=== PATIENT | male | born 1960 | race Caucasian/White ===

== ENCOUNTER 2016-07-28 00:09 | Inpatient (IN) | payer OTHER ==
[2016-07-28] MEDS ORDERED: SODIUM CHLORIDE 0.9% 500 ML IV STA (00:15)
[2016-07-28] MEDS ORDERED: ATORVASTATIN 80 MG TAB PO STA (00:15)
[2016-07-28] MEDS ORDERED: NITROGLYCERIN OINT 1 INCH/GM PACKET TOPICAL STA (00:15)
[2016-07-28] MEDS ORDERED: HEPARIN SODIUM,PORCINE 5,000 UNIT/ML 1 ML VIAL IV ONE (00:15)
--- NOTE | 2016-07-28 00:20 | ED ---
General Adult HPI - General Chief complaint: Chest Pain Stated complaint: Chest Pain Time Seen by Provider: 07/28/16 00:09 Source: patient, EMS, RN notes reviewed Mode of arrival: EMS - History of Present Illness Initial comments: This is a 56-year-old male who presents emergency Department complaining of chest pain. Patient states started approximate one hour ago. Patient states the pain initially began in his left arm and then started in his chest. Patient states he had a short episode of shortness of breath. Patient states he has some diaphoresis. Patient claims he was nauseated as well. Patient states currently the pain is much better after he got nitroglycerin. Patient states he is not short of breath at this time he doesn't feel as though was sweating. Patient denies having any heart history. Patient states he is diabetic. Refuses to take any medicines for it because he doesn't believe in them. Patient states she is a smoker. Patient denies any family history of heart disease. Patient denies headache patient denies numbness weakness. Patient denies any recent fever chills or cough. Patient denies any abdominal pain patient denies any vomiting or diarrhea recently. - Related Data Home Medications Medication Instructions Recorded Confirmed HYDROcodone/APAP 10-325MG [[place] 1 tab PO TID 04/02/14 09/27/15 10] Gabapentin [Gabapentin] 300 mg PO TID 06/06/15 09/27/15 Previous Rx's Medication Instructions Recorded Cephalexin [Keflex] 500 mg PO Q6HR 12 Days 08/25/15 Cephalexin [Keflex] 500 mg PO Q6HR #30 cap 09/04/15 FLUoxetine HCL [PROzac] 10 mg PO DAILY #30 cap 09/04/15 Allergies Allergy/AdvReac Type Severity Reaction Status Date / Time No Known Allergies Allergy Verified 07/28/16 00:14 Review of Systems ROS Statement: Those systems with pertinent positive or pertinent negative responses have been documented in the HPI. ROS Other: All systems not noted in ROS Statement are negative. Past Medical History Past Medical History: Chest Pain / Angina, Diabetes Mellitus Additional Past Medical History / Comment(s): diverticulitis, constipation, freq urination,sob,general chronic pain History of Any Multi-Drug Resistant Organisms: None Reported Past Surgical History: Orthopedic Surgery Additional Past Surgical History / Comment(s): colonoscopy,eye,rt knee, 5 surg to lt ear, eye Past Anesthesia/Blood Transfusion Reactions: Motion Sickness Past Psychological History: Bipolar, Depression Smoking Status: Current every day smoker Past Alcohol Use History: None Reported Additional Past Alcohol Use History / Comment(s): started smoking 1987 Past Drug Use History: None Reported Additional Drug Use History / Comment(s): marijuana daily - Past Family History Mother History Unknown: Yes Father History Unknown: Yes General Exam - General Exam Comments Initial Comments: GENERAL: Patient is well-developed and well-nourished. Patient is nontoxic and well- hydrated and is in mild distress. ENT: Neck is soft and supple. No significant lymphadenopathy is noted. Oropharynx is clear. Moist mucous membranes. Neck has full range of motion without eliciting any pain. EYES: The sclera were anicteric and conjunctiva were pink and moist. Extraocular movements were intact and pupils were equal round and reactive to light. Eyelids were unremarkable. PULMONARY: Unlabored respirations. Good breath sounds bilaterally. No audible rales rhonchi or wheezing was noted. CARDIOVASCULAR: There is a regular rate and rhythm without any murmurs gallops or rubs. ABDOMEN: Soft and nontender with normal bowel sounds. No palpable organomegaly was noted. There is no palpable pulsatile mass. SKIN: Skin is clear with no lesions or rashes and otherwise unremarkable. NEUROLOGIC: Patient is alert and oriented x3. Cranial nerves II through XII are grossly intact. Motor and sensory are also intact. Normal speech, volume and content. Symmetrical smile. MUSCULOSKELETAL: Normal extremities with adequate strength and full range of motion. No lower extremity swelling or edema. No calf tenderness. LYMPHATICS: No significant lymphadenopathy is noted PSYCHIATRIC: Normal psychiatric evaluation. 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 EKG looks consistent for an inferior lateral [place]. Prior to arrival I called a STEMI overhead based on the transmitted EKG. I spoke with Dr. Garduno and the cath team was called in Chest x-ray is normal. I started the patient on heparin bolus of 4000 gave the patient Lipitor 80 mg. I also gave the patient Nitropaste. And 500 mL bolus Critical Care Time Critical Care Time: Yes Total Critical Care Time: 35 Disposition Clinical Impression: ST elevation myocardial infarction (STEMI) Disposition: ADMITTED IP TO THIS [facility] Time of Disposition: 00:22
[2016-07-28 00:31] LABS: Aty Lym Flag Slight; CH 33.9; CHCM 35.6; HCT 48.2 % (39.0-53.0); HDW 2.62; HGB 16.7 gm/dL (13.0-17.5); MCH 33.1 pg (25.0-35.0); MCHC 34.6 g/dL (31.0-37.0); MCV 95.6 fL (80.0-100.0); Mean Platelet Volume 9.3; RBC 5.05 m/uL (4.30-5.90); RDW 13.4 % (11.5-15.5); WBC 8.4 k/uL (3.8-10.6)
[2016-07-28 00:34] LABS: ALT 49 U/L (21-72); AST 47 U/L (17-59); Alkaline Phosphatase 91 U/L (38-126); Anion Gap 9 mmol/L; Blood Urea Nitrogen 18 mg/dL (9-20); Calcium 9.6 mg/dL (8.4-10.2); Carbon Dioxide 30 mmol/L (22-30); Chloride 100 mmol/L (98-107); Glucose 306 mg/dL (74-99); Non-African American GFR(MDRD) >60 (>60 ml/min/1.73 sqM); Potassium 3.9 mmol/L (3.5-5.1); Sodium 139 mmol/L (137-145); Total Bilirubin 0.5 mg/dL (0.2-1.3); Total Protein 6.7 g/dL (6.3-8.2)
[2016-07-28 00:35] LABS: Partial Thromboplastin Time 23.3 sec (22.0-30.0); Prothrombin Time 10.1 sec (9.0-12.0)
[2016-07-28 00:38] LABS: Glucose,Whole Blood 345 mg/dL (75-99)
[2016-07-28] MEDS ORDERED: INSULIN LISPRO (humaLOG) 300 UNIT/3 ML VIAL SQ ONE (00:42)
[2016-07-28] MEDS ORDERED: VERAPAMIL 2.5 MG/ML 2 ML AMP ONE (00:45)
[2016-07-28] MEDS ORDERED: MIDAZOLAM 2 MG/2 ML VIAL ONE (00:45)
[2016-07-28] MEDS ORDERED: LIDOCAINE 2% INJ 20 MG/ML (20 ML MDV) ONE (00:46)
[2016-07-28 00:49] LABS: Add Differential Manual Differential
[2016-07-28 00:51] LABS: Manual Review Performed; Nucleated Red Blood Cells 0 /100 WBC (0-0); Reactive Lymphocytes Present; Total Cells Counted 100
--- NOTE | 2016-07-28 00:53 | XR ---
EXAM: XR Chest, 1 View. CLINICAL HISTORY: Reason: Pain TECHNIQUE: Frontal view of the chest. COMPARISON: Chest radiograph on 12/13/2014 FINDINGS: Hardware: None. Lungs/pleura: Mildly low lung volumes with mild left basilar atelectasis. No focal consolidation. No pleural effusion or pneumothorax. Heart/mediastinum: Normal. No cardiomegaly. Soft tissues: Unremarkable. Bones: Mild calcific tendinosis on the left. No acute fracture. Upper abdomen: Normal. IMPRESSION: Mildly low lung volumes with mild left basilar atelectasis. No focal consolidation.
[2016-07-28 00:59] LABS: Creatine Kinase MB 1.6 ng/mL (0.0-2.4)
[2016-07-28] MEDS ORDERED: IV FLUID CONTINUATION 1,000 ML IV ONE (01:00)
[2016-07-28] MEDS ORDERED: LIDOCAINE 2% INJ 20 MG/ML SQ ONE (01:01)
[2016-07-28 01:02] LABS: Troponin I 0.091 ng/mL (0.000-0.034)
[2016-07-28] MEDS ORDERED: MIDAZOLAM 2 MG/2 ML VIAL IV ONE (01:05)
[2016-07-28] MEDS ORDERED: BIVALIRUDIN BOLUS 250 MG/50 ML IV ONE (01:08)
[2016-07-28] MEDS ORDERED: BIVALIRUDIN 250 MG in SODIUM CHLORIDE 0.9% 50 ML IV ONE (01:09)
[2016-07-28] MEDS: NITROGLYCERIN 1000MCG/10ML SYRINGE INTRACORON ONE ×2 (01:12→01:22)
[2016-07-28] MEDS ORDERED: HYDROmorphone 2 MG/ML 1 ML SYRINGE ONE (01:13)
[2016-07-28] MEDS ORDERED: HYDROmorphone 2 MG/ML 1 ML SYRINGE IV ONE (01:16)
[2016-07-28] MEDS ORDERED: NITROGLYCERIN 1000MCG/10ML SYRINGE INTRACORON ONE (01:26)
[2016-07-28] MEDS ORDERED: PRASUGREL 10 MG TAB ONE (01:28)
[2016-07-28] MEDS ORDERED: PRASUGREL 10 MG TAB PO ONE (01:34)
[2016-07-28] MEDS ORDERED: IOHEXOL 350 MG/ML 100 ML BOTTLE INJ ONE (01:35)
[2016-07-28] MEDS ORDERED: MAG HYDROX/AL HYDROX/SIMETH 30 ML CUP PO PRN (01:47)
[2016-07-28] MEDS ORDERED: ZOLPIDEM 5 MG TAB PO PRN (01:47)
[2016-07-28] MEDS ORDERED: SODIUM CHLORIDE 0.9% 500 ML IV ONE (01:47)
[2016-07-28] MEDS ORDERED: ATROPINE SULFATE 0.1 MG/ML 10ML SYRINGE IV PRN (01:47)
[2016-07-28] MEDS ORDERED: NITROGLYCERIN SL TABS 0.4 MG TAB SUBLINGUAL PRN (01:47)
[2016-07-28] MEDS ORDERED: RX INFO: IV CONTRAST WAS GIVEN 1 EACH MISC MISCELLANE PRN (01:47)
[2016-07-28 01:50] LABS: Magnesium 1.8 mg/dL (1.6-2.3)
--- NOTE | 2016-07-28 01:55 | P.CRDCN ---
History of Present Illness Consult date: 07/28/16 Chief complaint: chest discomfort History of present illness: This is a 56-year-old gentleman who was brought by ambulance to the emergency department because of chest discomfort. The patient was experiencing chest discomfort over the last 3-4 days. Last night discomfort was more intense where he called ambulance and he was found to be an acute inferior ST elevation myocardial infarction. The patient was transferred to the emergency department on subsequently he underwent heart catheterization which showed acute total occlusion of the ostial and proximal right coronary artery. He underwent successful stenting of the ostial/proximal right coronary artery using drug-eluting stent with a good angiographic results and good flow in the RCA. Beside that the patient was found to have severe disease involving the proximal left anterior descending artery and that need to be stented in the next few days. The patient is not aware of any history of diabetes or hypertension or dyslipidemia. He is a smoker for long time. The family history is unknown because the patient is adopted. The patient is going to be admitted to the intensive care unit. He will be started on dual antiplatelet therapy along with anti-ischemic medication and statin. An echocardiogram was Doppler would be performed as well to assess for any wall motion abnormalities and to assess LV function. Past Medical History Past Medical History: Chest Pain / Angina, Diabetes Mellitus Additional Past Medical History / Comment(s): diverticulitis, constipation, freq urination,sob,general chronic pain History of Any Multi-Drug Resistant Organisms: None Reported Past Surgical History: Orthopedic Surgery Additional Past Surgical History / Comment(s): colonoscopy,eye,rt knee, 5 surg to lt ear, eye Past Anesthesia/Blood Transfusion Reactions: Motion Sickness Past Psychological History: Bipolar, Depression Smoking Status: Current every day smoker Past Alcohol Use History: None Reported Additional Past Alcohol Use History / Comment(s): started smoking 1987 Past Drug Use History: None Reported Additional Drug Use History / Comment(s): marijuana daily - Past Family History Mother History Unknown: Yes Father History Unknown: Yes Medications and Allergies Home Medications Medication Instructions Recorded Confirmed Type HYDROcodone/APAP 10-325MG [[place] 1 tab PO TID 04/02/14 07/28/16 History 10] Gabapentin [Gabapentin] 300 mg PO TID 06/06/15 07/28/16 History Allergies Allergy/AdvReac Type Severity Reaction Status Date / Time No Known Allergies Allergy Verified 07/28/16 00:14 Physical Exam Vitals: Vital Signs Pulse Resp BP Pulse Ox 07/28/16 00:36 52 L 18 129/79 99 Intake and Output 07/27/16 07/27/16 07/28/16 14:59 22:59 06:59 Intake Total 200 Balance 200 Intake: IV 200 - Constitutional General appearance: no acute distress - Respiratory Respiratory: bilateral: CTA - Cardiovascular Rhythm: regular Heart sounds: normal: S1, S2 Abnormal Heart Sounds: systolic murmur Results 07/28/16 00:13 07/28/16 00:13 Intake and Output 07/27/16 07/27/16 07/28/16 14:59 22:59 06:59 Intake Total 200 Balance 200 Intake: IV 200 Assessment and Plan Plan: Assessment Acute inferior ST elevation myocardial infarction Significant history of smoking Plan The patient underwent successful stenting of the ostial/proximal RCA Still have severe residual disease involving the proximal LAD ICU admission Dual antiplatelet therapy with IVIS inhibitor and beta nancy and statin An echocardiogram was Doppler Follow-up with the patient
[2016-07-28] MEDS ORDERED: SODIUM CHLORIDE 0.9% 1,000 ML IV SCH (02:00)
[2016-07-28 02:12] LABS: Glucose,Whole Blood 294 mg/dL (75-99)
[2016-07-28 03:01] VITALS: BMI 23.2
[2016-07-28] MEDS ORDERED: HYDROcodone/APAP 10-325MG 1 EACH TAB PO PRN (05:21)
[2016-07-28] MEDS: GABAPENTIN 300 MG CAP PO SCH ×3 (05:57→21:06)
[2016-07-28] MEDS ORDERED: Magnesium Replacement Protocol 1 EACH MISC MISCELLANE PRN (07:20)
[2016-07-28] MEDS ORDERED: Potassium Replacement Protocol 1 EACH MISC MISCELLANE PRN (07:20)
[2016-07-28 07:32] LABS: Glucose,Whole Blood 234 mg/dL (75-99)
[2016-07-28] MEDS ORDERED: POTASSIUM CHLORIDE ER 20 MEQ TAB.ER PO SCH (08:00)
[2016-07-28] MEDS: MAGNESIUM SULFATE-D5W PMX 1 GM in DEXTROSE/WATER 1 100ML.BAG IVPB SCH ×2 (08:12→10:00)
[2016-07-28] MEDS: ONDANSETRON 4 MG/2 ML VIAL IVP PRN ×2 (08:22→19:51)
[2016-07-28] MEDS: INSULIN LISPRO (humaLOG) 300 UNIT/3 ML VIAL SQ SCH ×4 (08:24→21:04)
[2016-07-28 10:12] LABS: Cholesterol 210 mg/dL (<200); HDL Cholesterol 31 mg/dL (40-60); Triglycerides 432 mg/dL (<150)
--- NOTE | 2016-07-28 12:00 | P.PN ---
Subjective Patient underwent coronary angiography and coronary stenting in the setting of an acute inferior posterior lateral [place] When I saw him is complaining of nausea he was given some Zofran but his heart rate and blood pressure were normal and he denied any chest discomfort On examination blood pressure is normal heart rates are normal Pulse rate in the 70s, afebrile 97.8F, blood pressure 119/82 mmHg Normal breath sounds no rhonchi no crackles Heart sounds S1 and S2 are soft no murmurs no gallops Abdomen soft nontender Extremities warm no edema Impression Acute inferior wall NM with normal heart rate and blood pressure and no more chest discomfort status post stenting, patient complaining of nausea and was treated with Zofran and is improving Plan Hold lisinopril, continue beta blockers as long as blood pressure is normal continue antiplatelet agents and statins Continue ICU monitoring Objective - Vital Signs Vital signs: Vital Signs Temp 97.8 F 07/28/16 08:00 Pulse 73 07/28/16 08:00 Resp 13 07/28/16 08:00 BP 119/82 07/28/16 08:00 Pulse Ox 98 07/28/16 08:00 Intake & Output 07/27/16 07/28/16 07/28/16 18:59 06:59 18:59 Intake Total 852 400 Output Total 200 600 Balance 652 -200 Weight 67.3 kg Intake: IV 852 200 Sodium Chloride 0.9% 1, 400 200 000 ml @ 100 mls/hr IV . Q10H HAKAN Rx#:[id number] Intake, IV Titration 200 Amount Magnesium Sulfate-D5w Pmx 200 1 gm In Dextrose/Water 1 100ml.bag @ 100 mls/hr IVPB Q1H HAKAN Rx#: [id number] Output: Urine 200 600 Other: Voiding Method Urinal - Labs CBC & Chem 7: 07/28/16 00:13 07/28/16 00:13 Labs: Abnormal Lab Results - Last 24 Hours (Table) 07/28/16 07/28/16 07/28/16 Range/Units 00:36 02:09 07:30 POC Glucose (mg/dL) 345 H 294 H 234 H (75-99) mg/dL Troponin I (0.000-0.034) ng/mL Triglycerides (<150) mg/dL Cholesterol (<200) mg/dL HDL Cholesterol (40-60) mg/dL 07/28/16 07/28/16 Range/Units 07:42 07:42 POC Glucose (mg/dL) (75-99) mg/dL Troponin I 106.000 H* (0.000-0.034) ng/mL Triglycerides 432 H (<150) mg/dL Cholesterol 210 H (<200) mg/dL HDL Cholesterol 31 L (40-60) mg/dL
--- NOTE | 2016-07-28 12:13 | CC ---
DATE OF SERVICE: July 28, 2016 PERFORMING PHYSICIAN: James Tucker MD, legal executive. PROCEDURE PERFORMED: 1. Selective right and left coronary angiogram. 2. Successful stenting of the ostial/proximal right coronary artery using 2.75 x 23 mm Xience MARIA DEL ROSARIO with a good angiographic results. 3. Left heart catheterization. 4. Left ventriculography. INDICATION: This is a pleasant 56-year-old gentleman with no significant past medical history but history of smoking was brought by ambulance to the emergency room with chest discomfort and acute inferior ST elevation myocardial infarction. An emergent heart catheterization was advised. APPROACH: Right common femoral artery. COMPLICATIONS: None. LEVEL OF SEDATION: Moderate. PROCEDURE DESCRIPTION: After obtaining an informed consent, the patient was brought to the cardiac laboratory engineer. The right common femoral artery was cannulated using micropuncture technique, the micropuncture wire passed easily, then I placed 6 [place] sheath in the right common femoral artery. Subsequently, I did selective right and left coronary angiogram using JR4 and JL4 catheters. After that, I did intervene on the right coronary artery. Please see separate paragraph for that. After that, I did a left heart catheterization and LV gram. SELECTIVE CORONARY ANGIOGRAM: 1. Right coronary artery is a large-caliber vessel and it is a dominant vessel. It is 100% occluded in the proximal portion. 2. The left main is angiographically normal. It bifurcates into the left circumflex and left anterior descending artery. 3. The left circumflex a large-caliber vessel and it is a nondominant vessel. The proximal left circumflex appeared to have mild disease only. It gives rise to the first OM branch, which is a small-caliber vessel, seems to be angiographically normally. The mid left circumflex appeared to have mild disease only and gives rise into second OM, which bifurcates into to two small branches; both appeared to be angiographically normal. The left circumflex after the second OM appeared to be a small-caliber vessel. 4. Left anterior descending artery: The proximal LAD appeared to have a lesion in the range of 70% and seems to be eccentric. The mid LAD and distal LAD appeared to have mild disease only. HEMODYNAMICS: The left ventricular end-diastolic pressure appeared 40 mmHg and no gradient was identified across the aortic valve. Left ventriculography was performed in the [place] projection and using a power injection. The left ventricular systolic function appeared to be preserved with an ejection fraction of 50% to 55% with a inferior wall hypokinesia. PCI OF THE RIGHT CORONARY ARTERY: Anticoagulation was initiated using Angiomax. Subsequently, I took JR 3.5 with side hole guiding catheter and the RCA was engaged. A whisper wire was used to wire the RCA and crossing the acute total occlusion in the proximal portion. Subsequently PTCA ballooning using 2.0 x 12 mm balloon then I deployed 2.75 x 23 mm Xience MARIA DEL ROSARIO, where the stent was positioned under fluoroscopy guidance and it was deployed under 16 atmospheres for 20 seconds. The following angiogram showed good angiographic results. There was a lesion distal to the stent, appeared to be in the range of 40% to 50%. CONCLUSION: 1. Acute inferior ST elevation myocardial infarction. 2. Acute total occlusion of the proximal right coronary artery. 3. Severe disease involving the proximal left anterior descending artery. 4. Successful stenting of the ostial/proximal right coronary artery using 2.75 x 23 mm Xience MARIA DEL ROSARIO with a good angiographic results. 5. Preserved left ventricular systolic function. POSTPROCEDURE MANAGEMENT: 1. Dual antiplatelet therapy. 2. Risk factor modification. 3. Follow up with the patient.
[2016-07-28] MEDS: HYDROcodone/APAP 10-325MG 1 EACH TAB PO SCH ×3 (13:18→21:06)
[2016-07-28] MEDS: ASPIRIN 325 MG TAB PO SCH (13:18)
[2016-07-28 13:19] LABS: Glucose,Whole Blood 282 mg/dL (75-99)
[2016-07-28] MEDS: METOPROLOL TARTRATE 25 MG TAB PO SCH ×2 (13:19→21:07)
--- NOTE | 2016-07-28 13:26 | HP ---
DATE OF ADMISSION: 07/28/2016 56-year-old male single, Room 611 bed 2 in the ICU. HE IS A FULL CODE. He is 5 feet 7 inches height. Weight 67.3 kg, BSA 1.78 sq m body mass index 23.2 kg/sq m and allergy is unknown. Dictating the admission history and physical by Dr. Connor 07/28/2016 in the temporary absence of Dr. Meyer. HISTORY AND CHIEF COMPLAINT: The patient presented to the emergency room at [facility] and he is a 56-year-old male. He stated to Dr. Mclain who was in the ER physician and he stated that he had a chest pain and the chest pain started one hour prior to arrival and started in his left side of the neck and left arm and was pressure like in the chest and he had a short episode of shortness of breath and he had some radiation with it. When he arrived, the pain has been improved by nitroglycerin. At the time presentation in the emergency room, stated that the patient denied any history of DC in the past. He has history of diabetes mellitus, type II and hypertension, but he was not like to take medication. He denied also family history of heart disease and no headache. No numbness in the extremities. No fever, no chills, no cough, no vomiting, no diarrhea. The patient subsequently had EKG found that he had ST segment elevation in the inferior lead II-III and aVF and found that his troponin is elevated and with presentation of acute myocardial infarction in the inferior lead. The patient taken to the cardiac cath immediately by Dr. Tucker who was notified and did cardiac catheterization and subsequently they found that presentation right coronary artery disease and at that time stented with successful stenting of the ostial/proximal right coronary artery using drug eluting stent with good angiographic results and good flow in the right coronary artery. The patient also found that he had a severe disease involving the proximal left anterior descending that needs to be stented. However, not at this time when the patient is stabilized. Subsequently patient transferred to the ICU by monitor and he started by Dr. Tucker on dual antiplatelet therapy and statin. He ordered an echocardiogram to be done in the future. The patient in the hospital. The patient was seen today and discussed with him in the ICU, and he is comfortable. He had no chest pain. He is stable hemodynamically and blood pressure stable and discussed with him his past history. The patient he had history of anxiety, depression, questionable bipolar. He was seen in the past by [facility] psychiatry group, also he was seen for chronic back pain, by Dr. Sánchez who is treating him with medication for the pain control that we have been continued. The patient history also of diabetes mellitus type 2. He denied any urinary tract infection and he stated that he may have enlarged prostate but he does not know for sure. He denied any surgical orthopedically ( ) apparently he may have also have other psychiatric disorder, unclear at this point. He smokes, he is not clear how much he is smoking, per day but he smoked every day as well. He also smokes marijuana on a daily basis as well. He stated that he had in the stomach area some discomfort intermittently for the last two weeks. However, he denied any blood in the stools or black stools probably he may have some heartburn. He started smoking in 1987 and he does not report alcohol intake. SOCIAL HISTORY: He stated he never . However, he has 3 children, two boys and one girl. His parents he does not want to speak about. Allergy is unknown. Current medication is hydrocodone and Gabapentin which has been reviewed. On the current physical exam, patient is conscious, alert, oriented and his vital signs indicating that his blood pressure 119/82 with a mean 94 and a temperature of 98 nasal cannula on 2 L, temperature 97.8, pulse ox 98 on 2 liters. His respiratory rate ranging between 15 to 13. HEENT: His head was normocephalic, atraumatically shaved his hair of the head. His pupils he has symmetric pupils with the underlying right eye atraumatic penetration with a screwdriver but he still sees with it. Left eye is normal with the pupils reactive. Ears negative with normal hearing. The nose is negative. Oropharynx he had significant gum disease and also distortion of his teeth and needs significant care for his oropharynx. The neck was supple. No JVD. No thyromegaly. No lymphadenopathy. Trachea midline. CHEST: Clear to auscultation and percussion. No wheezes, no rhonchi. HEART: PMI in the fifth intercostal space, mildly outside the midclavicular line. Normal S1, S2. No gallop. The abdomen was soft, nontender. Positive bowel sounds. Even that he mentioned that he had some discomfort. Examined with the deep palpation with no evidence of pain. Plank area clear from any tenderness or pain, no suprapubic tenderness. His genitalia circumcised and normal testicle and he has been shaved for the catheterization which was done from the right femoral. No evidence of bleeding. EXTREMITIES: He had pigmentation and depigmentation with questionable that he had vertiglio versus stasis dermatitis. He stated that he has that in his late 30s, unclear at that time, pulses also perfused bilaterally. Neurologically he is stable and psychiatry he currently is stable. ASSESSMENT: 1. Acute non-ST elevation myocardial infarction in the inferior wall. 2. Status post cardiac cath and stenting of the right coronary ostial and proximal right coronary artery with successful. 3. Severe disease of the left anterior descending coronary artery. 4. Oropharyngeal gum disease and denture and oral care. 5. History of diabetes mellitus and Type 2. 6. Elevated troponin secondary to acute myocardial infarction. 7. Chronic pain syndrome and resumed his medication. His blood sugar at the time of admission was 306 and the magnesium was 108. His CPK 184. Troponin was 0.091 and the second was [address] segment elevation in the inferior lead. His lipid profile was triglyceride was 432. His total cholesterol was 210 and HDL was 31, with abnormally low HDL. PLAN: 1. Notifying Dr. Meyer in a.m. 7:00 a.m. of the patient's admission. 2. Continuing the current medication. 3. Echocardiogram will be done by tomorrow for the heart and resuming his pain medication and chronic pain medication as well. 4. Monitoring in the ICU. The admission history and physical. The patient had a chest x-ray on the admission. The chest x-ray was indicating low lung volume with mild left basilar atelectasis. Patient will be followed by Dr. Meyer in a.m.
[2016-07-28] MEDS ORDERED: HYDROcodone/APAP 10-325MG 1 EACH TAB PO SCH (16:00)
[2016-07-28 16:55] LABS: Glucose,Whole Blood 242 mg/dL (75-99)
[2016-07-28] MEDS: LISINOPRIL 10 MG TAB PO SCH (17:14)
[2016-07-28 19:58] LABS: Glucose,Whole Blood 114 mg/dL (75-99)
[2016-07-28] MEDS: ATORVASTATIN 80 MG TAB PO SCH (21:06)
[2016-07-29] MEDS ORDERED: PRASUGREL 10 MG TAB PO SCH (01:48)
[2016-07-29] MEDS: GABAPENTIN 300 MG CAP PO SCH ×4 (02:16→23:12)
[2016-07-29] MEDS ORDERED: HALOPERIDOL LACTATE 5 MG/ML 1 ML VIAL IM PRN ×3 (05:26→10:03)
[2016-07-29] MEDS ORDERED: HALOPERIDOL LACTATE 5 MG/ML 1 ML VIAL IM STA (05:29)
[2016-07-29] MEDS: INSULIN LISPRO (humaLOG) 300 UNIT/3 ML VIAL SQ SCH ×4 (06:15→21:34)
[2016-07-29] MEDS ORDERED: ONDANSETRON 4 MG TAB PO PRN (09:24)
[2016-07-29] MEDS ORDERED: LORazepam 2 MG/ML SYRINGE IM PRN (10:02)
[2016-07-29 10:10] LABS: Basophils % (A) 0 %; CH 33.6; Eosinophils # (A) 0.1 k/uL (0-0.7); Eosinophils % (A) 1 %; HCT 48.2 % (39.0-53.0); HDW 2.54; HGB 16.3 gm/dL (13.0-17.5); Luc % (Auto) 2; Lymphocytes # (A) 2.2 k/uL (1.0-4.8); Lymphocytes % (A) 20 %; MCH 32.6 pg (25.0-35.0); MCHC 33.8 g/dL (31.0-37.0); MCV 96.5 fL (80.0-100.0); Mean Platelet Volume 9.1; Monocytes # (A) 0.7 k/uL (0-1.0); Monocytes % (A) 6 %; Neutrophils # (A) 7.6 k/uL (1.3-7.7); Neutrophils % (A) 70 %; RBC 4.99 m/uL (4.30-5.90); RDW 13.4 % (11.5-15.5); WBC 10.8 k/uL (3.8-10.6); WBC (Perox) 10.45
--- NOTE | 2016-07-29 10:11 | ECHOF ---
Referral Reason:stemi MEASUREMENTS -------- HEIGHT: 170.2 cm WEIGHT: 67.1 kg BP: 136/82 RVIDd: 2.6 cm (< 3.3) IVSd: 1.2 cm (0.6 - 1.1) LVIDd: 4.2 cm (3.9 - 5.3) LVPWd: 1.0 cm (0.6 - 1.1) IVSs: 1.6 cm LVIDs: 2.7 cm LVPWs: 1.8 cm LA Diam: 3.3 cm (2.7 - 3.8) LAESV Index (A-L): 12.68 ml/m Ao Diam: 3.4 cm (2.0 - 3.7) AV Cusp: 2.3 cm (1.5 - 2.6) MV EXCURSION: 16.095 mm (> 18.000) MV EF SLOPE: 103 mm/s (70 - 150) EPSS: 0.2 cm MV E Gopi: 0.74 m/s MV DecT: 166 ms MV A Gopi: 0.55 m/s MV E/A Ratio: 1.36 FINDINGS -------- Sinus rhythm. This was a technically good study. The left ventricular size is normal. There is borderline concentric left ventricular hypertrophy. Overall left ventricular systolic function is normal with, an EF between 55 - 60 %. The right ventricle is normal in size and function. Normal LA size by volume 22+/-6 ml/m2. The right atrium is normal in size. Aortic valve is trileaflet and is mildly thickened. There is trace to mild mitral regurgitation. The tricuspid valve appears structurally normal. The pulmonic valve is normal. The aortic root size is normal. Normal inferior vena cava with normal inspiratory collapse consistent with estimated right atrial pressure of 5 mmHg. There is no pericardial effusion. CONCLUSIONS -------- 1. Sinus rhythm. 2. There is trace to mild mitral regurgitation. 3. The tricuspid valve appears structurally normal. 4. The pulmonic valve is normal. 5. The aortic root size is normal. 6. Normal inferior vena cava with normal inspiratory collapse consistent with estimated right atrial pressure of 5 mmHg. 7. There is no pericardial effusion. 8. This was a technically good study. 9. The left ventricular size is normal. 10. There is borderline concentric left ventricular hypertrophy. 11. Overall left ventricular systolic function is normal with, an EF between 55 - 60 %. 12. The right ventricle is normal in size and function. 13. Normal LA size by volume 22+/-6 ml/m2. 14. The right atrium is normal in size. 15. Aortic valve is trileaflet and is mildly thickened. [employer]: Ladonna Baugh RDCS
[2016-07-29] MEDS: ASPIRIN 325 MG TAB PO SCH (10:14)
[2016-07-29] MEDS: HYDROcodone/APAP 10-325MG 1 EACH TAB PO SCH ×3 (10:16→23:12)
[2016-07-29] MEDS: LISINOPRIL 10 MG TAB PO SCH (10:17)
--- NOTE | 2016-07-29 10:17 | P.HP ---
Psychiatric H&P - . H&P Date: 07/29/16 History & Physical: IDENTIFYING DATA: He is a 56-year-old male admitted to medicine service on with an acute MS. He underwent coronary angiography and coronary stenting. Medicine consulted psychiatry due to increased anger and threats of property damage. HISTORY OF PRESENT ILLNESS: I reviewed the medical record and attempted to interview Mr. Forte. He is minimally cooperative with the interview. After approximately 10 minutes he ordered be out of the room. He alleged that he is angry because "they" have changed his medications and will not explain why he is prescribed his current medications. He complained about nursing alleging that they have not provide adequate information about his treatment. When I asked him about threats of property damage, e.g., that he threatened to break a window as he had during his last hospitalization he became angrier, pointed his finger at me and ordered me out of the room. PAST PSYCHIATRIC HISTORY: He was admitted to psychiatry in August 2015 on transfer from medicine service where he tried to break a window and escape from the fourth floor. On the psychiatry unit he was hyperverbal, argumentative, irritable and easily agitated. There was no evidence of psychosis. The discharge diagnosis included schizoaffective disorder and an unspecified personality disorder. His discharge medications included Prozac 10 mg daily. We referred him to [facility] but according to information from [facility] he did not follow through with this recommendation. MENTAL STATUS EXAM: He presented as a pale appearing thin balding elderly male who is irritable and angry. He made eye contact and appeared to attend to interview. He had no distinguishing features or prominent physical abnormalities. He had an angry facial expression. He was alert and oriented to person, place and time. He was restless but displayed no abnormal involuntary movements. His speech was spontaneous with increased rate and volume. His affect was angry at times intense and inappropriate. He denied suicidal ideation or wishes. He denied homicidal ideation. He denied feeling hopeless or helpless. He did not express ideas reference, paranoid ideation or delusional thinking. His thinking was concrete but his associations were coherent. He did not appear to be responding to internal stimuli. IMPRESSIONS: He is an angry and impulsive man with limited education and impaired ability to cope changes. He is angry regarding with the regimen involve with post MS coronary care. He is not psychotic and and has a clear mental mentation inonsistent with an acute delirium. I am uncertain if his anger and irritability is related to a psychiatric syndrome. DIAGNOSIS: Adjustment disorder with disturbance of mood and behavior PLAN: Haloperidol 5 mg IM every 4 hours when necessary for agitation and/or lorazepam 2 mg IM every 4 hours when necessary for agitation. Discharge home once medically stable Allergies Allergy/AdvReac Type Severity Reaction Status Date / Time No Known Allergies Allergy Verified 07/28/16 08:36 Vital Signs Temp 98.6 F 07/29/16 00:00 Pulse 65 07/29/16 01:00 Resp 18 07/29/16 04:00 BP 136/82 07/29/16 04:00 Pulse Ox 99 07/29/16 04:00 Intake & Output 07/28/16 07/29/16 07/29/16 18:59 06:59 18:59 Intake Total 1100 500 Output Total 1300 900 Balance -200 -400 Intake: IV 700 0 Sodium Chloride 0.9% 1, 700 0 000 ml @ 100 mls/hr IV . Q10H HAKAN Rx#:[id number] Intake, IV Titration 200 Amount Magnesium Sulfate-D5w Pmx 200 1 gm In Dextrose/Water 1 100ml.bag @ 100 mls/hr IVPB Q1H HAKAN Rx#: [id number] Oral 200 500 Output: Urine 1300 900 Other: Voiding Method Urinal Urinal # Voids 1 Laboratory Last Values WBC 8.4 k/uL (3.8-10.6) 07/28/16 00:13 RBC 5.05 m/uL (4.30-5.90) 07/28/16 00:13 Hgb 16.7 gm/dL (13.0-17.5) 07/28/16 00:13 Hct 48.2 % (39.0-53.0) 07/28/16 00:13 MCV 95.6 fL (80.0-100.0) 07/28/16 00:13 MCH 33.1 pg (25.0-35.0) 07/28/16 00:13 MCHC 34.6 g/dL (31.0-37.0) 07/28/16 00:13 RDW 13.4 % (11.5-15.5) 07/28/16 00:13 Plt Count 146 k/uL (150-450) L 07/28/16 00:13 Neutrophils % Not Reportable 07/28/16 00:13 Neutrophils % (Manual) 49.0 % 07/28/16 00:13 Lymphocytes % Not Reportable 07/28/16 00:13 Lymphocytes % (Manual) 36.0 % 07/28/16 00:13 Monocytes % Not Reportable 07/28/16 00:13 Monocytes % (Manual) 11.0 % 07/28/16 00:13 Eosinophils % Not Reportable 07/28/16 00:13 Eosinophils % (Manual) 4.0 % 07/28/16 00:13 Basophils % Not Reportable 07/28/16 00:13 Neutrophils # Not Reportable 07/28/16 00:13 Neutrophils # (Manual) 4.1 k/uL (1.3-7.7) 07/28/16 00:13 Lymphocytes # Not Reportable 07/28/16 00:13 Lymphocytes # (Manual) 3.0 k/uL (1.0-4.8) 07/28/16 00:13 Monocytes # Not Reportable 07/28/16 00:13 Monocytes # (Manual) 0.9 k/uL (0-1.0) 07/28/16 00:13 Eosinophils # Not Reportable 07/28/16 00:13 Eosinophils # (Manual) 0.3 k/uL (0-0.7) 07/28/16 00:13 Basophils # Not Reportable 07/28/16 00:13 Nucleated RBCs 0 /100 WBC (0-0) 07/28/16 00:13 Manual Slide Review Performed 07/28/16 00:13 Reactive Lymphocytes Present 07/28/16 00:13 PT 10.1 sec (9.0-12.0) 07/28/16 00:13 INR 1.0 (<1.1) 07/28/16 00:13 APTT 23.3 sec (22.0-30.0) 07/28/16 00:13 Sodium 139 mmol/L (137-145) 07/28/16 00:13 Potassium 3.9 mmol/L (3.5-5.1) 07/28/16 00:13 Chloride 100 mmol/L (98-107) 07/28/16 00:13 Carbon Dioxide 30 mmol/L (22-30) 07/28/16 00:13 Anion Gap 9 mmol/L 07/28/16 00:13 BUN 18 mg/dL (9-20) 07/28/16 00:13 Creatinine 1.10 mg/dL (0.66-1.25) 07/28/16 00:13 Est GFR (MDRD) Af Amer >60 (>60 ml/min/1.73 sqM) 07/28/16 00:13 Est GFR (MDRD) Non-Af >60 (>60 ml/min/1.73 sqM) 07/28/16 00:13 Glucose 306 mg/dL (74-99) H 07/28/16 00:13 POC Glucose (mg/dL) 114 mg/dL (75-99) H 07/28/16 19:56 POC Glu Extrusion Press Adjuster ID Candelaria Stanford 07/28/16 19:[address] Glu mg/dL 240 mg/dL 07/28/16 07:42 Hemoglobin A1c 10.0 % (4.2-6.1) H 07/28/16 07:42 Calcium 9.6 mg/dL (8.4-10.2) 07/28/16 00:13 Magnesium 1.8 mg/dL (1.6-2.3) 07/28/16 00:13 Total Bilirubin 0.5 mg/dL (0.2-1.3) 07/28/16 00:13 AST 47 U/L (17-59) 07/28/16 00:13 ALT 49 U/L (21-72) 07/28/16 00:13 Alkaline Phosphatase 91 U/L (38-126) 07/28/16 00:13 Total Creatine Kinase 184 U/L (55-170) H 07/28/16 00:13 CK-MB (CK-2) 1.6 ng/mL (0.0-2.4) 07/28/16 00:13 CK-MB (CK-2) Rel Index 0.9 07/28/16 00:13 Troponin I 106.000 ng/mL (0.000-0.034) H* 07/28/16 07:42 Total Protein 6.7 g/dL (6.3-8.2) 07/28/16 00:13 Albumin 3.9 g/dL (3.5-5.0) 07/28/16 00:13 Triglycerides 432 mg/dL (<150) H 07/28/16 07:42 Cholesterol 210 mg/dL (<200) H 07/28/16 07:42 LDL Cholesterol, Calc mg/dL (0-99) 07/28/16 07:42 HDL Cholesterol 31 mg/dL (40-60) L 07/28/16 07:42 07/29/16 10:04
[2016-07-29] MEDS: PRASUGREL 10 MG TAB PO SCH (10:18)
[2016-07-29] MEDS: METOPROLOL TARTRATE 25 MG TAB PO SCH ×2 (10:18→23:12)
[2016-07-29 10:35] LABS: ALT 74 U/L (21-72); AST 128 U/L (17-59); Alkaline Phosphatase 67 U/L (38-126); Anion Gap 8 mmol/L; Blood Urea Nitrogen 13 mg/dL (9-20); Calcium 9.2 mg/dL (8.4-10.2); Carbon Dioxide 24 mmol/L (22-30); Chloride 105 mmol/L (98-107); Glucose 225 mg/dL (74-99); Magnesium 1.9 mg/dL (1.6-2.3); Non-African American GFR(MDRD) >60 (>60 ml/min/1.73 sqM); Potassium 4.5 mmol/L (3.5-5.1); Sodium 137 mmol/L (137-145); Total Bilirubin 0.9 mg/dL (0.2-1.3); Total Protein 6.7 g/dL (6.3-8.2)
[2016-07-29 11:57] LABS: Glucose,Whole Blood 216 mg/dL (75-99)
--- NOTE | 2016-07-29 14:45 | P.PN ---
Subjective Principal diagnosis: STEMI This is a 56-year-old gentleman who presented to the hospital with an ST elevation myocardial infarction. He underwent angioplasty with stenting of the right coronary artery. Patient also has approximate 70% lesion in the LAD. Patient apparently became quite combative, was threatening to hurt other people as well as raising the suspicion of a possible suicide. He currently has a sitter at the bedside. Today patient had mild discomfort in his abdomen, he denies any chest pain. Hemodynamically stable. Objective - Vital Signs Vital signs: Vital Signs Temp 97.6 F 07/29/16 11:42 Pulse 67 07/29/16 11:42 Resp 16 07/29/16 11:42 BP 101/62 07/29/16 11:42 Pulse Ox 99 07/29/16 11:42 Intake & Output 07/28/16 07/29/16 07/29/16 18:59 06:59 18:59 Intake Total 1100 500 100 Output Total 1300 900 Balance -200 -400 100 Weight 67.3 kg Intake: IV 700 0 Sodium Chloride 0.9% 1, 700 0 000 ml @ 100 mls/hr IV . Q10H HAKAN Rx#:[id number] Intake, IV Titration 200 Amount Magnesium Sulfate-D5w Pmx 200 1 gm In Dextrose/Water 1 100ml.bag @ 100 mls/hr IVPB Q1H HAKAN Rx#: [id number] Oral 200 500 100 Output: Urine 1300 900 Other: Voiding Method Urinal Urinal # Voids 1 1 - Exam PHYSICAL EXAMINATION: HEENT: Head is atraumatic, normocephalic. Pupils equal, round. Neck is supple. There is no elevated jugular venous pressure. HEART EXAMINATION: Heart S1, S2 normal. No murmur or gallop heard. CHEST EXAMINATION: Lungs are clear to auscultation and precussion. No chest wall tenderness is noted on palpation or with deep breathing. ABDOMEN: Soft, nontender. Bowel sounds are heard. No organomegaly noted. Right groin soft, no evidence of any hematoma. EXTREMITIES: 2+ peripheral pulses with no evidence of peripheral edema and no calf tenderness noted. NEUROLOGIC patient is awake, alert and oriented -3. . - Labs CBC & Chem 7: 07/29/16 09:34 07/29/16 09:34 Labs: Abnormal Lab Results - Last 24 Hours (Table) 07/28/16 07/28/1617 Range/Units 16:53 19:56 09:34 WBC 10.8 H (3.8-10.6) k/uL Plt Count 134 L (150-450) k/uL Glucose (74-99) mg/dL POC Glucose (mg/dL) 242 H 114 H (75-99) mg/dL Hemoglobin A1c (4.2-6.1) % AST (17-59) U/L ALT (21-72) U/L 07/29/16 07/29/16 07/29/16 Range/Units 09:34 09:34 11:44 WBC (3.8-10.6) k/uL Plt Count (150-450) k/uL Glucose 225 H (74-99) mg/dL POC Glucose (mg/dL) 216 H (75-99) mg/dL Hemoglobin A1c 10.0 H (4.2-6.1) % AST 128 H (17-59) U/L ALT 74 H (21-72) U/L Assessment and Plan (1) ST elevation (STEMI) myocardial infarction involving right coronary artery Status: Acute (2) HTN (hypertension) Status: Acute (3) Hyperlipemia Status: Acute (4) Psychiatric disorder Status: Acute (5) Uncontrolled diabetes mellitus Status: Acute Plan: From cardiology's perspective, we'll recommend to continue aspirin, Lipitor, lisinopril, Effient 10 mg daily, metoprolol tartrate 25 mg one tablet by mouth twice a day. Plan for possible discharge home or to 3 E. in 24-48 hours if stable. DNP note has been reviewed, I agree with a documented findings and plan of care. Patient was seen and examined.
--- NOTE | 2016-07-29 15:01 | US ---
EXAMINATION TYPE: US abdomen complete DATE OF EXAM: 07/29/2016 2:41 PM COMPARISON: NONE CLINICAL HISTORY: 56-year-old male pain. LUQ pain, recent STEMI, NPO. TECHNIQUE: Multiple sonographic images of the abdomen are obtained. FINDINGS: Liver Length: 16.2 cm Gallbladder Wall: 0.3 cm CHD: 0.4 cm Spleen: 8.6 cm Right Kidney: 10.6 x 5.8 x 5.6 cm Left Kidney: 10.2 x 5.0 x 5.4 cm Pancreas: Obscured by bowel gas Liver: Echogenic and attenuating. A couple hypoechoic area along the gallbladder fossa likely focal fatty sparing. Gallbladder: No abnormal gallbladder distention, wall thickening, pericholecystic fluid, or shadowin g calculi. Evidence for sonographic Edgar's sign: Negative CHD: Normal caliber. Spleen: Normal size. Right Kidney: Dromedary hump without hydronephrosis. Left Kidney: No hydronephrosis. Upper IVC: No gross abnormality. Abd Aorta: suboptimal views due to overlying bowel gas IMPRESSION: Echogenic and attenuating liver. Correlate for hepatic steatosis with LFTs, lipid profile, and patien t risk factors.
--- NOTE | 2016-07-29 15:25 | PN ---
Age 56-year-old white male, bed 657-2. New data: He is a FULL CODE. New data: Height 5 feet 7 inches. Weight 67.3 kg, BSA 1.78 sq m, BMI 23.2 kg/sq m. Allergy is unknown. Patient presented to the emergency room with chest pain found that he had EKG indicated ST segment elevation in the inferior lead with significant elevation of troponin was sent directly to the cardiac catheterization where Dr. Tucker spring inspector did cardiac catheterization as well he did angioplasty with a stent placement and found that he had the ostial of the right coronary artery was occluded and significantly improvement after the stenting. The patient subsequently sent to the ICU, where they notified, I was Dr. Connor for the patient PCP attending physician is Dr. Zain Meyer. I did see the patient and evaluated him in the ICU and subsequently I did advise him in the ICU he had notion to leave the hospital and sign out AMA and as well as he has anger and he does not want to follow protocol. I did discuss with him in detail the importance of cooperation and compliance with treatment especially after he had stents and also in need of the antiplatelet therapy and also to prevent the preclusion of arrhythmia and needs to be monitored. Patient subsequently was transferred to the [facility] telemetry floor on 657-2 where he was extreme agitation and at that time early intervention school psychologist hour 3:00 a.m. he was threatening the nurses with leaving the hospital or escape with his past history he was previously in [facility] where he tried to jump from the window. At that time patient, the patient received an order of Haldol one dose 1 mg and seen by the psychiatrist which with the consultation was requested. I did see the patient today again and discussed with him what is the problem that he suffers from at this point and he is angry. I did explain to him with his heart attack, he needs to have the telemetry and he needs to have the IV in case of any emergency. I did explain to him also he needs the heart to rest. He indicating that he had abdominal pain he had these abdominal pains for 2 weeks and his nurse Gene was present in the discussion and he wants to have solution for his pain in his abdomen. I did examine his abdomen and there is no significant physical finding, however, I ordered ultrasound of the abdomen for clarification of his pain in the left upper quadrant which is not probable could be associated with this stomach, unclear at this time until we have the first stage. His vital signs was stable at this time and I did discuss with the patient that he needs to have the lunchroom monitor to avoid any extra arrhythmia and also to check his electrolytes as well as the white count and see how he is doing with these laboratories. Patient subsequently he was seen by the psychiatrist Dr. Schaffer, and he did see him and evaluated him and he stated that in his impression that the patient is angry and impulsive with limited education and impaired ability to cope with the changes. He stated also that he is angry regarding the regimen involved in post NV coronary care. He is not psychotic and has a clear mental mentation inconsistent with an acute delirium. He stated that I am certain with his anger and irritability is related to psychiatric ( ). His diagnosis of adjustment disorder with disturbance of his mood and behavior and his recommendations and plan to have Haldol 5 mg IM every 4 hours when necessary for agitation. He also has ordered for ( ) 2 mg IM every 4 hour p.r.n. for agitation and to be discharged home when he is medically stable. Allergy is unknown. His current today. Vital signs indicating temperature was 98.6, pulse 65, respiratory rate was 18, blood pressure 136/62, pulse ox on room air was 99%. The patient on exam face to face, conscious, alert, oriented and he after the explanation he agreed to have blood and put the lunchroom monitor and he stated that "I did pull it out and I did pull the IV out myself. Nobody else did that to me". I advised him to have at least the Hep line so we can reach if we need emergency as well as the lunchroom monitor and the laboratory. The patient also is diabetic. He refused POC CBG before each meal to cover with insulin and he believed that he does not have no problem. His hemoglobin A1c is more than 10. With difficult to convince him with his illness, he has diabetes mellitus type 2, and history of dyslipidemia. On physical examination again, HEENT: Was negative. He has severe oral hygienic problem and gum disease. The neck was supple. No lymphadenopathy. Trachea midline. The chest was clear to auscultation and percussion. No wheezes, no rhonchi. HEART: The heart is regular sinus rhythm and no dysrhythmia on auscultation. ABDOMEN: Soft. Positive bowel sounds. No tenderness. However, we will obtain the echocardiogram as well to clarify the issue of the pain in the abdominal area, left-sided that we could not have the physical finding for it. EXTREMITIES: No edema and positive pulses. On his laboratories indicate today that his white count 10.8 and hemoglobin 16.3 and platelet count was 134. Slightly below the normal range but he is on dual antiplatelet and his sodium 137, potassium 4.5. Estimated glomerular filtration rate more than 60, blood sugar was 225 this morning. His hemoglobin A1c was 10, magnesium was 1.9 and his abnormal liver enzyme 128, AST and ALT 74. However, that alkaline phosphatase and protein and albumin within normal limits. Again his blood pressure has been fairly well controlled and occasionally 137/93 and subsequently his fluctuating, his heart rate is normal. ASSESSMENT: 1. Acute myocardial infarction with the acute non-ST elevated myocardial infarction in the territory of acute inferior wall myocardial infarction. 2. Underlying angioplasty and stent in the right coronary artery ostium by Dr. Tucker on the july. 3. Underlying diabetes mellitus type 2, uncontrolled, the patient refusal to have any treatment. 4. Dyslipidemia with low HDL. 5. Underlying psychiatric syndrome and with the underlying refusal of treatment despite discussion and rediscussion to inform him of the risk for him as well as the psychiatrist. PLAN: 1. Continue the current treatment and with the pre labs, he had mild enzyme elevation, liver enzyme elevation that it could be associated with acute NV. 2. He had an echocardiogram and that was done today read by Dr. Rosalia Gomez and found that the echocardiogram did he had sinus rhythm. Ejection fraction was 55 to 60 with overall left ventricular systolic function is normal. They found also that he had a trace to mild mitral regurgitation. He had aortic valve trileaflet and normal inferior vena cava. Cardiology currently is following him as well. Dr. Chong saw him yesterday. The patient will be still monitored as I discussed with him and he agreeing at that time. This patient is attending physician is Dr. Zain Meyer dictating progress note in the temporary absence of Dr. Meyer by Dr. Connor.
[2016-07-29 16:40] LABS: Glucose,Whole Blood 245 mg/dL (75-99)
[2016-07-29 20:39] LABS: Glucose,Whole Blood 231 mg/dL (75-99)
[2016-07-29] MEDS: ATORVASTATIN 80 MG TAB PO SCH (23:12)
[2016-07-30 06:18] LABS: Glucose,Whole Blood 242 mg/dL (75-99)
[2016-07-30] MEDS: INSULIN LISPRO (humaLOG) 300 UNIT/3 ML VIAL SQ SCH ×4 (06:29→20:56)
[2016-07-30] MEDS: PRASUGREL 10 MG TAB PO SCH (08:15)
[2016-07-30] MEDS: METOPROLOL TARTRATE 25 MG TAB PO SCH ×2 (08:15→20:56)
[2016-07-30] MEDS: GABAPENTIN 300 MG CAP PO SCH ×3 (08:15→23:50)
[2016-07-30] MEDS: LISINOPRIL 10 MG TAB PO SCH (08:15)
[2016-07-30] MEDS: HYDROcodone/APAP 10-325MG 1 EACH TAB PO SCH ×3 (08:16→23:49)
[2016-07-30] MEDS: ASPIRIN 325 MG TAB PO SCH (08:16)
[2016-07-30 11:23] LABS: Hepatitis B Surface Ag Index 0.06
[2016-07-30 11:29] LABS: Hepatitis B Core IgM Index 0.03
[2016-07-30 11:41] LABS: Hepatitis C Virus IgG Index 0.14
[2016-07-30 11:48] LABS: Hepatitis C Virus IgG Ab Negative (Negative)
--- NOTE | 2016-07-30 12:01 | PN ---
DATE OF SERVICE: 07/30/2016 The patient is a 56-year-old white male, single. NEW DATA: He is a FULL CODE. His height is 5 feet 7 inches. Weight 72.6 kg. BSA 1.84 sq m, BMI 25.1 kg/sq. m. Allergy is unknown. Patient seen today, evaluated [id number] discussed with him his current complaint as he was complaining with the pain under the ribs on the left side and he thought that he had some problem with his abdomen because it has been for the last 2 weeks. Patient when he came to the emergency room found that he had acute myocardial infarction, STEMI, with the acute inferior wall [place], underwent cardiac catheterization and stent in the ostium of the right coronary artery where he was having the problem with the chest pain as he presented with. The patient has agitation and he had underlying psychiatric disorder as well as he is resistant and he refused adamantly treatment for diabetes mellitus in spite the discussion that his hemoglobin A1c was 10. He refused even the pills or the insulin. Today as discussed with the patient, his current finding with the current ultrasound of the abdomen was indicating he has a normal liver length and gallbladder, common hepatic duct, spleen, right kidney and left kidney within normal limits. The conclusion of the ultrasound is there is echogenic and attenuation of the liver indicating hepatic steatosis with the combination of liver enzymes which is elevated probably this is the finding has been fatty liver. I did discuss with him that it could be contusion to the ribs could be an issue for him prior to admission to the hospital fell down or hit himself on any other objects. Discussed with him today as well his laboratory which indicating white count is 10.8 , that was yesterday 10.8 white count. He had blood sugar 242 this morning and that was indicating the hyperglycemia still present with the hemoglobin A1c 10 and his AST 128 and ALT 74. He stated that he does not drink alcohol, but I did inform him about the probability high with hepatic steatosis. His potassium is normal. Magnesium is normal. Otherwise stable general condition. His vital signs indicating temperature 97.7, pulse 72, blood pressure 117/86, mean is 96, on room air 93%. On examination, patient is extremely appreciating the service as well as he appeared to be different person today as he is pleasant, able to communicate very appropriately. His examination, HEENT was negative except he has gum disease and hygienic orally for the teeth as well as evaluation by dentist. His neck was supple and chest was clear to auscultation and percussion. Heart was regular sinus rhythm and he had echocardiogram was negative. His abdomen is soft at this time, nontender. On the ribs, he may have minimal discomfort; however, does not appear there is any fracture and his prior chest x-ray was negative. Extremities, no edema and positive pulses bilateral. ASSESSMENT: 1. Diabetes mellitus with hyperglycemia and I did discuss with him to try to take the pills, he refused. Try to take the insulin and I did extremely emphasize on the insulin at this time and he will be during his hospital stay he will be accepting the insulin coverage and Dr. Meyer will be back to follow him and he may compromised with Dr. Meyer the treatment as he resistant for the treatment. 2. The patient has underwent the stent for acute myocardial infarction and still monitored by cardiology for the treatment and he will be followed subsequently by Dr. Meyer probably tomorrow and decision to go home or to stay and to be followed. At this time, patient is followed by cardiology as well as Dr. Tucker and Dr. Chong. His electrolytes within normal limits as well. We will repeat lab for tomorrow. Dr. Meyer will be taking over for the care for patient. BARB
[2016-07-30 12:04] LABS: Glucose,Whole Blood 217 mg/dL (75-99)
--- NOTE | 2016-07-30 15:29 | P.PN ---
Subjective Principal diagnosis: STEMI This is a 56-year-old gentleman who presented to the hospital with an ST elevation myocardial infarction. He underwent angioplasty with stenting of the right coronary artery. Patient also has approximate 70% lesion in the LAD. Echocardiogram with Doppler study was performed which revealed an ejection fraction of 55-60%. Patient has been up ambulating today, hemodynamically stable. Objective - Vital Signs Vital signs: Vital Signs Temp 97.7 F 07/30/16 08:00 Pulse 64 07/30/16 15:18 Resp 18 07/30/16 15:18 BP 126/69 07/30/16 15:18 Pulse Ox 94 L 07/30/16 15:18 Intake & Output 07/29/16 07/30/16 07/30/16 18:59 06:59 18:59 Intake Total 280 560 Balance 280 560 Weight 67.3 kg 72.6 kg Intake: Oral 280 560 Other: Voiding Method Toilet # Voids 1 1 2 - Exam PHYSICAL EXAMINATION: HEENT: Head is atraumatic, normocephalic. Pupils equal, round. Neck is supple. There is no elevated jugular venous pressure. HEART EXAMINATION: Heart S1, S2 normal. No murmur or gallop heard. CHEST EXAMINATION: Lungs are clear to auscultation and precussion. No chest wall tenderness is noted on palpation or with deep breathing. ABDOMEN: Soft, nontender. Bowel sounds are heard. No organomegaly noted. Right groin soft, no evidence of any hematoma. EXTREMITIES: 2+ peripheral pulses with no evidence of peripheral edema and no calf tenderness noted. NEUROLOGIC patient is awake, alert and oriented -3. . - Labs CBC & Chem 7: 07/29/16 09:34 07/29/16 09:34 Labs: Abnormal Lab Results - Last 24 Hours (Table) 07/29/16 07/29/16 07/30/16 Range/Units 16:37 20:38 06:16 POC Glucose (mg/dL) 245 H 231 H 242 H (75-99) mg/dL 07/30/16 Range/Units 12:02 POC Glucose (mg/dL) 217 H (75-99) mg/dL Assessment and Plan (1) ST elevation (STEMI) myocardial infarction involving right coronary artery Status: Acute (2) HTN (hypertension) Status: Acute (3) Hyperlipemia Status: Acute (4) Psychiatric disorder Status: Acute (5) Uncontrolled diabetes mellitus Status: Acute Plan: From cardiology's perspective, we'll recommend to continue aspirin, Lipitor, lisinopril, Effient 10 mg daily, metoprolol tartrate 25 mg one tablet by mouth twice a day. Plan for possible discharge home in 24 hours if stable. DNP note has been reviewed, I agree with a documented findings and plan of care. Patient was seen and examined.
[2016-07-30 16:56] LABS: Glucose,Whole Blood 215 mg/dL (75-99)
[2016-07-30 20:51] LABS: Glucose,Whole Blood 173 mg/dL (75-99)
[2016-07-30] MEDS: ATORVASTATIN 80 MG TAB PO SCH (20:56)
[2016-07-31 04:58] VITALS: RESP 16
[2016-07-31 05:51] LABS: Glucose,Whole Blood 259 mg/dL (75-99)
[2016-07-31] MEDS: INSULIN LISPRO (humaLOG) 300 UNIT/3 ML VIAL SQ SCH ×2 (06:33→13:00)
[2016-07-31] MEDS: ASPIRIN 325 MG TAB PO SCH (08:48)
[2016-07-31] MEDS: GABAPENTIN 300 MG CAP PO SCH (08:48)
[2016-07-31] MEDS: HYDROcodone/APAP 10-325MG 1 EACH TAB PO SCH (08:48)
[2016-07-31] MEDS: LISINOPRIL 10 MG TAB PO SCH (08:49)
[2016-07-31] MEDS: METOPROLOL TARTRATE 25 MG TAB PO SCH (08:50)
[2016-07-31] MEDS: PRASUGREL 10 MG TAB PO SCH (08:50)
--- NOTE | 2016-07-31 08:51 | P.PN ---
Subjective Principal diagnosis: STEMI This is a 56-year-old gentleman who presented to the hospital with an ST elevation myocardial infarction. He underwent angioplasty with stenting of the right coronary artery. Patient also has approximate 70% lesion in the LAD. Echocardiogram with Doppler study was performed which revealed an ejection fraction of 55-60%. Patient has been up ambulating today, hemodynamically stable. Patient seen and examined this morning, up ambulating in the hallway without any difficulty. Denies any chest pain or difficulty in breathing. No arrhythmias noted on the monitor. Objective - Vital Signs Vital signs: Vital Signs Temp 97.6 F 07/31/16 07:45 Pulse 81 07/31/16 07:45 Resp 16 07/31/16 07:45 BP 135/92 07/31/16 07:45 Pulse Ox 99 07/31/16 07:45 Intake & Output 07/30/16 07/31/16 07/31/16 18:59 06:59 18:59 Intake Total 560 Balance 560 Weight 72.3 kg Intake: Oral 560 Other: Voiding Method Toilet # Voids 2 1 - Exam PHYSICAL EXAMINATION: HEENT: Head is atraumatic, normocephalic. Pupils equal, round. Neck is supple. There is no elevated jugular venous pressure. HEART EXAMINATION: Heart S1, S2 normal. No murmur or gallop heard. CHEST EXAMINATION: Lungs are clear to auscultation and precussion. No chest wall tenderness is noted on palpation or with deep breathing. ABDOMEN: Soft, nontender. Bowel sounds are heard. No organomegaly noted. Right groin soft, no evidence of any hematoma. EXTREMITIES: 2+ peripheral pulses with no evidence of peripheral edema and no calf tenderness noted. NEUROLOGIC patient is awake, alert and oriented -3. . - Labs CBC & Chem 7: 07/29/16 09:34 07/29/16 09:34 Labs: Abnormal Lab Results - Last 24 Hours (Table) 07/30/16 07/30/16 07/30/16 Range/Units 12:02 16:53 20:50 POC Glucose (mg/dL) 217 H 215 H 173 H (75-99) mg/dL 07/31/16 Range/Units 05:49 POC Glucose (mg/dL) 259 H (75-99) mg/dL Assessment and Plan (1) ST elevation (STEMI) myocardial infarction involving right coronary artery Status: Acute (2) HTN (hypertension) Status: Acute (3) Hyperlipemia Status: Acute (4) Psychiatric disorder Status: Acute (5) Uncontrolled diabetes mellitus Status: Acute Plan: From cardiology's perspective, we'll recommend to continue aspirin, Lipitor, lisinopril, Effient 10 mg daily, metoprolol tartrate 25 mg one tablet by mouth twice a day. Patient may be able to be discharged home today. We'll make him a follow-up appointment to see Dr. Garduno in the office post discharge. Patient has been educated regarding all of his medications and the importance of taking them on a regular basis. DNP note has been reviewed, I agree with a documented findings and plan of care. Patient was seen and examined.
[2016-07-31 11:35] VITALS: PULSE 65; TEMP 97.3
[2016-07-31 12:12] LABS: Glucose,Whole Blood 275 mg/dL (75-99)
[2016-07-31 13:34] VITALS: BP 112/61
--- NOTE | 2016-08-28 12:51 | DS ---
DATE OF ADMISSION: 07/28/2016 DATE OF DISCHARGE: 07/31/2016 DISCHARGE DIAGNOSES: 1. Acute inferior myocardial infarction. 2. Status post cardiac catheterization and stent placement. 3. Acute total occlusion of right proximal coronary artery. 4. Severe coronary artery disease in the proximal left anterior descending artery. 5. Diabetes mellitus type 2. The patient is refusing to take any medicine for diabetes. 6. Chronic pain syndrome with low back pain. 7. Psychiatric disorder with agitation. This is a 56-year-old white male who started having chest pain radiating to the left neck and left arm. Patient was brought to the emergency room. In the ER, he was found to have acute anterior myocardial infarction and [facility] was consulted. Patient was taken to cardiac catheterization and was found to have a total occlusion of the inferior proximal right coronary artery and stent placement was done and patient was admitted to the hospital for further evaluation and treatment. For details of the physical examination at the time of admission, please refer to the history and physical. HOSPITAL COURSE: The patient was followed by a circle beveler in the hospital and his diabetes was controlled with NovoLog sliding scale, but the patient refused to take any medication for diabetes or hyperlipidemia when discharged. Patient's overall cardiac status is being stable and he was then discharged home on 07/31/2016 and he was advised to continue on: 1. Aspirin 325 mg p.o. daily. 2. Lipitor 80 mg p.o. daily. 3. Lisinopril 10 mg p.o. daily. 4. Metoprolol 25 mg b.i.d. 5. Nitroglycerin sublingual p.r.n. 6. Effient 10 mg daily. 7. He was also advised to continue on gabapentin 100 mg t.i.d. and 8. [place] 10/325, 1 q.8 hours p.r.n. Even though the patient does refuse to take any of these medication when discharged, he was advised to continue on these medications and prescription for these medications given. He will be seen in my office for followup in a week's time and he will also be following with Cardiology.
== END 2016-07-31 14:24 | disposition home or self-care (01) | DRG 247 ==
LOC: EC 00:09 → 6ICU 00:33 → 6SEL 07-29 02:34
PROVIDERS: ADMIT Internal Medicine; ATTEND Internal Medicine
PROC: B2151ZZ Fluoroscopy of Left Heart using Low Osmolar Contrast (ICD-10-PCS; principal; 2016-07-28 00:47)
PROC: B2111ZZ Fluoroscopy of Multiple Coronary Arteries using Low Osmolar Contrast (ICD-10-PCS; principal; 2016-07-28 00:47)
PROC: 027034Z Dilation of Coronary Artery, One Artery with Drug-eluting Intraluminal Device, Percutaneous Approach (ICD-10-PCS; principal; 2016-07-28 00:47)
PROC: 4A023N7 Measurement of Cardiac Sampling and Pressure, Left Heart, Percutaneous Approach (ICD-10-PCS; principal; 2016-07-28 00:47)
DX: I21.19 ST elevation (STEMI) myocardial infarction involving other coronary artery of inferior wall (principal); E11.65 Type 2 diabetes mellitus with hyperglycemia; I25.82 Chronic total occlusion of coronary artery; K76.0 Fatty (change of) liver, not elsewhere classified; J98.11 Atelectasis; E78.5 Hyperlipidemia, unspecified; F12.90 Cannabis use, unspecified, uncomplicated; F17.200 Nicotine dependence, unspecified, uncomplicated; F25.9 Schizoaffective disorder, unspecified; F43.20 Adjustment disorder, unspecified; F60.9 Personality disorder, unspecified; G89.4 Chronic pain syndrome; I10 Essential (primary) hypertension; I25.10 Atherosclerotic heart disease of native coronary artery without angina pectoris; Z79.899 Other long term (current) drug therapy
CPT/HCPCS: 36415; 71010; 76700; 80053; 80061; 80074; 82550; 82553; 83036; 83721; 83735; 84484; 85025; 85610; 85730; 93005; 93306; 96361; 96374; 99291

== ENCOUNTER 2016-09-17 06:36 | Day surgery (SDC) | payer OTHER ==
[2016-09-12 16:17] VITALS: BMI 25.8
[~2016-09-17 06:36] MED LIST: ALPRAZolam 0.25 MG TAB PO PRN; ALPRAZolam 0.5 MG TAB PO PRN; ASPIRIN 325 MG TAB PO STA; ATORVASTATIN 80 MG TAB PO STA; NITROGLYCERIN SL TABS 0.4 MG TAB SUBLINGUAL PRN; SODIUM CHLORIDE 0.9% 1,000 ML in EMPTY BAG 1 BAG IV ONE
[2016-09-17 07:33] LABS: Basophils % (A) 1 %; CH 33.7; CHCM 35.6; Eosinophils # (A) 0.2 k/uL (0-0.7); Eosinophils % (A) 2 %; HCT 44.4 % (39.0-53.0); HDW 2.62; HGB 15.4 gm/dL (13.0-17.5); Luc # (Auto) 0.22; Luc % (Auto) 2; Lymphocytes # (A) 3.1 k/uL (1.0-4.8); Lymphocytes % (A) 33 %; MCH 32.9 pg (25.0-35.0); MCHC 34.6 g/dL (31.0-37.0); MCV 95.1 fL (80.0-100.0); Mean Platelet Volume 9.1; Monocytes # (A) 0.6 k/uL (0-1.0); Monocytes % (A) 6 %; Neutrophils # (A) 5.3 k/uL (1.3-7.7); Neutrophils % (A) 57 %; RBC 4.67 m/uL (4.30-5.90); RDW 13.1 % (11.5-15.5); WBC 9.4 k/uL (3.8-10.6); WBC (Perox) 8.83
[2016-09-17 07:47] LABS: Anion Gap 5 mmol/L; Blood Urea Nitrogen 21 mg/dL (9-20); Carbon Dioxide 29 mmol/L (22-30); Chloride 106 mmol/L (98-107); Glucose 232 mg/dL (74-99); Non-African American GFR(MDRD) >60 (>60 ml/min/1.73 sqM); Sodium 140 mmol/L (137-145)
[2016-09-17] MEDS ORDERED: MIDAZOLAM 2 MG/2 ML VIAL IVP ONE (07:50)
[2016-09-17] MEDS ORDERED: LIDOCAINE 2% INJ 20 MG/ML SQ ONE (07:52)
[2016-09-17] MEDS ORDERED: BIVALIRUDIN BOLUS 250 MG/50 ML IV ONE (07:57)
[2016-09-17] MEDS ORDERED: BIVALIRUDIN 250 MG in SODIUM CHLORIDE 0.9% 50 ML IV ONE (07:58)
[2016-09-17] MEDS ORDERED: NITROGLYCERIN 1000MCG/10ML SYRINGE INTRACORON ONE (08:10)
[2016-09-17] MEDS ORDERED: IOHEXOL 350 MG/ML 125ML BOTTLE INJ ONE (08:13)
[2016-09-17] MEDS ORDERED: NITROGLYCERIN SL TABS 0.4 MG TAB SUBLINGUAL PRN ×2 (08:30→08:31)
[2016-09-17] MEDS ORDERED: ATROPINE SULFATE 0.1 MG/ML 10ML SYRINGE IV PRN (08:31)
[2016-09-17] MEDS ORDERED: MAG HYDROX/AL HYDROX/SIMETH 30 ML CUP PO PRN (08:31)
[2016-09-17] MEDS ORDERED: ZOLPIDEM 5 MG TAB PO PRN (08:31)
[2016-09-17] MEDS ORDERED: RX INFO: IV CONTRAST WAS GIVEN 1 EACH MISC MISCELLANE PRN (08:31)
[2016-09-17] MEDS ORDERED: SODIUM CHLORIDE 0.9% 1,000 ML IV SCH (08:45)
[2016-09-17] MEDS ORDERED: PRASUGREL 10 MG TAB PO SCH (09:00)
[2016-09-17] MEDS ORDERED: METOPROLOL TARTRATE 25 MG TAB PO SCH (09:00)
[2016-09-17] MEDS ORDERED: LISINOPRIL 10 MG TAB PO SCH (09:00)
--- NOTE | 2016-09-17 10:33 | CC ---
DATE OF SERVICE: 09/17/2016 PERFORMING PHYSICIAN: James Tucker MD, retirement village manager. PROCEDURE PERFORMED: 1. Selective right and left coronary angiogram. 2. Left heart catheterization. 3. Left ventriculography. 4. Successful stenting of the mid left anterior descending artery using 2.75 x 15 mm Xience MARIA DEL ROSARIO with a good angiographic result. 5. Selective right common femoral artery angiogram. INDICATION: This is a pleasant 56-year-old gentleman who presented to the hospital a few weeks ago with acute inferior ST elevation myocardial infarction and underwent successful stenting of the RCA and was found to have severe lesion involving the mid LAD and was brought today to undergo stenting of the LAD. APPROACH: Right common femoral artery. COMPLICATIONS: None. LEVEL OF SEDATION: Moderate with sedation length of 40 minutes. PROCEDURE DESCRIPTION: After obtaining an informed consent, the patient was brought to the cardiac cathode washer. The right common femoral artery was cannulated using micropuncture technique. The micropuncture wire passed easily, then I placed 6 Chinese sheath in the right common femoral artery. Subsequently, I did selective right and left coronary angiogram using JR4 and [id number]. After that, I did a left heart catheterization and subsequently left ventriculography using a 6 Chinese pigtail catheter. After that, I did the pullback across the aortic valve. After that, I did intervene on the LAD, please see a separate paragraph for that. SELECTIVE CORONARY ANGIOGRAM: 1. The right coronary artery is a large-caliber vessel and it is a dominant vessel. The proximal right coronary artery is stented and the stent is patent. The mid RCA right after the bifurcation of the acute marginal branch has a lesion that seems to be in the range of 50%. The RCA distally appeared to be angiographically normal and bifurcates into PDA and PLV branches; both are angiographically normal. 2. The left main is angiographically normal. It bifurcates into the left circumflex and left anterior descending artery. 3. The left circumflex is a large-caliber vessel and it is a nondominant vessel. The left circumflex appeared to have mild disease only. 4. The left anterior descending artery: The proximal left anterior descending artery appeared to be angiographically normal. The mid LAD appeared to have a lesion in the range of 70% between 2 septal body shop supervisor branches. The LAD distally appeared to have mild disease only. The LAD gives rise into multiple small diagonal branches. HEMODYNAMICS: The left ventricular end-diastolic pressure was 24 mmHg and no gradient was identified across the aortic valve. Left ventriculography was performed in the MARLEY projection and using a power injection. The left ventricular systolic function seems to be mildly impaired with an ejection fraction between 45% to 50% with mid inferior wall hypokinesia. PCI OF THE LAD: Anticoagulation was initiated using Angiomax. Subsequently, I took JL4 guiding catheter, and the left main was engaged. A whisper wire was used to wire the LAD. Subsequently, I did direct stenting on the lesion using 2.75 x 15 mm Xience MARIA DEL ROSARIO, where the stent was positioned under fluoroscopy guidance and it was deployed under 18 atmospheres for 30 seconds. The following angiogram showed good angiographic results and the procedure was completed without any complication. CONCLUSION: 1. Patent stent in the proximal right coronary artery. 2. Intermediate residual disease involving the mid RCA appeared to be in the range of 60%. 3. Severe disease involving the mid left anterior descending artery. 4. Successful stenting of the mid left anterior descending artery using 2.75 x 15 mm Xience MARIA DEL ROSARIO with a good angiographic result. 5. Mild disease involving the left circumflex. 6. Mildly impaired left ventricular function. POSTPROCEDURE MANAGEMENT: 1. Maximize medical treatment. 2. Down the line, a stress test to evaluate for ischemia in the inferior wall related to the residual disease involving the mid RCA. 3. Follow up with the patient.
[2016-09-17] MEDS: GABAPENTIN 300 MG CAP PO SCH ×3 (12:15→15:16)
[2016-09-17] MEDS: HYDROcodone/APAP 10-325MG 1 EACH TAB PO SCH ×2 (12:20→15:16)
--- NOTE | 2016-09-17 17:57 | CONS ---
DATE OF CONSULTATION: This is a 56-year-old white male who was recently in [facility] with acute inferior non-ST elevation myocardial infarction and he underwent stent placement of right coronary artery. At that time, he was also found to have severe lesion involving the left anterior descending artery. Patient was being followed by Dr. Tucker. The patient was brought to the hospital today for stent placing of LAD. The patient had a selective coronary angiogram, and left heart catheterization and successful stenting of mid left anterior descending artery. Patient was admitted to hospital postoperatively for further management. I have been asked to see the patient for postoperative medical management. Patient is known to have a long-standing history of diabetes mellitus, which has been greatly uncontrolled because patient refused always to have medications for diabetes. Patient is very compliant with regards to taking medications and following the diet instructions. He also has a history of bipolar disorder and he has been in the mental health unit multiple times. Patient also has history of having followed in [facility] and he discontinued going there and has not been following with a psychiatrist. He also has a history of chronic low back pain and he is currently receiving [place] from Dr. Sánchze. He has no known drug allergies. REVIEW OF SYSTEMS: Patient denies any headache. Appetite has been poor lately. He has had chest pain in the past and has a history of myocardial infarction in the past and also he has no cough. He has no abdominal pain. He has no polyuria or dysuria. He has no neurological symptoms. FAMILY HISTORY: Detailed history is not obtainable from the patient as the patient is very vague in his responses. Physical examination reveals a 56-year-old white male, he is still ( ) not clear in his answers and he is oriented. There is no jaundice. There is no generalized lymphadenopathy. There are no petechiae or bruises. Pulse 70 per minute, regular. Blood pressure 134/76. Examination of the ENT negative. Neck is supple. There is no jugular venous distention. There is no goiter. There is no carotid bruit. Heart is in sinus rhythm. Lungs are clear to auscultation and percussion. ABDOMEN: Soft and nontender. There is no mass palpable. Examination of the lower extremities reveal no pitting edema. Neurologic examination does not reveal any localizing signs. His CBC is within normal limits with a WBC of 9.4, hemoglobin 15.4 and platelet count 129,000. Sodium 140, potassium 4, BUN 21, creatinine 1.03. His blood sugar is markedly elevated which is 232. IMPRESSION: 1. Coronary artery disease, status post cardiac catheterization and coronary angiogram, and stent placement in the mid left anterior descending coronary artery. 2. Diabetes mellitus. 3. Bipolar disorder. 4. Low back pain. RECOMMENDATION: Patient will be placed on NovoLog sliding scale. This was discussed with the patient, but he is refusing to have any insulin or any Accu-Cheks and he refused to have any treatment for diabetes. Thank you for asking me to see this patient in consultation. His vital signs seem to be stable. There are no acute cardiorespiratory problems now. The patient may be discharged home when it is okay with Dr. Tucker. The patient will follow up with me for his medical problems as an outpatient.
[2016-09-17 18:30] VITALS: RESP 18
[2016-09-17 18:40] VITALS: BP 125/75; PULSE 65; TEMP 97.1
[2016-09-18] MEDS ORDERED: ASPIRIN 325 MG TAB PO SCH (09:00)
[2016-09-18] MEDS ORDERED: ATORVASTATIN 80 MG TAB PO SCH (21:00)
== END 2016-09-17 20:30 | disposition left against medical advice (07) ==
LOC: CATHCVL 06:36 → 6SEL 08:30 → CATHCVL 20:30
PROVIDERS: ATTEND Internal Medicine Interventional Cardiology
DX: I25.119 Atherosclerotic heart disease of native coronary artery with unspecified angina pectoris (principal); E11.9 Type 2 diabetes mellitus without complications; I10 Essential (primary) hypertension; E78.5 Hyperlipidemia, unspecified; F17.210 Nicotine dependence, cigarettes, uncomplicated; E66.3 Overweight; M54.5 Low back pain; G89.29 Other chronic pain; F31.9 Bipolar disorder, unspecified; I25.2 Old myocardial infarction; Z68.26 Body mass index [BMI] 26.0-26.9, adult; Z79.82 Long term (current) use of aspirin; Z79.899 Other long term (current) drug therapy
CPT/HCPCS: 93458; 80048; 85025; 99152; 99153 ×2; C9600; C1769 ×4; C1887; C1894; C1874; J2001; J2250; J0583; Q9967

== ENCOUNTER → 2019-03-29 | Outpatient (CLI) | payer OTHER ==
[2019-03-29 16:41] LABS: Basophils % (A) 1 %; Eosinophils # (A) 0.1 k/uL (0-0.7); Eosinophils % (A) 2 %; HCT 48.2 % (39.0-53.0); Lymphocytes # (A) 1.9 k/uL (1.0-4.8); Lymphocytes % (A) 33 %; MCH 31.5 pg (25.0-35.0); MCHC 33.2 g/dL (31.0-37.0); MCV 95.1 fL (80.0-100.0); Mean Platelet Volume 9.1; Monocytes # (A) 0.5 k/uL (0-1.0); Monocytes % (A) 8 %; Neutrophils # (A) 3.1 k/uL (1.3-7.7); Neutrophils % (A) 54 %; Platelet Count 145 k/uL (150-450); RBC 5.07 m/uL (4.30-5.90); RDW 12.5 % (11.5-15.5); WBC 5.8 k/uL (3.8-10.6)
[2019-03-30 02:54] LABS: Hemoglobin A1C 9.7 % (4.0-6.0)
[2019-03-30 04:12] LABS: African American GFR (CKD) 86.5 (60.0-200.0); Albumin 4.2 g/dL (3.80-4.90); Albumin/Globulin Ratio 2.1 (1.60-3.17); Anion Gap 8.9 mmol/L (4.00-12.00); BUN/Creat Ratio 15.45 Ratio (12.00-20.00); Calcium 9.5 mg/dL (8.7-10.3); Carbon Dioxide 26.1 mmol/L (21.6-31.8); Non-African American GFR(CKD) 74.6 (60.0-200.0); Potassium 4.5 mmol/L (3.5-5.5); Total Bilirubin 0.4 mg/dL (0.3-1.2); Total Protein 6.2 g/dL (6.2-8.2)
== END | disposition home or self-care (01) ==
LOC: LABWHC1 15:43
PROVIDERS: ATTEND Psychiatry & Neurology Psychiatry
DX: F40.10 Social phobia, unspecified (principal)
CPT/HCPCS: 36415; 80053; 83036; 84439; 84443; 85025

== ENCOUNTER 2019-08-29 22:17 | Emergency (ER) | payer OTHER ==
--- NOTE | 2019-08-29 23:00 | ED ---
Skin/Abscess/FB HPI - General Chief complaint: Skin/Abscess/Foreign Body Stated complaint: Cyst on buttock Time Seen by Provider: 08/29/19 22:52 Source: patient Mode of arrival: ambulatory Limitations: no limitations - History of Present Illness Initial comments: Patient is 59-year-old male presenting to emergency Department with chief complaint of cyst on the buttocks. States this started about one week ago. Patient states he saw his primary care physician who started him on amoxicillin. Patient reports there is no improvement of symptoms. Patient reports the cyst continues to grow and now he has difficulty sitting in a chair. Patient denies any night sweats fever or chills. Patient does have history of pilonidal cyst but they have never been this big. Denies nausea vomiting diarrhea. - Related Data Home Medications Medication Instructions Recorded Confirmed HYDROcodone/APAP 10-325MG [[place] 1 tab PO TID 04/02/14 09/17/16 10] Gabapentin 300 mg PO TID 06/06/15 09/17/16 Previous Rx's Medication Instructions Recorded Aspirin 325 mg PO DAILY #30 tab 07/31/16 Atorvastatin [Lipitor] 80 mg PO HS #30 tab 07/31/16 Lisinopril [Zestril] 10 mg PO DAILY #30 tab 07/31/16 Metoprolol Tartrate [Lopressor] 25 mg PO BID #60 tab 07/31/16 Nitroglycerin Sl Tabs [Nitrostat] 0.4 mg SUBLINGUAL Q5M PRN #25 tab 07/31/16 Prasugrel [Effient] 10 mg PO DAILY #30 tab 07/31/16 Sulfamethox-Tmp 800-160Mg [Bactrim 1 each PO Q12HR #20 tab 08/29/19 Ds] Allergies Allergy/AdvReac Type Severity Reaction Status Date / Time No Known Allergies Allergy Verified 08/29/19 22:49 Review of Systems ROS Statement: Those systems with pertinent positive or pertinent negative responses have been documented in the HPI. ROS Other: All systems not noted in ROS Statement are negative. Past Medical History Past Medical History: Chest Pain / Angina, Diabetes Mellitus, Myocardial Infarction ([place]) Additional Past Medical History / Comment(s): diverticulitis, constipation, freq urination,sob,general chronic pain Last Myocardial Infarction Date:: 07-28-16 History of Any Multi-Drug Resistant Organisms: None Reported Past Surgical History: Heart Catheterization With Stent, Orthopedic Surgery Additional Past Surgical History / Comment(s): colonoscopy,eye,rt knee, 5 surg to lt ear Past Anesthesia/Blood Transfusion Reactions: Motion Sickness Date of Last Stent Placement:: 07-28-16 Past Psychological History: Bipolar, Depression, Schizophrenia Smoking Status: Current every day smoker Past Alcohol Use History: None Reported Past Drug Use History: Marijuana - Past Family History Mother History Unknown: Yes Father History Unknown: Yes General Exam Limitations: no limitations General appearance: alert, in no apparent distress Head exam: Present: atraumatic, normocephalic, normal inspection Eye exam: Present: normal appearance, PERRL, EOMI Pupils: Present: normal accommodation ENT exam: Present: normal exam, mucous membranes moist Neck exam: Present: normal inspection, full ROM Respiratory exam: Present: normal lung sounds bilaterally Cardiovascular Exam: Present: regular rate, normal rhythm, normal heart sounds Rectal exam: Present: other (Pilonidal cyst measuring approximately 5 cm in diameter with 6 a minute induration. No active drainage at this time.) Extremities exam: Present: normal inspection, full ROM Back exam: Present: normal inspection, full ROM Neurological exam: Present: alert, oriented X3 Psychiatric exam: Present: normal affect, normal mood Skin exam: Present: warm, dry, intact, normal color Course Vital Signs 08/29/19 08/30/19 22:44 00:17 Temperature 99.1 F 98.4 F Pulse Rate 91 72 Respiratory 18 16 Rate Blood Pressure 130/76 O2 Sat by Pulse 99 97 Oximetry Procedures - Incision & Drainage Consent Obtained: verbal consent Indication: abscess Site: other (Pilonidal cyst) Size (cm): 5 Anesthetic Used: lidocaine 1%, with epi Amount (mLs): 5 I&D Cleaning Method: Alcohol Wipe Sterile Field Used?: No Scalpel Used: #11 Needle Aspiration Performed?: No Irrigation Performed?: No I&D Drainage Obtained: Pus, Blood Culture Obtained?: No Complications: pain, bleeding Patient Tolerated Procedure: well, no complications Medical Decision Making - Medical Decision Making Patient is a 59-year-old male presenting to emergency with chief complaint of cyst. Exam patient does appear to have parenteral cyst measuring approximately 5 cm in diameter with 6-7 cm of induration. Some fluctuance noted. I performed incision and drainage and was able to get moderate amounts of pus with blood. I gave patient a single dose of Bactrim in the ED. He will be discharged with a 10 day course of Bactrim. Patient advised on wound care. She was also advised to take warm Epson salt baths. Return parameters were thoroughly discussed with patient was understanding and agreeable. Case discussed with physician. - EKG Data EKG Comments: No ST or T-wave changes. Sinus rhythm Ventricular rate 69, WI 118, QRS 76, QTc 424. Disposition Clinical Impression: Pilonidal cyst with abscess Disposition: HOME SELF-CARE Condition: Stable Instructions (If sedation given, give patient instructions): Abscess (ED) Additional Instructions: Take prescribed medication as directed. Use Epsom salts. Return to emergency department if symptoms worsen. Prescriptions: Sulfamethox-Tmp 800-160Mg [Bactrim Ds] 1 each PO Q12HR #20 tab Is patient prescribed a controlled substance at d/c from ED?: No Referrals: Tristan Avina MD [Primary Care Provider] - 1-2 days Shmuel Harrell MD [Medical Doctor] - 1-2 days Time of Disposition: 00:15
[2019-08-29] MEDS ORDERED: SULFAMETHOX-TMP 800-160MG 1 EACH TAB PO STA (23:21)
[2019-08-29] MEDS ORDERED: LIDOCAINE 1%-EPI 1:100,000 20 ML VIAL SQ STA (23:21)
[2019-08-30 00:20] VITALS: BP 130/76; PULSE 72; RESP 16; TEMP 98.4
== END 2019-08-30 00:20 | disposition home or self-care (01) ==
LOC: EC 22:17
DX: L05.01 Pilonidal cyst with abscess (principal); I25.2 Old myocardial infarction; G89.29 Other chronic pain; F17.200 Nicotine dependence, unspecified, uncomplicated; Z79.891 Long term (current) use of opiate analgesic; Z79.899 Other long term (current) drug therapy; Z95.5 Presence of coronary angioplasty implant and graft
CPT/HCPCS: 10080; 99282

== ENCOUNTER 2019-09-30 14:05 | Day surgery (SDC) | payer OTHER ==
[2019-09-30 14:37] LABS: Basophils # (A) 0.1 k/uL (0-0.2); Basophils % (A) 1 %; Eosinophils # (A) 0.2 k/uL (0-0.7); Eosinophils % (A) 3 %; HCT 43.2 % (39.0-53.0); HGB 14.5 gm/dL (13.0-17.5); Lymphocytes # (A) 2.9 k/uL (1.0-4.8); Lymphocytes % (A) 42 %; MCH 32.1 pg (25.0-35.0); MCHC 33.6 g/dL (31.0-37.0); MCV 95.5 fL (80.0-100.0); Mean Platelet Volume 9.7; Monocytes # (A) 0.4 k/uL (0-1.0); Monocytes % (A) 6 %; Neutrophils # (A) 3.2 k/uL (1.3-7.7); Neutrophils % (A) 46 %; Platelet Count 144 k/uL (150-450); RBC 4.52 m/uL (4.30-5.90); RDW 13.2 % (11.5-15.5); WBC 6.9 k/uL (3.8-10.6)
[2019-09-30] MEDS ORDERED: SODIUM CHLORIDE 0.9% 1,000 ML IV ONE (14:45)
[2019-09-30 14:50] LABS: African American GFR (CKD) >90 (>60 ml/min/1.73 sqM); Anion Gap 3 mmol/L; Blood Urea Nitrogen 14 mg/dL (9-20); Carbon Dioxide 30 mmol/L (22-30); Chloride 104 mmol/L (98-107); Glucose 190 mg/dL (74-99); Non-African American GFR(CKD) >90 (>60 ml/min/1.73 sqM); Potassium 4.1 mmol/L (3.5-5.1); Sodium 137 mmol/L (137-145)
[2019-09-30] MEDS ORDERED: LIDOCAINE 1% INJ 10MG/ML (20 ML MDV) ONE (17:09)
[2019-09-30] MEDS ORDERED: VERAPAMIL 2.5 MG/ML 2 ML AMP ONE (17:13)
[2019-09-30] MEDS ORDERED: MIDAZOLAM 2 MG/2 ML VIAL IVP ONE (17:34)
[2019-09-30] MEDS ORDERED: LIDOCAINE 1% INJ 10MG/ML (20 ML MDV) SQ ONE (17:34)
[2019-09-30] MEDS ORDERED: HYDROmorphone 1 MG/ML 1 ML SYRINGE IVP ONE (17:39)
[2019-09-30] MEDS ORDERED: HYDROmorphone 1 MG/ML 1 ML SYRINGE ONE (17:45)
[2019-09-30] MEDS ORDERED: BIVALIRUDIN BOLUS 250 MG/50 ML IV ONE (17:55)
[2019-09-30] MEDS ORDERED: BIVALIRUDIN 250 MG in SODIUM CHLORIDE 0.9% 50 ML IV ONE (17:55)
[2019-09-30] MEDS ORDERED: NITROGLYCERIN 1000MCG/10ML SYRINGE INTRACORON ONE (18:08)
[2019-09-30] MEDS ORDERED: IOPAMIDOL-370 125ML BTL INJ ONE (18:13)
[2019-09-30] MEDS ORDERED: CLOPIDOGREL 75 MG TAB ONE (18:16)
[2019-09-30] MEDS ORDERED: ATROPINE SULFATE 0.1 MG/ML 10ML SYRINGE IV PRN (18:30)
[2019-09-30] MEDS ORDERED: SODIUM CHLORIDE 0.9% 1,000 ML IV SCH (18:30)
[2019-09-30] MEDS ORDERED: MAG HYDROX/AL HYDROX/SIMETH 30 ML CUP PO PRN (18:30)
[2019-09-30] MEDS ORDERED: RX INFO: IV CONTRAST WAS GIVEN 1 EACH MISC MISCELLANE PRN (18:30)
[2019-09-30] MEDS ORDERED: ZOLPIDEM 5 MG TAB PO PRN (18:30)
[2019-09-30] MEDS ORDERED: NITROGLYCERIN SL TABS 0.4 MG TAB SUBLINGUAL PRN ×2 (18:30)
[2019-09-30 19:00] LABS: Glucose,Whole Blood 139 mg/dL (75-99)
--- NOTE | 2019-09-30 19:00 | CC ---
CARDIAC CATHETERIZATION REPORT DATE OF PROCEDURE: 09/30/2019 PERFORMING PHYSICIAN: James Tucker M.D. PROCEDURES PERFORMED: 1. Selective right and left coronary angiogram. 2. Left heart catheterization. 3. Successful balloon angioplasty of the proximal right coronary artery using a 2.5 x 12 mm AngioSculpt balloon with excellent angiographic results and reduction of stenosis from 70% to 0%. INDICATION: This is a 59-year-old gentleman with coronary artery disease and prior stenting of the RCA as well as LAD and also history of hypertension and dyslipidemia who unfortunately continues to smoke and unfortunately was noncompliant. He was last seen in the office in 2017 and since then he never was seen. In 2017 he underwent stenting of the RCA and LAD in the setting of acute coronary event. Since then he stopped taking all his medication. He presented to the hospital yesterday with chest discomfort with exertion, especially when he bikes. He was not on any anti-ischemic medications. I started the patient on aspirin as well as metoprolol as well as isosorbide mononitrate and scheduled the patient to undergo a heart catheterization. APPROACH: Right common femoral artery. COMPLICATIONS: None. LEVEL OF SEDATION: Moderate, with sedation length of 43 minutes. PROCEDURE DESCRIPTION: After obtaining informed consent, the patient was brought to the cardiac woods laborer. The right common femoral artery was cannulated using micropuncture technique. The micropuncture wire passed easily. Then I placed a 6-[place] sheath 11 cm at the right common femoral artery. Subsequently I did selective right and left coronary angiogram. Selective right coronary angiogram was performed using JR3.5 catheters. Selective left coronary angiogram was performed using JL3.5 catheter. After that I did intervene on the right coronary artery. Please see separate paragraph for that. Then I did left heart catheterization using a 6-[place] pigtail catheter. The procedure was completed without any complication. SELECTIVE CORONARY ANGIOGRAM: 1. The RCA is stented in the ostial/proximal portion with severe in-stent restenosis. The mid RCA has intermediate lesion that appeared to be in the range of 60%. The RCA distally has mild disease only and bifurcates into PDA and PLV branches. The PDA branch has a tight lesion, but the artery is less than 2 mm in diameter and the PLV branch appeared to have mild disease only. 2. The left main is angiographically normal. It bifurcates into LCX and LAD. 3. The LCX is a large-caliber vessel. It is a nondominant vessel. The LCX appeared to have mild disease only. In the very proximal portion it gives rise to first OM branch, which appeared to be angiographically normal. The mid left circumflex appeared to be normal and gives rise to a second diagonal branch which bifurcates into two subbranches. Both appeared to be angiographically normal before the circumflex continues as a medium-caliber vessel in the AV groove. 4. The LAD. The proximal LAD appeared to be stented and the stent is patent. The proximal LAD gives rise to the first diagonal branch which as ramus intermedius which has a tight area that appeared to be in the range of 80%, but the artery also is smaller than 2 mm in diameter. The mid LAD and distal LAD appeared to have mild disease only. 5. HEMODYNAMICS: The LVEDP was 4-6 mmHg without significant gradient across the aortic valve. PERCUTANEOUS CORONARY INTERVENTION OF THE RIGHT CORONARY ARTERY: Anticoagulation was initiated using Angiomax. Subsequently I did engage the RCA using a JL3.5 with a side hole. I did wire it using a run-through wire. Balloon angioplasty was performed using a 2.5 x 12 mm AngioSculpt balloon where I did 6 times PTCA of the ostial and proximal RCA. The following angiogram showed good angiographic results and the procedure at that point was completed without any complication. CONCLUSIONS: 1. Severe in-stent restenosis involving the ostial RCA. Intermediate to severe de Theresa lesion involving the mid RCA. Severe disease involving the PDA branch of the RCA, which is a medium-caliber vessel, less than 2 mm in diameter. 2. Normal left main coronary artery. 3. Mild disease involving the left circumflex coronary system. 4. Patent stent in the proximal LAD. Severe disease involving the first diagonal branch of the LAD which is also a medium-caliber vessel and less than 2 mm in diameter. 5. Successful balloon angioplasty of the RCA using a 2.5 x 12 mm AngioSculpt balloon with excellent angiographic results and reduction of stenosis from 70% to 0%. POST-PROCEDURE MANAGEMENT: 1. Dual anti-platelet therapy. 2. Risk factor modifications. 3. Follow up with the patient. MMODL / IJN: [id number] /
[2019-09-30] MEDS ORDERED: ATORVASTATIN 80 MG TAB PO SCH (21:00)
[2019-09-30] MEDS: HYDROcodone/APAP 10-325MG 1 EACH TAB PO SCH (21:47)
[2019-09-30] MEDS: GABAPENTIN 300 MG CAP PO SCH (21:47)
[2019-09-30] MEDS: METOPROLOL TARTRATE 25 MG TAB PO SCH (21:47)
[2019-10-01 07:30] VITALS: BP 191/91; PULSE 61; RESP 18; TEMP 98.2
[2019-10-01] MEDS: GABAPENTIN 300 MG CAP PO SCH (07:30)
[2019-10-01] MEDS: METOPROLOL TARTRATE 25 MG TAB PO SCH (07:30)
[2019-10-01] MEDS ORDERED: LISINOPRIL 10 MG TAB PO SCH (09:00)
[2019-10-01] MEDS ORDERED: CLOPIDOGREL 75 MG TAB PO SCH (09:00)
[2019-10-01] MEDS ORDERED: ASPIRIN 325 MG TAB PO SCH (09:00)
[2019-10-01] MEDS: HYDROcodone/APAP 10-325MG 1 EACH TAB PO SCH (09:02)
--- NOTE | 2019-10-01 09:40 | P.DS ---
Providers Date of admission: 09/30/2019 Attending physician: James Tucker Consults: 09/30/19 18:30 Consult Physician Routine Consulting Provider: [facility] Consult Reason/Comments: Post Interventional patient Do you want consulting provider notified?: Already Contacted Primary care physician: Stated None Hospital Course: This is a 59-year-old gentleman who underwent yesterday successful balloon angioplasty of the ostial right coronary artery with a good angiographic results. He was experiencing symptoms of chest discomfort with exertion concerning for angina. He is known to have coronary artery disease and prior stenting of the LAD and RCA in 2017 but he did not have any follow-up since 2017. He stopped taking all his medications including antiplatelet as well as anti-ischemic medications. I performed yesterday successful balloon angioplasty of the right coronary artery with a good angiographic results and without any complication. I did not stent the right coronary artery just because I am not sure how compliant the patient in taking his dual antiplatelet therapy and also we achieved good angiographic results with plain angioplasty only. He was seen this morning. The right groin is soft and nontender and without any bruises. I had a long discussion with him regarding the importance of taking his dual antiplatelet therapy for at least 4 weeks and continue taking his anti- ischemic medications as well. The patient was in full understanding and agreement. The discussion took place with the nurse in the room. Plan - Discharge Summary Discharge Rx Participant: No New Discharge Prescriptions: New Clopidogrel [Plavix] 75 mg PO DAILY #90 tab Continue HYDROcodone/APAP 10-325MG [[place] 10-325] 1 tab PO QID Gabapentin 300 mg PO TID Aspirin 325 mg PO DAILY #30 tab Atorvastatin [Lipitor] 80 mg PO HS #30 tab Lisinopril [Zestril] 10 mg PO DAILY #30 tab Metoprolol Tartrate [Lopressor] 25 mg PO BID #60 tab Nitroglycerin Sl Tabs [Nitrostat] 0.4 mg SUBLINGUAL Q5M PRN #25 tab PRN Reason: Chest Pain Prasugrel [Effient] 10 mg PO DAILY #30 tab Discharge Medication List HYDROcodone/APAP 10-325MG [[place] 10-325] 1 tab PO QID 04/02/14 [History] Gabapentin 300 mg PO TID 06/06/15 [History] Aspirin 325 mg PO DAILY #30 tab 07/31/16 [Rx] Atorvastatin [Lipitor] 80 mg PO HS #30 tab 07/31/16 [Rx] Lisinopril [Zestril] 10 mg PO DAILY #30 tab 07/31/16 [Rx] Metoprolol Tartrate [Lopressor] 25 mg PO BID #60 tab 07/31/16 [Rx] Nitroglycerin Sl Tabs [Nitrostat] 0.4 mg SUBLINGUAL Q5M PRN #25 tab 07/31/16 [Rx] Prasugrel [Effient] 10 mg PO DAILY #30 tab 07/31/16 [Rx] Clopidogrel [Plavix] 75 mg PO DAILY #90 tab 10/01/19 [Rx] Follow up Appointment(s)/Referral(s): James Tucker MD [STAFF PHYSICIAN] - 1 Week (office not open at discharge/ message left with gilmer on answering machine to follow up with patient/ post hospital follow up in [address] Tucker/ ) Patient Instructions/Handouts: Left Heart Catheterization (DC) Discharge Disposition: HOME SELF-CARE
== END 2019-10-01 09:24 | disposition home or self-care (01) ==
LOC: CATHCVL 14:05 → 3SCARD 18:27 → CATHCVL 10-01 09:24
PROVIDERS: ATTEND Internal Medicine Interventional Cardiology
DX: T82.855A Stenosis of coronary artery stent, initial encounter (principal); I25.110 Atherosclerotic heart disease of native coronary artery with unstable angina pectoris; F17.200 Nicotine dependence, unspecified, uncomplicated; I10 Essential (primary) hypertension; E78.5 Hyperlipidemia, unspecified; Z91.14 Patient's other noncompliance with medication regimen; E78.00 Pure hypercholesterolemia, unspecified; Z95.5 Presence of coronary angioplasty implant and graft; E11.9 Type 2 diabetes mellitus without complications; I25.2 Old myocardial infarction; Z79.82 Long term (current) use of aspirin; Z79.899 Other long term (current) drug therapy
CPT/HCPCS: 93458; 92920; 80048; 85025; C1769 ×3; C1887 ×2; C1894 ×2; C1725; J2250; J2001; J1170; J0583; Q9967

== ENCOUNTER → 2020-01-27 | Outpatient (CLI) | payer OTHER ==
--- NOTE | 2020-01-27 15:47 | XR ---
EXAMINATION TYPE: XR spine complete AP and Lat DATE OF EXAM: 01/27/2020 COMPARISON: 02/05/2016 HISTORY: Neck pain and back pain TECHNIQUE: Five-view cervical spine FINDINGS: Note is made of calcification in the carotid regions. Cervical spine: Prevertebral space is normal. There is loss of disc height C5-C6. Some posterior endp late spurring is present C5-6. Kyphosis is present. Posterior spinal lamellar line is intact. The odo ntoid is limited with overlying occiput. Thoracic spine: There are 12 thoracic type vertebral bodies. Pedicles are intact. Disc heights are pr eserved. Vertebral body heights are preserved. Lumbar spine: There 5 lumbar-type vertebral bodies. Pedicles are intact. IMPRESSION: 1. Normal spine
== END | disposition home or self-care (01) ==
LOC: RAD 15:12
PROVIDERS: ATTEND Nurse Practitioner
DX: M54.2 Cervicalgia (principal); M54.5 Low back pain
CPT/HCPCS: 72082

== ENCOUNTER 2020-01-28 12:53 | Emergency (ER) | payer OTHER ==
[2020-01-28 13:43] LABS: Appearance,Urine Clear (Clear); Bilirubin,Urine Negative (Negative); Blood,Urine Negative (Negative); Color,Urine Light Yellow; Glucose,Urine (UA) 4+ (Negative); Ketones,Urine Negative (Negative); Leukocyte Esterase,Urine Negative (Negative); Nitrite,Urine Negative (Negative); Protein,Urine Negative (Negative); Urobilinogen,Urine <2.0 mg/dL (<2.0)
--- NOTE | 2020-01-28 13:45 | ED ---
Male Urogenital HPI - General Chief complaint: Urogenital Stated complaint: Male Time Seen by Provider: 01/28/20 13:23 Source: patient Mode of arrival: ambulatory Limitations: no limitations - History of Present Illness Initial comments: Patient a 59-year-old male presenting to emergency Department with a chief complaint of scrotal pain. Patient reports this been ongoing issue for the past couple of months. States he noticed a mass on the bottom of this scrotum. Patient reports this was not painful until the last few days where it has becoming increasingly uncomfortable. Patient denies any drainage or erythema at the region. Denies any testicular enlargement. Denies penile discharge or pain. Denies any dysuria, increased urgency or frequency. - Related Data Home Medications Medication Instructions Recorded Confirmed HYDROcodone/APAP 10-325MG [[place] 1 tab PO QID 04/02/14 01/28/20 10-325] Gabapentin 100 mg PO TID 06/06/15 01/28/20 Allergies Allergy/AdvReac Type Severity Reaction Status Date / Time No Known Allergies Allergy Verified 01/28/20 14:15 Review of Systems ROS Statement: Those systems with pertinent positive or pertinent negative responses have been documented in the HPI. ROS Other: All systems not noted in ROS Statement are negative. Past Medical History Past Medical History: Chest Pain / Angina, Diabetes Mellitus, Hyperlipidemia, Hypertension, Myocardial Infarction ([place]), Osteoarthritis (OA) Additional Past Medical History / Comment(s): Hx diverticulitis, constipation, frequent urination, SOB, general chronic pain. "Lump on scrotum that has gotten a lot bigger over the last 2 days, going to ER to get it checked out." "May cancel this procedure depending on what happens with that." States does not take any medication for Diabetes or hypertension, states "I don't believe in that stuff and don't like the way it makes me feel." Last Myocardial Infarction Date:: 07-28-16 History of Any Multi-Drug Resistant Organisms: None Reported Past Surgical History: Heart Catheterization, Heart Catheterization With Stent, Orthopedic Surgery Additional Past Surgical History / Comment(s): Colonoscopy, eye surgery, right knee surgery, 5 left ear surgeries, has 2 stents total. Past Anesthesia/Blood Transfusion Reactions: Motion Sickness Date of Last Stent Placement:: 07-28-16 Past Psychological History: Bipolar, Depression, Schizophrenia Smoking Status: Current every day smoker Past Alcohol Use History: None Reported Past Drug Use History: Marijuana - Past Family History Mother History Unknown: Yes Family Medical History: Unable to Obtain Father History Unknown: Yes Family Medical History: Unable to Obtain General Exam Limitations: no limitations General appearance: alert, in no apparent distress Head exam: Present: atraumatic, normocephalic, normal inspection Eye exam: Present: normal appearance, PERRL, EOMI Pupils: Present: normal accommodation ENT exam: Present: normal exam, normal oropharynx, mucous membranes moist, TM's normal bilaterally, normal external ear exam Neck exam: Present: normal inspection, full ROM. Absent: tenderness Respiratory exam: Present: normal lung sounds bilaterally. Absent: respiratory distress, wheezes, rales Cardiovascular Exam: Present: regular rate, normal rhythm, normal heart sounds Rectal exam: Present: normal inspection. Absent: normal rectal tone, decreased rectal tone, heme (-) stool, heme (+) stool exam: Present: normal inspection (There is a mass measuring approximately 1.5 cm x 1 cm on the most inferior aspect of the scrotum near the perineum. There is no discharge noted. No overlying cellulitic skin changes.), testicular tenderness (Slight tenderness over the mass with palpation.). Absent: urethral discharge, scrotal swelling, vertical testicular lie Extremities exam: Present: normal inspection, full ROM, normal capillary refill. Absent: tenderness Back exam: Present: normal inspection, full ROM. Absent: tenderness, CVA tenderness (R), CVA tenderness (L) Neurological exam: Present: alert, oriented X3 Psychiatric exam: Present: normal affect, normal mood Skin exam: Present: warm, dry, intact, normal color Course Vital Signs 01/28/20 01/28/20 13:15 14:53 Temperature 98.2 F 98.3 F Pulse Rate 76 70 Respiratory 20 16 Rate Blood Pressure 118/71 122/73 O2 Sat by Pulse 99 99 Oximetry Medical Decision Making - Medical Decision Making patient is a 59-year-old male presenting to the emergency department with a chief complaint of a scrotal mass. On physical examination, patient does have a cystic like mass on the inferior aspect of the scrotum near the perineum. There is no overlying cellulitic skin changes or any discharge that would indicate cellulitis or an abscess. UA is unremarkable. Ultrasound performed reveals a hypodense mass likely a sebaceous cyst. There is also bilateral hydroceles. Patient was advised to follow with urology. Strict return parameters were thoroughly discussed the patient is under standing agreeable. Case discussed with physician. - Lab Data Lab Results 01/28/20 Range/Units 13:31 Urine Color Light Yellow Urine Appearance Clear (Clear) Urine pH 5.0 (5.0-8.0) Ur Specific [place] 1.030 (1.001-1.035) Urine Protein Negative (Negative) Urine Glucose (UA) 4+ H (Negative) Urine Ketones Negative (Negative) Urine Blood Negative (Negative) Urine Nitrite Negative (Negative) Urine Bilirubin Negative (Negative) Urine Urobilinogen <2.0 (<2.0) mg/dL Ur Leukocyte Esterase Negative (Negative) Disposition Clinical Impression: Scrotal mass Disposition: HOME SELF-CARE Condition: Stable Instructions (If sedation given, give patient instructions): Epidermal Inclusion Cysts (ED) Additional Instructions: Follow-up with her primary care physician. Return to emergency department if symptoms worsen. Is patient prescribed a controlled substance at d/c from ED?: No Referrals: [facility] [Primary Care Provider] - 1-2 days Aldair Velez MD [STAFF PHYSICIAN] - 1-2 days Time of Disposition: 14:38
--- NOTE | 2020-01-28 14:23 | US ---
EXAMINATION TYPE: US scrotum with doppler. Grayscale and color Doppler Duplex imaging performed of t he scrotum. DATE OF EXAM: 01/28/2020 COMPARISON: NONE CLINICAL HISTORY: testicular pain. palpable lump inferior to testicles EXAM MEASUREMENTS: TESTICLES: Right Testicle: 4.2 x 2.3 x 2.7 cm Left Testicle: 4.1 x 2.0 x 2.8 cm EPIDIDYMIS HEAD: Right Epididymis: 1.0 cm. Cyst visualized measuring 0.3 cm Left Epididymis: 0.9 cm Cyst visualized measuring 0.6 cm Doppler performed to assess for testicular vascularity; good bilateral color flow and waveforms are s een. There is no evidence of testicular torsion. Presence of hydroceles: Yes, bilaterally Presence of varicoceles: No Bilateral epididymal cysts. Bilateral hydroceles. At the patient's palpable lump, inferior to the al ticles, there is a small hypoechoic area visualized at the skin line measuring 0.3 x 0.2 x 0.3 cm IMPRESSION: 1. Bilateral hydroceles. 2. Tiny subcutaneous ill-defined hypodensity at the level of palpable abnormality within the skin of the scrotum. Consider a sebaceous cyst.
[2020-01-28 14:54] VITALS: BP 122/73; PULSE 70; RESP 16; TEMP 98.3
== END 2020-01-28 14:54 | disposition home or self-care (01) ==
LOC: EC 12:53
DX: N50.89 Other specified disorders of the male genital organs (principal); N43.3 Hydrocele, unspecified; E11.9 Type 2 diabetes mellitus without complications; I10 Essential (primary) hypertension; I25.2 Old myocardial infarction; F17.200 Nicotine dependence, unspecified, uncomplicated; Z79.899 Other long term (current) drug therapy; Z95.5 Presence of coronary angioplasty implant and graft
CPT/HCPCS: 76870; 81003; 93975; 99284

== ENCOUNTER → 2020-02-29 | Day surgery (SDC) | payer OTHER ==
[2020-02-25 10:38] VITALS: BMI 23.5
[~2020-02-29] MED LIST changes: -ALPRAZolam 0.25 MG TAB PO PRN; -ALPRAZolam 0.5 MG TAB PO PRN; -ASPIRIN 325 MG TAB PO STA; -ATORVASTATIN 80 MG TAB PO STA; +LACTATED RINGERS 1,000 ML IV SCH; -NITROGLYCERIN SL TABS 0.4 MG TAB SUBLINGUAL PRN; -SODIUM CHLORIDE 0.9% 1,000 ML in EMPTY BAG 1 BAG IV ONE
== END ==
LOC: ORWHC2ENDO 06:51
PROVIDERS: ATTEND Internal Medicine
DX: Z53.8 Procedure and treatment not carried out for other reasons (principal)

== ENCOUNTER 2020-08-15 07:04 | Day surgery (SDC) | payer OTHER ==
[2020-08-11 10:14] VITALS: BMI 23.5
[2020-08-15] MEDS ORDERED: LIDOCAINE 1% (10MG/ML) FOR IV START INTRADERMA ONE (07:42)
[2020-08-15 07:48] VITALS: RESP 16; TEMP 96.9
[2020-08-15] MEDS ORDERED: PROPOFOL 10 MG/ML 20 ML VIAL IV ONE (08:08)
--- NOTE | 2020-08-15 08:27 | P.OP ---
Date of Procedure: 08/15/20 Procedure(s) Performed: PREOPERATIVE DIAGNOSIS: Rectal bleeding POSTOPERATIVE DIAGNOSIS: Appendiceal polyp, ascending colon polyp, diverticulosis, small hemorrhoids PROCEDURE: Colonoscopy with snare polypectomy and biopsy ANESTHESIA: MAC SURGEON: Shmuel Harrell M.D. SPECIMENS: Appendix polyp, ascending colon polyp ENDOSCOPIC PROCEDURE: The patient was placed on the endoscopy table in the left decubitus position. The Olympus colonoscope was inserted into the anus and passed under direct visualization to the base of the cecum. The appendiceal orifice was visualized. From that point the scope was slowly withdrawn inspecting all surfaces carefully. At the appendiceal orifice there was some polypoid tissue seen emanating from the orifice. Cold biopsies were taken to evaluate for adenomatous changes. In the mid ascending colon a prominent fold was also partially excised using the snare with cautery technique to determine whether this represented adenomatous tissue. The remainder of the ascending transverse descending sigmoid and rectum are normal. There was mild left-sided diverticulosis. At the anus the patient had small hemorrhoids that was likely the source of recent bleeding. No active bleeding at this time. The patient was taken to the recovery room in stable condition per anesthesia guidelines. RECOMMENDATIONS: Resume diet. Await biopsy results to determine timing of next colonoscopy.
[2020-08-15 08:59] VITALS: BP 116/68; PULSE 62
== END 2020-08-15 09:11 | disposition home or self-care (01) ==
LOC: ORWHC2ENDO 07:04
PROVIDERS: ATTEND Surgery
DX: D12.1 Benign neoplasm of appendix (principal); D12.2 Benign neoplasm of ascending colon; K64.9 Unspecified hemorrhoids; F17.210 Nicotine dependence, cigarettes, uncomplicated; E11.9 Type 2 diabetes mellitus without complications; F31.9 Bipolar disorder, unspecified; I25.2 Old myocardial infarction; F20.9 Schizophrenia, unspecified; Z95.5 Presence of coronary angioplasty implant and graft; Z97.2 Presence of dental prosthetic device (complete) (partial); Z98.890 Other specified postprocedural states; Z79.02 Long term (current) use of antithrombotics/antiplatelets; Z79.891 Long term (current) use of opiate analgesic; Z79.899 Other long term (current) drug therapy
CPT/HCPCS: 88305; 45380; 45385; J2704

== ENCOUNTER 2021-01-12 10:23 | Emergency (ER) | payer OTHER ==
[2021-01-12 10:27] VITALS: RESP 18
[2021-01-12] MEDS ORDERED: MORPHINE SULFATE 4 MG/ML SYRINGE IM STA (10:45)
[2021-01-12] MEDS ORDERED: methylPREDNISolone SOD SUCCI 125 MG/2 ML VIAL IM ONE (10:45)
--- NOTE | 2021-01-12 11:20 | ED ---
Back Pain HPI - General Chief Complaint: Back Pain/Injury Stated Complaint: lt sided low back pain Time Seen by Provider: 01/12/21 10:29 Source: patient, RN notes reviewed Limitations: no limitations - History of Present Illness Initial Comments: Patient is a 60-year-old male that presents to the emergency department complaining of left lower back pain. He notes that he was recently bending over or lifting boxes when he felt a strain in his lower back. He notes that he's been trying lidocaine patches and at home pain medication with no relief. He notes that he is still able to use the bathroom with no issues. He denied any saddle anesthesia bladder or bowel incontinence or retention. He notes that he is having radicular symptoms down his left thigh. Patient was otherwise well- appearing. He denied any chest pain shortness of breath headache nausea vomiting diarrhea constipation fever fatigue chills. Patient is able to ambulate on his own in his room - Related Data Home Medications Medication Instructions Recorded Confirmed HYDROcodone/APAP 10-325MG [[place] 1 tab PO QID 04/02/14 01/12/21 10-325] Gabapentin [Neurontin] 300 mg PO TID 08/11/20 01/12/21 Previous Rx's Medication Instructions Recorded predniSONE 50 mg PO DAILY #5 tab 01/12/21 Allergies Allergy/AdvReac Type Severity Reaction Status Date / Time No Known Allergies Allergy Verified 01/12/21 11:23 Review of Systems ROS Statement: Those systems with pertinent positive or pertinent negative responses have been documented in the HPI. ROS Other: All systems not noted in ROS Statement are negative. Past Medical History Past Medical History: Coronary Artery Disease (CAD), Chest Pain / Angina, Diabetes Mellitus, Hyperlipidemia, Hypertension, Myocardial Infarction ([place]), Ost eoarthritis (OA) Additional Past Medical History / Comment(s): recent blood in stool, hemmoroids, Hx diverticulitis, hx colon polyps, SOB, chronic back pain. States does not take any medication for Diabetes or hypertension, states "I don't believe in that stuff and don't like the way it makes me feel." Saw sql report analyst recently and agreed to take aspirin, has had abscess removed from scrotum and buttock Last Myocardial Infarction Date:: 07-28-16 History of Any Multi-Drug Resistant Organisms: None Reported Past Surgical History: Heart Catheterization, Heart Catheterization With Stent, Orthopedic Surgery Additional Past Surgical History / Comment(s): Colonoscopy, eye surgery, right knee surgery, 5 left ear surgeries, (for benign cholesteatoma) has 2 stents total. had angioplasty 09/30/19 Past Anesthesia/Blood Transfusion Reactions: Motion Sickness Date of Last Stent Placement:: 09/28? Past Psychological History: Bipolar, Depression, Schizophrenia Smoking Status: Current every day smoker Past Alcohol Use History: None Reported Past Drug Use History: Marijuana - Past Family History Mother History Unknown: Yes Family Medical History: Unable to Obtain Father History Unknown: Yes Family Medical History: Unable to Obtain General Exam Limitations: no limitations General appearance: alert, in no apparent distress Head exam: Present: atraumatic, normocephalic, normal inspection Eye exam: Present: normal appearance, PERRL, EOMI. Absent: scleral icterus, conjunctival injection, periorbital swelling Neck exam: Present: normal inspection Respiratory exam: Present: normal lung sounds bilaterally. Absent: respiratory distress, wheezes, rales, rhonchi, stridor Cardiovascular Exam: Present: regular rate, normal rhythm, normal heart sounds. Absent: systolic murmur, diastolic murmur, rubs, gallop, clicks Extremities exam: Present: normal inspection, full ROM, normal capillary refill. Absent: tenderness, pedal edema, joint swelling, calf tenderness Back exam: Present: normal inspection, tenderness (Left SI) Neurological exam: Present: alert, oriented X3 Psychiatric exam: Present: normal affect, normal mood Skin exam: Present: warm, dry, intact, normal color. Absent: rash Course Vital Signs 01/12/21 10:25 Temperature 98.4 F Pulse Rate 64 Respiratory 18 Rate Blood Pressure 199/93 O2 Sat by Pulse 97 Oximetry Medical Decision Making - Medical Decision Making 60-year-old male complaining of left lower back pain with radicular symptoms on the left leg. X-ray lumbar spine, 4 mg morphine, 125 mg of Solu-Medrol ordered. X-ray shows no acute osseous abnormality. Case discussed with Dr. Mclain, patient discharge home with follow-up primary care. Steroids will be sent the patient's pharmacy for sciatica pain with radicular symptoms. - Radiology Data Radiology results: report reviewed, image reviewed X-ray lumbar spine: Slight kyphosis within the lumbar spine. This could be positional. No acute osseous abnormality is evident. Disposition Clinical Impression: Sciatica, Lumbar radiculopathy Disposition: HOME SELF-CARE Condition: Stable Instructions (If sedation given, give patient instructions): Acute Low Back Pain (ED) Additional Instructions: Please return to the Emergency Department if symptoms worsen or any other concerns. Follow-up primary care 1-2 days. Take steroids as prescribed. Avoid any shortness activity or exercise. Is patient prescribed a controlled substance at d/c from ED?: No Referrals: Jessica Leyva [facility] [Primary Care Provider] - 1-2 days Time of Disposition: 11:47
--- NOTE | 2021-01-12 11:41 | XR ---
EXAMINATION TYPE: XR lumbar spine 2 or 3V DATE OF EXAM: 01/12/2021 COMPARISON: 04/06/2014 HISTORY: Pain TECHNIQUE: 3 view lumbar spine FINDINGS: There are 5 lumbar-type vertebral bodies. The pedicles are intact. Disc heights are preserv ed. Vertebral body heights are preserved. There is slight kyphosis through the lumbar spine which can be positional. IMPRESSION: 1. Slight kyphosis within the lumbar spine. This can be positional. 2. No acute osseous abnormality evident.
[2021-01-12 12:27] VITALS: BP 141/77; PULSE 72; TEMP 98
== END 2021-01-12 12:23 | disposition home or self-care (01) ==
LOC: EC 10:23
DX: M54.42 Lumbago with sciatica, left side (principal); M54.16 Radiculopathy, lumbar region; I10 Essential (primary) hypertension; I25.10 Atherosclerotic heart disease of native coronary artery without angina pectoris; I25.2 Old myocardial infarction; E11.9 Type 2 diabetes mellitus without complications; E78.5 Hyperlipidemia, unspecified; M19.90 Unspecified osteoarthritis, unspecified site; F31.9 Bipolar disorder, unspecified; F12.90 Cannabis use, unspecified, uncomplicated; F17.200 Nicotine dependence, unspecified, uncomplicated; Z87.19 Personal history of other diseases of the digestive system
CPT/HCPCS: 99283; 96372 ×2; 72100; J2270; J2930

== ENCOUNTER 2021-01-12 14:06 | Emergency (ER) | payer OTHER ==
[2021-01-12 14:14] VITALS: TEMP 98.1
[2021-01-12] MEDS ORDERED: SODIUM CHLORIDE 0.9% 1,000 ML IV STA (14:15)
[2021-01-12] MEDS ORDERED: HYDROmorphone 1 MG/ML 1 ML SYRINGE IVP STA (14:15)
[2021-01-12] MEDS ORDERED: ONDANSETRON 4 MG/2 ML VIAL IVP STA ×2 (14:15→15:55)
--- NOTE | 2021-01-12 14:26 | ED ---
Recheck HPI - General Chief Complaint: Recheck/Abnormal Lab/Rx Stated Complaint: High BP, Revisit Time Seen by Provider: 01/12/21 14:14 Source: patient, RN notes reviewed Mode of arrival: wheelchair Limitations: no limitations - History of Present Illness Initial Comments: Patient is a 60-year-old male that presents to emergency department stating that he's had high blood pressure at the chiropractic office earlier today. Patient was in the ER previously for a low back pain and sciatica. He was discharged home with steroids and told to follow-up with his primary care to take it easy over the next few days. Patient was witnessed getting up and walking from chair to bed bed the chair without any difficulty, limp. Patient denied any change from previous visit. He is still having low back pain. Patient was informed that the pain and exertion with increased blood pressure. She denied any chest pain shortness of breath headache nausea vomiting diarrhea constipation or chills. - Related Data Home Medications Medication Instructions Recorded Confirmed HYDROcodone/APAP 10-325MG [[place] 1 tab PO QID 04/02/14 01/12/21 10-325] Gabapentin [Neurontin] 300 mg PO TID 08/11/20 01/12/21 Previous Rx's Medication Instructions Recorded predniSONE 50 mg PO DAILY #5 tab 01/12/21 Allergies Allergy/AdvReac Type Severity Reaction Status Date / Time No Known Allergies Allergy Verified 01/12/21 11:23 Review of Systems ROS Statement: Those systems with pertinent positive or pertinent negative responses have been documented in the HPI. ROS Other: All systems not noted in ROS Statement are negative. Past Medical History Past Medical History: Coronary Artery Disease (CAD), Chest Pain / Angina, Diabetes Mellitus, Hyperlipidemia, Hypertension, Myocardial Infarction ([place]), Osteoarthritis (OA) Additional Past Medical History / Comment(s): recent blood in stool, hemmoroids, Hx diverticulitis, hx colon polyps, SOB, chronic back pain. States does not take any medication for Diabetes or hypertension, states "I don't believe in that stuff and don't like the way it makes me feel." Saw wire stitcher recently and agreed to take aspirin, has had abscess removed from scrotum and buttock Last Myocardial Infarction Date:: 07-28-16 History of Any Multi-Drug Resistant Organisms: None Reported Past Surgical History: Heart Catheterization, Heart Catheterization With Stent, Orthopedic Surgery Additional Past Surgical History / Comment(s): Colonoscopy, eye surgery, right knee surgery, 5 left ear surgeries, (for benign cholesteatoma) has 2 stents total. had angioplasty 09/30/19 Past Anesthesia/Blood Transfusion Reactions: Motion Sickness Date of Last Stent Placement:: 09/28? Past Psychological History: Bipolar, Depression, Schizophrenia Smoking Status: Current every day smoker Past Alcohol Use History: None Reported Past Drug Use History: Marijuana - Past Family History Mother History Unknown: Yes Family Medical History: Unable to Obtain Father History Unknown: Yes Family Medical History: Unable to Obtain General Exam Limitations: no limitations General appearance: alert, in no apparent distress Head exam: Present: atraumatic, normocephalic, normal inspection Eye exam: Present: normal appearance, PERRL, EOMI. Absent: scleral icterus, conjunctival injection, periorbital swelling ENT exam: Present: normal exam, mucous membranes moist Neck exam: Present: normal inspection Respiratory exam: Present: normal lung sounds bilaterally. Absent: respiratory distress, wheezes, rales, rhonchi, stridor Cardiovascular Exam: Present: regular rate, normal rhythm, normal heart sounds. Absent: systolic murmur, diastolic murmur, rubs, gallop, clicks GI/Abdominal exam: Present: soft, normal bowel sounds. Absent: distended, tenderness, guarding, rebound, rigid Extremities exam: Present: normal inspection, full ROM, normal capillary refill. Absent: tenderness, pedal edema, joint swelling, calf tenderness Back exam: Present: normal inspection, tenderness (Left SI) Neurological exam: Present: alert, oriented X3 Psychiatric exam: Present: normal affect, normal mood Skin exam: Present: warm, dry, intact, normal color. Absent: rash Course Vital Signs 01/12/21 01/12/21 14:11 15:30 Temperature 98.1 F Pulse Rate 66 94 Respiratory 18 20 Rate Blood Pressure 200/82 190/95 O2 Sat by Pulse 98 98 Oximetry Medical Decision Making - Medical Decision Making 60-year-old male complaining of high blood pressure, has sciatica with radicular symptoms down the left leg. Labs, EKG, 1 L normal saline, 1 mg of Dilaudid, 4 mg Zofran ordered. Labs unremarkable. EKG within normal limits and similar to previous studies. patient's blood pressure elevated due to pain and being worked up. Case discussed with Dr. Moya, patient can discharge home. - Lab Data Result diagrams: 01/12/21 14:27 01/12/21 14:27 Lab Results 01/12/21 01/12/21 01/12/21 Range/Units 14:27 14:27 14:27 WBC 7.3 (3.8-10.6) k/uL RBC 4.92 (4.30-5.90) m/uL Hgb 16.6 (13.0-17.5) gm/dL Hct 46.7 (39.0-53.0) % MCV 94.9 (80.0-100.0) fL MCH 33.7 (25.0-35.0) pg MCHC 35.5 (31.0-37.0) g/dL RDW 13.5 (11.5-15.5) % Plt Count 162 (150-450) k/uL MPV 9.4 Neutrophils % 90 % Lymphocytes % 8 % Monocytes % 1 % Eosinophils % 0 % Basophils % 0 % Neutrophils # 6.5 (1.3-7.7) k/uL Lymphocytes # 0.6 L (1.0-4.8) k/uL Monocytes # 0.1 (0-1.0) k/uL Eosinophils # 0.0 (0-0.7) k/uL Basophils # 0.0 (0-0.2) k/uL Sodium 137 (137-145) mmol/L Potassium 4.0 (3.5-5.1) mmol/L Chloride 99 (98-107) mmol/L Carbon Dioxide 28 (22-30) mmol/L Anion Gap 10 mmol/L BUN 18 (9-20) mg/dL Creatinine 0.82 (0.66-1.25) mg/dL Est GFR (CKD-EPI)AfAm >90 (>60 ml/min/1.73 sqM) Est GFR (CKD-EPI)NonAf >90 (>60 ml/min/1.73 sqM) Glucose 343 H (74-99) mg/dL Calcium 9.8 (8.4-10.2) mg/dL Total Bilirubin 0.6 (0.2-1.3) mg/dL AST 23 (17-59) U/L ALT 28 (4-49) U/L Alkaline Phosphatase 100 (38-126) U/L Troponin I 0.021 (0.000-0.034) ng/mL Total Protein 7.4 (6.3-8.2) g/dL Albumin 4.4 (3.5-5.0) g/dL Urine Color Urine Appearance (Clear) Urine pH (5.0-8.0) Ur Specific [place] (1.001-1.035) Urine Protein (Negative) Urine Glucose (UA) (Negative) Urine Ketones (Negative) Urine Blood (Negative) Urine Nitrite (Negative) Urine Bilirubin (Negative) Urine Urobilinogen (<2.0) mg/dL Ur Leukocyte Esterase (Negative) Urine RBC (0-5) /hpf Urine WBC (0-5) /hpf 01/12/21 Range/Units 15:20 WBC (3.8-10.6) k/uL RBC (4.30-5.90) m/uL Hgb (13.0-17.5) gm/dL Hct (39.0-53.0) % MCV (80.0-100.0) fL MCH (25.0-35.0) pg MCHC (31.0-37.0) g/dL RDW (11.5-15.5) % Plt Count (150-450) k/uL MPV Neutrophils % % Lymphocytes % % Monocytes % % Eosinophils % % Basophils % % Neutrophils # (1.3-7.7) k/uL Lymphocytes # (1.0-4.8) k/uL Monocytes # (0-1.0) k/uL Eosinophils # (0-0.7) k/uL Basophils # (0-0.2) k/uL Sodium (137-145) mmol/L Potassium (3.5-5.1) mmol/L Chloride (98-107) mmol/L Carbon Dioxide (22-30) mmol/L Anion Gap mmol/L BUN (9-20) mg/dL Creatinine (0.66-1.25) mg/dL Est GFR (CKD-EPI)AfAm (>60 ml/min/1.73 sqM) Est GFR (CKD-EPI)NonAf (>60 ml/min/1.73 sqM) Glucose (74-99) mg/dL Calcium (8.4-10.2) mg/dL Total Bilirubin (0.2-1.3) mg/dL AST (17-59) U/L ALT (4-49) U/L Alkaline Phosphatase (38-126) U/L Troponin I (0.000-0.034) ng/mL Total Protein (6.3-8.2) g/dL Albumin (3.5-5.0) g/dL Urine Color Light Yellow Urine Appearance Clear (Clear) Urine pH 7.5 (5.0-8.0) Ur Specific [place] 1.023 (1.001-1.035) Urine Protein 2+ H (Negative) Urine Glucose (UA) 4+ H (Negative) Urine Ketones 1+ H (Negative) Urine Blood Trace H (Negative) Urine Nitrite Negative (Negative) Urine Bilirubin Negative (Negative) Urine Urobilinogen <2.0 (<2.0) mg/dL Ur Leukocyte Esterase Negative (Negative) Urine RBC 11 H (0-5) /hpf Urine WBC <1 (0-5) /hpf - EKG Data -: EKG Interpreted by Wy EKG shows normal: sinus rhythm Rate: normal EKG Comments: Ventricular rate 62 bpm, [place] interval 162 ms, QRS duration 112 ms, QTC 432 ms, PRT axes 38/-80/42. Normal sinus rhythm, left axis deviation, inferior infarct age undetermined. Abnormal ECG. Disposition Clinical Impression: Hypertension, Sciatica, Lumbar radiculopathy Disposition: HOME SELF-CARE Condition: Stable Instructions (If sedation given, give patient instructions): Chronic Hypertension (ED) Additional Instructions: Please return to the Emergency Department if symptoms worsen or any other concerns. Follow-up with primary care 1-2 days. Avoid any shortness activity or exercise. Take steroids as prescribed. Take pain medication at home as prescribed. Is patient prescribed a controlled substance at d/c from ED?: No Referrals: [facility] [Primary Care Provider] - 1-2 days Time of Disposition: 16:00
[2021-01-12 14:43] LABS: Basophils % (A) 0 %; Eosinophils % (A) 0 %; HCT 46.7 % (39.0-53.0); HGB 16.6 gm/dL (13.0-17.5); Lymphocytes # (A) 0.6 k/uL (1.0-4.8); Lymphocytes % (A) 8 %; MCH 33.7 pg (25.0-35.0); MCHC 35.5 g/dL (31.0-37.0); MCV 94.9 fL (80.0-100.0); Mean Platelet Volume 9.4; Monocytes # (A) 0.1 k/uL (0-1.0); Monocytes % (A) 1 %; Neutrophils # (A) 6.5 k/uL (1.3-7.7); Neutrophils % (A) 90 %; Platelet Count 162 k/uL (150-450); RBC 4.92 m/uL (4.30-5.90); RDW 13.5 % (11.5-15.5); WBC 7.3 k/uL (3.8-10.6)
[2021-01-12 14:54] LABS: ALT 28 U/L (4-49); AST 23 U/L (17-59); African American GFR (CKD) >90 (>60 ml/min/1.73 sqM); Albumin 4.4 g/dL (3.5-5.0); Alkaline Phosphatase 100 U/L (38-126); Anion Gap 10 mmol/L; Blood Urea Nitrogen 18 mg/dL (9-20); Calcium 9.8 mg/dL (8.4-10.2); Carbon Dioxide 28 mmol/L (22-30); Chloride 99 mmol/L (98-107); Glucose 343 mg/dL (74-99); Non-African American GFR(CKD) >90 (>60 ml/min/1.73 sqM); Sodium 137 mmol/L (137-145); Total Bilirubin 0.6 mg/dL (0.2-1.3); Total Protein 7.4 g/dL (6.3-8.2)
[2021-01-12 15:29] LABS: Appearance,Urine Clear (Clear); Bilirubin,Urine Negative (Negative); Blood,Urine Trace (Negative); Color,Urine Light Yellow; Glucose,Urine (UA) 4+ (Negative); Ketones,Urine 1+ (Negative); Leukocyte Esterase,Urine Negative (Negative); Nitrite,Urine Negative (Negative); PH, Urine 7.5 (5.0-8.0); Protein,Urine 2+ (Negative); RBC,Urine 11 /hpf (0-5); Specific Gravity,Urine 1.023 (1.001-1.035); Urobilinogen,Urine <2.0 mg/dL (<2.0); WBC,Urine <1 /hpf (0-5)
[2021-01-12] MEDS ORDERED: LORazepam 2 MG/ML INJ IV STA (15:55)
[2021-01-12 17:25] VITALS: BP 197/95; PULSE 86; RESP 18
== END 2021-01-12 18:26 | disposition home or self-care (01) ==
LOC: EC 14:06
DX: M54.16 Radiculopathy, lumbar region (principal); M54.50 Low back pain, unspecified; M54.42 Lumbago with sciatica, left side; I10 Essential (primary) hypertension; I25.10 Atherosclerotic heart disease of native coronary artery without angina pectoris; E11.9 Type 2 diabetes mellitus without complications; E78.5 Hyperlipidemia, unspecified; I25.2 Old myocardial infarction; M19.90 Unspecified osteoarthritis, unspecified site; F31.9 Bipolar disorder, unspecified; F17.200 Nicotine dependence, unspecified, uncomplicated; F12.90 Cannabis use, unspecified, uncomplicated
CPT/HCPCS: 96375 ×3; 96361 ×4; 96376 ×2; 96374 ×2; 99283 ×3; 96372; 36415; 93005; 80053; 84484; 85025; 81001; 72100; J2060; J2270; J2930; J2405; J1170

== ENCOUNTER 2021-06-22 06:15 | Day surgery (SDC) | payer OTHER ==
[~2021-06-22 06:15] MED LIST changes: +ACETAMINOPHEN TAB 500 MG TAB PO PRN; +HEPARIN SODIUM,PORCINE/PF 5,000 UNIT/0.5 ML SYRINGE SQ PRN; -LACTATED RINGERS 1,000 ML IV SCH; +metroNIDAZOLE-NS PMX 500 MG in SALINE 1 100ML.BAG IVPB PRN
[2021-06-22] MEDS ORDERED: DEXAMETHASONE SOD PHOSPHATE 4 MG/ML 1 ML VIAL IV ONE (06:41)
[2021-06-22] MEDS ORDERED: LACTATED RINGERS 1,000 ML IV SCH (06:41)
[2021-06-22] MEDS ORDERED: HYDROmorphone 0.5 MG/0.5 ML SYRINGE IVP PRN (06:41)
[2021-06-22] MEDS ORDERED: ONDANSETRON 4 MG/2 ML VIAL IVP ONE (06:41)
[2021-06-22 07:26] LABS: Glucose,Whole Blood 213 mg/dL (75-99)
[2021-06-22] MEDS ORDERED: LIDOCAINE 1% INJ 10MG/ML (20 ML MDV) ONE (07:40)
[2021-06-22] MEDS ORDERED: PHENYLEPHRINE-0.9% NACL SYG 1,000 MCG/10 ML SYRINGE ONE (07:40)
[2021-06-22] MEDS ORDERED: MIDAZOLAM 2 MG/2 ML VIAL ONE (07:40)
[2021-06-22] MEDS ORDERED: SUCCINYLCHOLINE CHLORIDE 100 MG/5 ML SYR IV ONE (07:40)
[2021-06-22] MEDS ORDERED: fentaNYL (PF) 50 MCG/ML 2 ML AMP ONE (07:40)
[2021-06-22] MEDS ORDERED: NEOSTIGMINE 1 MG/ML 10 ML VIAL ONE (07:40)
[2021-06-22] MEDS ORDERED: PROPOFOL 10 MG/ML 20 ML VIAL IV ONE (07:40)
[2021-06-22] MEDS ORDERED: GLYCOPYRROLATE 0.2 MG/ML 2 ML VIAL ONE (07:40)
[2021-06-22] MEDS ORDERED: ROCURONIUM 10 MG/ML (5 ML VIAL) IV ONE (07:40)
--- NOTE | 2021-06-22 07:43 | P.GSHP ---
History of Present Illness H&P Date: 06/22/21 Chief Complaint: Appendiceal polyp 61-year-old male underwent colonoscopy last August. 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 Patient was advised that he should undergo appendectomy. This was scheduled on more than one occas ion but was canceled by the patient for various reasons each time. He is here today to proceed with laparoscopic appendectomy. No bowel complaints. Patient complains of chronic perianal itching. Past Medical History Past Medical History: Coronary Artery Disease (CAD), Chest Pain / Angina, Diabetes Mellitus, Hyperlipidemia, Hypertension, Myocardial Infarction ([place]), Osteoarthritis (OA) Additional Past Medical History / Comment(s): recent blood in stool, hemmoroids, Hx diverticulitis, hx colon polyps, SOB, chronic back pain. 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 had angioplasty 09/30/19 Past Anesthesia/Blood Transfusion Reactions: Motion Sickness Date of Last Stent Placement:: 09/28? Past Psychological History: Bipolar, Depression, Schizophrenia Smoking Status: Current every day smoker Past Alcohol Use History: None Reported Past Drug Use History: Marijuana - Past Family History Mother History Unknown: Yes Family Medical History: Unable to Obtain Father History Unknown: Yes Family Medical History: Unable to Obtain Medications and Allergies Home Medications Medication Instructions Recorded Confirmed Type HYDROcodone/APAP 10-325MG [[place] 1 tab PO QID 04/02/14 06/22/21 History 10-325] Gabapentin [Neurontin] 300 mg PO TID 08/11/20 06/22/21 History Aspirin [[place]az[place]] 81 mg PO DAILY 06/21/21 06/21/21 History Allergies Allergy/AdvReac Type Severity Reaction Status Date / Time No Known Allergies Allergy Verified 06/22/21 06:49 Surgical - Exam Vital Signs Temp Pulse Resp BP Pulse Ox 96.7 F L 67 16 169/108 98 06/22/21 06:50 06/22/21 06:50 06/22/21 06:50 06/22/21 06:50 06/22/21 06:50 Physical exam: General: Well-developed, well-nourished HEENT: Normocephalic, sclerae nonicteric Abdomen: Nontender, nondistended Extremities: No edema Neuro: Alert and oriented Results - Labs Abnormal Lab Results - Last 24 Hours (Table) 06/22/21 Range/Units 07:04 POC Glucose (mg/dL) 213 H (75-99) mg/dL Assessment and Plan (1) Benign tumor of appendix Narrative/Plan: 61-year-old male with polyp emanating from the appendiceal orifice. We'll proceed with laparoscopic appendectomy at this time. Risks of bleeding, infection, conversion to open procedure, hernia, bladder bowel and ureteral injury, positive margins, possible need for further surgery, hernia reviewed. He understands and wishes to proceed. Current Visit: Yes Status: Acute Code(s): D12.1 - BENIGN NEOPLASM OF APPENDIX SNOMED Code(s): 27069191
[2021-06-22 08:02] LABS: ALT 14 U/L (4-49); AST 17 U/L (17-59); African American GFR (CKD) >90 (>60 ml/min/1.73 sqM); Albumin 3.5 g/dL (3.5-5.0); Alkaline Phosphatase 64 U/L (38-126); Anion Gap 1 mmol/L; Blood Urea Nitrogen 17 mg/dL (9-20); Calcium 8.7 mg/dL (8.4-10.2); Carbon Dioxide 29 mmol/L (22-30); Chloride 108 mmol/L (98-107); Glucose 200 mg/dL (74-99); Non-African American GFR(CKD) 86 (>60 ml/min/1.73 sqM); Potassium 3.9 mmol/L (3.5-5.1); Sodium 138 mmol/L (137-145); Total Bilirubin 0.5 mg/dL (0.2-1.3); Total Protein 6.3 g/dL (6.3-8.2)
[2021-06-22] MEDS ORDERED: BUPIVACAIN-EPI 0.25%-1:200,000 30 ML VIAL SQ ONE ×2 (08:14)
[2021-06-22 08:59] VITALS: TEMP 97
[2021-06-22] MEDS ORDERED: NALOXONE 0.4 MG/ML 1 ML VIAL IV PRN (09:03)
[2021-06-22] MEDS ORDERED: HYDROcodone/APAP 5-325MG 1 EACH TAB PO PRN (09:03)
--- NOTE | 2021-06-22 09:06 | P.OP ---
Date of Procedure: 06/22/21 Procedure(s) Performed: PREOPERATIVE DIAGNOSIS: Appendiceal polyp POSTOPERATIVE DIAGNOSIS: Same PROCEDURE: Laparoscopic appendectomy SURGEON: Julio Cesar EBL: 10 mL ANESTHESIA: General COMPLICATIONS: None OPERATIVE PROCEDURE: The patient was brought and placed on the operating table in the supine position. The patient was placed under general anesthesia. The abdomen was prepped and draped in the usual sterile fashion. A small vertical infraumbilical incision was made. The fascia was retracted anteriorly with Tony forceps. The Veress needle was advanced into the peritoneal cavity. The saline drop test was normal. Insufflation took place to 15 mmHg. A 5 mm trocar was then placed. An additional 5 mm suprapubic trocar was placed under direct visualization as well as a 12 mm left lower quadrant trocar under direct visualization. The appendix was inspected. It appeared grossly normal. It was somewhat retrocecal. Dissection both bluntly and using the LigaSure allowed us to bring the appendix more anteriorly. The mesentery was divided using the LigaSure device. A small area of bleeding along the mesentery was controlled using a 10 mm clip. The appendix was then removed with a 1 cm portion of the base of the cecum. This was divided using a linear endoscopic stapler blue load. A small area of bleeding was seen along the edge of the staple line and controlled using a clip as well. The appendix was brought out of the abdominal cavity within the 12 mm trocar. The area was then irrigated. No purulence or bleeding was seen. The fascia at the 12 mm site was closed using a [id number] 0 Vicryl stitch. The skin at all 3 sites was closed using 4-0 Monocryl sutures. Skin glue was then applied. DISPOSITION: Stable to recovery room
[2021-06-22 09:07] LABS: Glucose,Whole Blood 269 mg/dL (75-99)
[2021-06-22] MEDS ORDERED: INSULIN ASPART (NovoLOG) 100 UNIT/ML VIAL SQ ONE (09:24)
[2021-06-22] MEDS ORDERED: LACTATED RINGERS 1,000 ML IV ONE (09:34)
[2021-06-22 09:57] VITALS: RESP 16
[2021-06-22] MEDS ORDERED: KETOROLAC 15 MG/ML 1 ML VIAL ONE (10:19)
[2021-06-22] MEDS ORDERED: KETOROLAC 15 MG/ML 1 ML VIAL IVP ONE (10:22)
[2021-06-22 11:08] VITALS: BP 145/85; PULSE 57
[2021-06-22 11:40] LABS: Glucose,Whole Blood 207 mg/dL (75-99)
== END 2021-06-22 11:57 | disposition home or self-care (01) ==
LOC: OR 06:15
PROVIDERS: ATTEND Surgery
DX: D12.1 Benign neoplasm of appendix (principal); I25.10 Atherosclerotic heart disease of native coronary artery without angina pectoris; E11.9 Type 2 diabetes mellitus without complications; E78.5 Hyperlipidemia, unspecified; I10 Essential (primary) hypertension; I25.2 Old myocardial infarction; M19.90 Unspecified osteoarthritis, unspecified site; Z87.11 Personal history of peptic ulcer disease; Z86.010 Personal history of colon polyps; G89.29 Other chronic pain; M54.9 Dorsalgia, unspecified; Z95.5 Presence of coronary angioplasty implant and graft; F31.9 Bipolar disorder, unspecified; F20.9 Schizophrenia, unspecified; Z98.890 Other specified postprocedural states; F17.200 Nicotine dependence, unspecified, uncomplicated; Z79.82 Long term (current) use of aspirin; Z79.891 Long term (current) use of opiate analgesic; Z79.899 Other long term (current) drug therapy
CPT/HCPCS: 88304; 80053; 44970; J2250; J1100; J2710; J0690; J2405; J2001; J3010; J1885; J2370; J0330; J2704; J1170; J1644

== ENCOUNTER 2021-10-08 14:46 | Emergency (ER) | payer OTHER ==
[2021-10-08 14:58] VITALS: BP 177/85; PULSE 77; RESP 16; TEMP 98.3
[2021-10-08] MEDS ORDERED: traMADol 50 MG STARTER PACK 3 TAB BTL PO STA (17:34)
--- NOTE | 2021-10-08 17:36 | ED ---
General Adult HPI - General Chief complaint: Skin/Abscess/Foreign Body Stated complaint: Pain and swelling on nose, possible spider bite Time Seen by Provider: 10/08/21 17:18 Source: patient, RN notes reviewed Mode of arrival: ambulatory Limitations: no limitations - History of Present Illness Initial comments: Patient is a pleasant 61-year-old male presenting to the emergency department with concern with infection of his nose. Patient has had some symptoms over the past year. Patient questioned spider bite. Patient states symptoms haven't changed to worsen the past couple of days. Patient states it is red and tender. Occasional drainage. Patient sometimes notices a scab. He states he will pick at it and blood may come out. No history of similar symptoms prior to this. - Related Data Home Medications Medication Instructions Recorded Confirmed HYDROcodone/APAP 10-325MG [[place] 1 tab PO QID 04/02/14 06/22/21 10-325] Gabapentin [Neurontin] 300 mg PO TID 08/11/20 06/22/21 Aspirin [[place]] 81 mg PO DAILY 06/21/21 06/21/21 Previous Rx's Medication Instructions Recorded Sulfamethox-Tmp 800-160Mg [Bactrim 2 each PO Q12HR #40 tab 10/08/21 DS 800-160 mg] Allergies Allergy/AdvReac Type Severity Reaction Status Date / Time No Known Allergies Allergy Verified 10/08/21 14:56 Review of Systems ROS Statement: Those systems with pertinent positive or pertinent negative responses have been documented in the HPI. ROS Other: All systems not noted in ROS Statement are negative. Constitutional: Denies: fever, chills Eyes: Denies: eye pain ENT: Reports: as per HPI Respiratory: Denies: cough Cardiovascular: Denies: chest pain Endocrine: Denies: fatigue Gastrointestinal: Denies: abdominal pain Genitourinary: Denies: dysuria Past Medical History Past Medical History: Coronary Artery Disease (CAD), Chest Pain / Angina, Diabetes Mellitus, Hyperlipidemia, Hypertension, Myocardial Infarction ([place]), Osteoarthritis (OA) Additional Past Medical History / Comment(s): recent blood in stool, hemmoroids, Hx diverticulitis, hx colon polyps, SOB, chronic back pain. States does not take any medication for Diabetes or hypertension, states "I don't believe in that stuff and don't like the way it makes me feel." Saw taxation inspector recently and agreed to take aspirin, has had abscess removed from scrotum and buttock Last Myocardial Infarction Date:: 07-28-16 History of Any Multi-Drug Resistant Organisms: None Reported Past Surgical History: Heart Catheterization, Heart Catheterization With Stent, Orthopedic Surgery Additional Past Surgical History / Comment(s): Colonoscopy, eye surgery, right knee surgery, 5 left ear surgeries, (for benign cholesteatoma) has 2 stents total. had angioplasty 09/30/19 Past Anesthesia/Blood Transfusion Reactions: Motion Sickness Date of Last Stent Placement:: 09/28? Past Psychological History: Bipolar, Depression, Schizophrenia Smoking Status: Current every day smoker Past Alcohol Use History: None Reported Past Drug Use History: Marijuana - Past Family History Mother History Unknown: Yes Family Medical History: Unable to Obtain Father History Unknown: Yes Family Medical History: Unable to Obtain General Exam Limitations: no limitations General appearance: alert, in no apparent distress Head exam: Present: normocephalic Eye exam: Present: normal appearance, PERRL ENT exam: Present: normal oropharynx, other (Distal nose with mild erythema and nonspecific swelling. No sign of abscess. This does extend somewhat towards the distal part of the left inner nares.) Neck exam: Present: normal inspection Respiratory exam: Present: normal lung sounds bilaterally Cardiovascular Exam: Present: regular rate, normal rhythm Extremities exam: Present: normal inspection Neurological exam: Present: normal gait Psychiatric exam: Present: normal affect, normal mood Skin exam: Present: normal color Course Vital Signs 10/08/21 14:56 Temperature 98.3 F Pulse Rate 77 Respiratory 16 Rate Blood Pressure 177/85 O2 Sat by Pulse 98 Oximetry Disposition Clinical Impression: Cellulitis of nose Disposition: HOME SELF-CARE Condition: Stable Instructions (If sedation given, give patient instructions): Cellulitis (ED) Additional Instructions: Prescription for antibiotics has been sent to pharmacy. Please follow-up with primary care physician in the next day or 2 for recheck. Please also follow-up with ENT, number provided. Return for fever, increased pain or swelling, worsening symptoms or other concerns. Prescriptions: Sulfamethox-Tmp 800-160Mg [Bactrim DS 800-160 mg] 2 each PO Q12HR #40 tab Is patient prescribed a controlled substance at d/c from ED?: No Referrals: [facility] [Primary Care Provider] - 1-2 days Cruzito Chinchilla MD [STAFF PHYSICIAN] - 1-2 days Time of Disposition: 17:34
== END 2021-10-08 19:03 | disposition home or self-care (01) ==
LOC: EC 14:46
DX: J34.0 Abscess, furuncle and carbuncle of nose (principal); E11.9 Type 2 diabetes mellitus without complications; E78.5 Hyperlipidemia, unspecified; I10 Essential (primary) hypertension; I25.2 Old myocardial infarction; I25.10 Atherosclerotic heart disease of native coronary artery without angina pectoris; Z79.1 Long term (current) use of non-steroidal anti-inflammatories (NSAID); F17.200 Nicotine dependence, unspecified, uncomplicated

== ENCOUNTER → 2021-10-25 | Outpatient (CLI) | payer OTHER ==
--- NOTE | 2021-10-25 15:20 | CT ---
EXAMINATION TYPE: CT cervical spine wo con CT DLP: 480.2 mGycm, Automated exposure control for dose reduction was used. DATE OF EXAM: 10/25/2021 2:54 PM COMPARISON: No direct comparisons. CLINICAL INDICATION:Male, 61 years old with history of M54.2 Cervicalgia, M54.50 Lowback pain; PHH, c ervicalgia TECHNIQUE: Axial CT images from the skull base to the inferior aspect of T2 we obtained without intra venous contrast. Coronal and sagittal reformatted images were also reviewed. FINDINGS: Fracture: None. Osseous structures: No suspicious osseous lesions. Fusion of the right C2-C3 facet joint. Vertebral alignment: Slight reversal the normal cervical lordosis. Grade 1 anterolisthesis of C4 on C 5. Spinal canal/Neural Foramina: No evidence of significant spinal canal narrowing. Moderate narrowing o f the right C2-C3 neural canal secondary to uncovertebral joint hypertrophy. Moderate left neural can al narrowing at C4-C5 secondary to posterior disc osteophyte complex. Neck soft tissues: Prevertebral soft tissues are within normal limits. Other: The airway is patent. The lung apices are clear. Post surgical changes from left mastoidectomy . Vascular sclerosis identified. IMPRESSION: 1. No evidence of cervical spine fracture. 2. Mild multilevel degenerative disc disease with moderate narrowing of the right C2-C3 neural canal and left C4-C5 neural canal.
--- NOTE | 2021-10-25 15:43 | CT ---
EXAMINATION TYPE: CT lumbar spine wo con CT DLP: 623.10 mGycm, Automated exposure control for dose reduction was used. DATE OF EXAM: 10/25/2021 2:54 PM COMPARISON: Lumbar spine radiograph 01/12/2021. CLINICAL INDICATION:Male, 61 years old with history of M54.2 Cervicalgia, M54.50 Lowback pain; PHH, l ower back pain TECHNIQUE: Multiple axial images were obtained from the midportion of T11 through the sacroiliac gus nts. Soft tissue and bone windows in coronal and sagittal planes were obtained and reviewed. 3-D ref ormats of the bones were created on a separate workstation and submitted for review. FINDINGS: Alignment: There are 5 lumbar type vertebral bodies within normal alignment. Bone: No evidence of fracture is identified. Discs: T11-T12: Right subarticular disc herniation with mild effacement of the anterior thecal sac. The neur al foramina are patent bilaterally. T12-L1: No spinal canal or neural foraminal stenosis is identified. L1-L2: No spinal canal or neural foraminal stenosis is identified. L2-L3: No spinal canal or neural foraminal stenosis is identified. L3-L4: Broad-based disc bulge with mild effacement of the intrathecal sac. Mild right neural foramina l narrowing. Left neuroforamen is patent. L4-L5: Broad-based disc bulge with mild effacement of the intrathecal sac. No neural foraminal steno sis. L5-S1: No spinal canal or neural foraminal stenosis is identified. Other: Mild vascular calcifications of the aorta and its branches. The colonic diverticulosis without evidence for acute diverticulitis. IMPRESSION: 1. No evidence of fracture of the lumbar spine. 2. T11-T12 disc herniation with mild canal stenosis. 3. Mild degenerative disc disease as described above.
== END | disposition home or self-care (01) ==
LOC: RADCTMAIN 14:02
PROVIDERS: ATTEND Psychiatry & Neurology Neurology
DX: M50.121 Cervical disc disorder at C4-C5 level with radiculopathy (principal); M47.812 Spondylosis without myelopathy or radiculopathy, cervical region; M51.24 Other intervertebral disc displacement, thoracic region; M48.04 Spinal stenosis, thoracic region
CPT/HCPCS: 72125; 72131

== ENCOUNTER 2021-10-29 22:44 | Emergency (ER) | payer OTHER ==
--- NOTE | 2021-10-29 23:18 | ED ---
Alcohol HPI - General Stated Complaint: ETOH Time Seen by Provider: 10/29/21 22:54 - Related Data Home Medications Medication Instructions Recorded Confirmed HYDROcodone/APAP 10-325MG [[place] 1 tab PO QID 04/02/14 06/22/21 10-325] Gabapentin [Neurontin] 300 mg PO TID 08/11/20 06/22/21 Aspirin [Vazalore] 81 mg PO DAILY 06/21/21 06/21/21 Previous Rx's Medication Instructions Recorded Sulfamethox-Tmp 800-160Mg [Bactrim 2 each PO Q12HR #40 tab 10/08/21 DS 800-160 mg] Allergies Allergy/AdvReac Type Severity Reaction Status Date / Time No Known Allergies Allergy Verified 10/08/21 14:56 Review of Systems ROS Statement: Those systems with pertinent positive or pertinent negative responses have been documented in the HPI. ROS Other: All systems not noted in ROS Statement are negative. Past Medical History Past Medical History: Coronary Artery Disease (CAD), Chest Pain / Angina, Diabetes Mellitus, Hyperlipidemia, Hypertension, Myocardial Infarction ([place]), Osteoarthritis (OA) Additional Past Medical History / Comment(s): recent blood in stool, hemmoroids, Hx diverticulitis, hx colon polyps, SOB, chronic back pain. States does not take any medication for Diabetes or hypertension, states "I don't believe in that stuff and don't like the way it makes me feel." Saw guide escort recently and agreed to take aspirin, has had abscess removed from scrotum and buttock Last Myocardial Infarction Date:: 07-28-16 History of Any Multi-Drug Resistant Organisms: None Reported Past Surgical History: Heart Catheterization, Heart Catheterization With Stent, Orthopedic Surgery Additional Past Surgical History / Comment(s): Colonoscopy, eye surgery, right knee surgery, 5 left ear surgeries, (for benign cholesteatoma) has 2 stents total. had angioplasty 09/30/19 Past Anesthesia/Blood Transfusion Reactions: Motion Sickness Date of Last Stent Placement:: 09/28? Past Psychological History: Bipolar, Depression, Schizophrenia Smoking Status: Current every day smoker Past Alcohol Use History: None Reported Past Drug Use History: Marijuana - Past Family History Mother History Unknown: Yes Family Medical History: Unable to Obtain Father History Unknown: Yes Family Medical History: Unable to Obtain Course Vital Signs 10/29/21 23:00 Temperature 98.1 F Pulse Rate 116 H Respiratory 20 Rate Blood Pressure 125/89 O2 Sat by Pulse 96 Oximetry Medical Decision Making - Lab Data Lab Results 10/30/21 Range/Units 00:15 Urine Color Yellow Urine Appearance Clear (Clear) Urine pH 6.0 (5.0-8.0) Ur Specific [place] 1.021 (1.001-1.035) Urine Protein 1+ H (Negative) Urine Glucose (UA) 1+ H (Negative) Urine Ketones Negative (Negative) Urine Blood Negative (Negative) Urine Nitrite Negative (Negative) Urine Bilirubin Negative (Negative) Urine Urobilinogen <2.0 (<2.0) mg/dL Ur Leukocyte Esterase Negative (Negative) Urine RBC 1 (0-5) /hpf Urine WBC 1 (0-5) /hpf Hyaline Casts 3 H (0-2) /lpf Urine Mucus Few H (None) /hpf Urine Opiates Screen Detected H (NotDetected) Ur Oxycodone Screen Not Detected (NotDetected) Urine Methadone Screen Not Detected (NotDetected) Ur Propoxyphene Screen Not Detected (NotDetected) Ur Barbiturates Screen Not Detected (NotDetected) U Tricyclic Antidepress Not Detected (NotDetected) Ur Phencyclidine Scrn Not Detected (NotDetected) Ur Amphetamines Screen Not Detected (NotDetected) U Methamphetamines Scrn Not Detected (NotDetected) U Benzodiazepines Scrn Not Detected (NotDetected) Urine Cocaine Screen Not Detected (NotDetected) U Marijuana (THC) Screen Detected H (NotDetected) Disposition Clinical Impression: Psychiatric disorder, Personality disorder Disposition: HOME SELF-CARE Condition: Good Instructions (If sedation given, give patient instructions): Mood Disorders (ED) Is patient prescribed a controlled substance at d/c from ED?: No Referrals: [facility] [Primary Care Provider] - 1-2 days
[2021-10-29 23:34] VITALS: PULSE 116; RESP 20; TEMP 98.1
[2021-10-30 00:47] LABS: Amphetamine Screen,Urine Not Detected (NotDetected); Barbiturate Screen,Urine Not Detected (NotDetected); Benzodiazepines Screen,Urine Not Detected (NotDetected); Cocaine Screen,Urine Not Detected (NotDetected); Methadone Screen, Urine Not Detected (NotDetected); Opiate Screen,Urine Detected (NotDetected); Oxycodone Screen, Urine Not Detected (NotDetected); Phencyclidine Screen,Urine Not Detected (NotDetected); Tricyclic Antidepressant,Urine Not Detected (NotDetected); Urn Cannabinoid Scrn Detected (NotDetected)
[2021-10-30 00:48] LABS: Appearance,Urine Clear (Clear); Bilirubin,Urine Negative (Negative); Blood,Urine Negative (Negative); Color,Urine Yellow; Glucose,Urine (UA) 1+ (Negative); Hyaline Casts,Urine 3 /lpf (0-2); Ketones,Urine Negative (Negative); Leukocyte Esterase,Urine Negative (Negative); Mucus,Urine Few /hpf; Nitrite,Urine Negative (Negative); Protein,Urine 1+ (Negative); RBC,Urine 1 /hpf (0-5); Specific Gravity,Urine 1.021 (1.001-1.035); Urobilinogen,Urine <2.0 mg/dL (<2.0); WBC,Urine 1 /hpf (0-5)
[2021-10-30 01:51] VITALS: BP 122/69
== END 2021-10-30 02:05 | disposition home or self-care (01) ==
LOC: EC 22:44
DX: F99 Mental disorder, not otherwise specified (principal); F60.9 Personality disorder, unspecified
CPT/HCPCS: 80306; 81001; 82075; 99283

== ENCOUNTER → 2021-11-09 | Outpatient (CLI) | payer OTHER | END | disposition home or self-care (01) | LOC: LABWHC1 15:54 | PROVIDERS: ATTEND Ophthalmology | DX: E11.9 Type 2 diabetes mellitus without complications (principal) | CPT/HCPCS: 36415; 83036 ==

== ENCOUNTER → 2022-09-13 | Outpatient (CLI) | payer OTHER ==
--- NOTE | 2022-09-14 07:32 | XR ---
EXAMINATION TYPE: XR chest 2V DATE OF EXAM: 09/13/2022 COMPARISON: 07/28/2016 HISTORY: Shortness of breath TECHNIQUE: Frontal and lateral views of the chest are obtained. FINDINGS: Scattered senescent parenchymal changes noted. Hyperinflation compatible with COPD. No evidence for infiltrate. No evidence for atelectasis. Heart size is stable. Mediastinal structures are stable and grossly unremarkable. No evidence for hilar prominence. Degenerative changes dorsal spine. IMPRESSION: 1. No evidence for acute pulmonary disease.
--- NOTE | 2022-09-14 07:33 | XR ---
EXAMINATION TYPE: XR calcaneus 2V LT DATE OF EXAM: 09/13/2022 CLINICAL HISTORY: pain TECHNIQUE: 2 views of the left os calcis are submitted. COMPARISON: None. FINDINGS: There is no acute fracture/dislocation evident. The joint spaces appear within normal aceves its. The overlying soft tissue appears unremarkable. IMPRESSION: There is no acute fracture or dislocation. ICD 10 NO FRACTURE, INITIAL EVALUATION
== END | disposition home or self-care (01) ==
LOC: RADXRMAIN 17:54
PROVIDERS: ATTEND Nurse Practitioner
DX: M79.672 Pain in left foot (principal); R06.02 Shortness of breath
CPT/HCPCS: 71046

== ENCOUNTER 2022-10-18 22:33 | Observation (INO) | payer OTHER ==
[2022-10-18 23:38] LABS: Basophils % (A) 0 %; Eosinophils # (A) 0.2 k/uL (0-0.7); Eosinophils % (A) 2 %; HCT 38.1 % (39.0-53.0); HGB 13.3 gm/dL (13.0-17.5); Lymphocytes % (A) 26 %; MCH 33.5 pg (25.0-35.0); MCHC 34.8 g/dL (31.0-37.0); MCV 96.2 fL (80.0-100.0); Mean Platelet Volume 9.8; Monocytes # (A) 0.5 k/uL (0-1.0); Monocytes % (A) 7 %; Neutrophils # (A) 4.9 k/uL (1.3-7.7); Neutrophils % (A) 63 %; Platelet Count 155 k/uL (150-450); RBC 3.96 m/uL (4.30-5.90); RDW 12.7 % (11.5-15.5); WBC 7.8 k/uL (3.8-10.6)
[2022-10-18 23:49] LABS: ALT 17 U/L (4-49); AST 22 U/L (17-59); African American GFR (CKD) >90 (>60 ml/min/1.73 sqM); Albumin 3.3 g/dL (3.5-5.0); Alkaline Phosphatase 74 U/L (38-126); Anion Gap 5 mmol/L; Blood Urea Nitrogen 20 mg/dL (9-20); Calcium 8.6 mg/dL (8.4-10.2); Carbon Dioxide 28 mmol/L (22-30); Chloride 106 mmol/L (98-107); Glucose 253 mg/dL (74-99); Non-African American GFR(CKD) >90 (>60 ml/min/1.73 sqM); Potassium 4.5 mmol/L (3.5-5.1); Sodium 139 mmol/L (137-145); Total Bilirubin 0.3 mg/dL (0.2-1.3); Total Protein 6.1 g/dL (6.3-8.2)
[2022-10-19] MEDS ORDERED: VANCOMYCIN IV PER PHARMACY 1 EACH MISC MISCELLANE PRN (01:14)
--- NOTE | 2022-10-19 01:29 | XR ---
EXAM: XR Right Hand Complete, 3 or More Views CLINICAL HISTORY: ITS.REASON XR Reason: fall red swollen large lac to right hand + draina TECHNIQUE: Frontal, lateral and oblique views of the right hand. COMPARISON: No relevant prior studies available. FINDINGS: Bones/joints: No acute fracture. No dislocation. Soft tissues: 2 tiny foci of radiopaque objects identified adjacent to the fifth metacarpal. IMPRESSION: No acute osseous abnormalities. 2 tiny foci of radiopaque objects identified adjacent to the fifth metacarpal.
[2022-10-19] MEDS: AMPICILLIN-SULBACTAM 3 GM in SODIUM CHLORIDE 0.9% 100 ML IVPB SCH ×4 (01:34→19:54)
[2022-10-19] MEDS ORDERED: HYDROcodone/APAP 5-325MG 1 EACH TAB PO PRN (01:51)
[2022-10-19] MEDS ORDERED: MORPHINE SULFATE 4 MG/ML SYRINGE IV PRN (01:51)
[2022-10-19] MEDS ORDERED: NALOXONE 0.4 MG/ML 1 ML VIAL IV PRN (01:51)
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
[2022-10-19] MEDS ORDERED: SODIUM CHLORIDE 0.9% 1,000 ML IV SCH (02:00)
[2022-10-19] MEDS ORDERED: VANCOMYCIN 1,000 MG in SODIUM CHLORIDE 0.9% 250 ML IVPB ONE (02:00)
[2022-10-19] MEDS ORDERED: DIPH,PERTUS(ACELL)TETVAC-LF 0.5 ML VIAL IM ONE (03:23)
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
[2022-10-19] MEDS: INSULIN ASPART (NovoLOG) 100 UNIT/ML VIAL SQ SCH ×4 (08:14→22:15)
[2022-10-19] MEDS: NICOTINE 14MG/24HR PATCH TRANSDERM SCH ×2 (08:16→16:22)
[2022-10-19] MEDS: HEPARIN SODIUM,PORCINE/PF 5,000 UNIT/0.5 ML SYRINGE SQ SCH ×2 (08:16→17:32)
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
[2022-10-19] MEDS: HYDROcodone/APAP 10-325MG 1 EACH TAB PO SCH ×2 (11:50→18:26)
[2022-10-19] MEDS: GABAPENTIN 300 MG CAP PO SCH ×3 (11:50→22:15)
[2022-10-19] MEDS: VANCOMYCIN 1,250 MG in SODIUM CHLORIDE 0.9% 250 ML IVPB SCH (13:00)
[2022-10-19] MEDS ORDERED: VANCOMYCIN 1,000 MG in SODIUM CHLORIDE 0.9% 250 ML IVPB SCH (15:00)
[2022-10-19 21:19] LABS: Glucose,Whole Blood 212 mg/dL (70-110)
[2022-10-19] MEDS: BRIMONIDINE TARTRATE 0.2% DROPS 5 ML BTL LEFT EYE SCH (22:14)
[2022-10-20] MEDS: HEPARIN SODIUM,PORCINE/PF 5,000 UNIT/0.5 ML SYRINGE SQ SCH ×3 (00:03→16:40)
[2022-10-20] MEDS: VANCOMYCIN 1,250 MG in SODIUM CHLORIDE 0.9% 250 ML IVPB SCH ×2 (00:04→11:57)
[2022-10-20] MEDS: AMPICILLIN-SULBACTAM 3 GM in SODIUM CHLORIDE 0.9% 100 ML IVPB SCH ×4 (02:38→21:37)
[2022-10-20 06:14] LABS: Basophils % (A) 0 %; Eosinophils # (A) 0.2 k/uL (0-0.7); Eosinophils % (A) 2 %; HCT 36.5 % (39.0-53.0); HGB 12.4 gm/dL (13.0-17.5); Lymphocytes # (A) 2.2 k/uL (1.0-4.8); Lymphocytes % (A) 29 %; MCH 32.6 pg (25.0-35.0); Mean Platelet Volume 10.1; Monocytes # (A) 0.6 k/uL (0-1.0); Monocytes % (A) 8 %; Neutrophils # (A) 4.5 k/uL (1.3-7.7); Neutrophils % (A) 60 %; Platelet Count 157 k/uL (150-450); RDW 12.9 % (11.5-15.5); WBC 7.6 k/uL (3.8-10.6)
[2022-10-20 06:17] LABS: Glucose,Whole Blood 159 mg/dL (70-110)
[2022-10-20 06:27] LABS: African American GFR (CKD) >90 (>60 ml/min/1.73 sqM); Anion Gap 3 mmol/L; Blood Urea Nitrogen 17 mg/dL (9-20); Calcium 8.4 mg/dL (8.4-10.2); Carbon Dioxide 27 mmol/L (22-30); Chloride 106 mmol/L (98-107); Glucose 144 mg/dL (74-99); Non-African American GFR(CKD) >90 (>60 ml/min/1.73 sqM); Potassium 3.9 mmol/L (3.5-5.1); Sodium 136 mmol/L (137-145)
[2022-10-20] MEDS: INSULIN ASPART (NovoLOG) 100 UNIT/ML VIAL SQ SCH ×4 (06:31→21:44)
[2022-10-20] MEDS ORDERED: LACTATED RINGERS 1,000 ML IV ONE (08:08)
[2022-10-20] MEDS ORDERED: PROPOFOL 10 MG/ML 20 ML VIAL IV ONE (08:10)
[2022-10-20] MEDS ORDERED: SUCCINYLCHOLINE CHLORIDE 200 MG/10 ML VIAL IV ONE (08:10)
[2022-10-20] MEDS ORDERED: PHENYLEPHRINE-0.9% NACL SYG 1,000 MCG/10 ML SYRINGE ONE (08:10)
[2022-10-20] MEDS ORDERED: fentaNYL (PF) 50 MCG/ML 2 ML AMP ONE (08:10)
[2022-10-20] MEDS ORDERED: LIDOCAINE 2% INJ 20 MG/ML (2 ML VIAL) ONE (08:10)
[2022-10-20] MEDS ORDERED: MIDAZOLAM 2 MG/2 ML VIAL ONE (08:10)
[2022-10-20] MEDS ORDERED: HYDROmorphone 0.5 MG/0.5 ML SYRINGE IVP ONE ×2 (09:16→09:21)
[2022-10-20 09:31] LABS: Glucose,Whole Blood 180 mg/dL (70-110)
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
[2022-10-20] MEDS: GABAPENTIN 300 MG CAP PO SCH ×4 (10:18→21:42)
[2022-10-20] MEDS: HYDROcodone/APAP 10-325MG 1 EACH TAB PO SCH ×3 (10:18→21:42)
[2022-10-20] MEDS: BRIMONIDINE TARTRATE 0.2% DROPS 5 ML BTL LEFT EYE SCH ×2 (10:27→21:41)
[2022-10-20] MEDS ORDERED: SENNOSIDES-DOCUSATE SODIUM 1 EACH TAB PO PRN (10:54)
[2022-10-20] MEDS ORDERED: HYDROmorphone 0.5 MG/0.5 ML SYRINGE IVP PRN ×3 (10:54)
[2022-10-20] MEDS ORDERED: HYDROcodone/APAP 5-325MG 1 EACH TAB PO PRN ×2 (10:54)
[2022-10-20] MEDS ORDERED: diphenhydrAMINE 25 MG CAP PO PRN (10:54)
[2022-10-20] MEDS ORDERED: ONDANSETRON 4 MG/2 ML VIAL IVP PRN (10:54)
[2022-10-20 11:23] LABS: Glucose,Whole Blood 220 mg/dL (70-110)
[2022-10-20] MEDS: LACTATED RINGERS 1,000 ML IV SCH ×2 (12:03→21:45)
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
[2022-10-20] MEDS: NICOTINE 14MG/24HR PATCH TRANSDERM SCH (15:28)
[2022-10-20 16:36] LABS: Glucose,Whole Blood 222 mg/dL (70-110)
--- NOTE | 2022-10-20 19:08 | P.PN ---
Progress Note - Text Progress Note Date: 10/20/22 Phone call from the nursing staff stating that the patient is extremely anxious and pacing the hallways. He is talking to himself and is refusing any medication for his anxiety. The patient told nursing staff that they should probably call security because he was going to "lose it soon". He is asking to be discharged or he's going to leave AMA. One of the Nurses on staff knows him and is trying to calm him down a bit.They are trying to get him to stay at least tonight so that we can arrange for outpatient antibiotics and prescriptions. A psychiatric consult was ordered on day of admission but was subsequently canceled. He has not been seen by psychiatry during this stay.
[2022-10-20 21:00] LABS: Glucose,Whole Blood 146 mg/dL (70-110)
[2022-10-20] MEDS ORDERED: VANCOMYCIN TROUGH DUE 1 EACH MISC MISCELLANE ONE (23:00)
[2022-10-21] MEDS: VANCOMYCIN 1,250 MG in SODIUM CHLORIDE 0.9% 250 ML IVPB SCH ×2 (00:39→12:23)
[2022-10-21] MEDS: HEPARIN SODIUM,PORCINE/PF 5,000 UNIT/0.5 ML SYRINGE SQ SCH ×3 (00:41→15:17)
[2022-10-21] MEDS: AMPICILLIN-SULBACTAM 3 GM in SODIUM CHLORIDE 0.9% 100 ML IVPB SCH ×2 (03:18→09:02)
[2022-10-21 06:15] LABS: Glucose,Whole Blood 216 mg/dL (70-110)
[2022-10-21] MEDS: INSULIN ASPART (NovoLOG) 100 UNIT/ML VIAL SQ SCH ×4 (06:17→22:50)
[2022-10-21 08:41] LABS: BUN/Creat Ratio 20.78 Ratio (12.00-20.00); Blood Urea Nitrogen 18.7 mg/dL (9.0-27.0); Carbon Dioxide 26.7 mmol/L (21.6-31.8); Chloride 106 mmol/L (96-109); Glucose 196 mg/dL (70-110); Potassium 4.1 mmol/L (3.5-5.5); Sodium 143 mmol/L (135-145)
[2022-10-21] MEDS: HYDROcodone/APAP 10-325MG 1 EACH TAB PO SCH ×3 (09:00→22:50)
[2022-10-21] MEDS: BRIMONIDINE TARTRATE 0.2% DROPS 5 ML BTL LEFT EYE SCH ×2 (09:02→22:59)
[2022-10-21] MEDS: LACTATED RINGERS 1,000 ML IV SCH ×2 (09:02→17:44)
[2022-10-21] MEDS: GABAPENTIN 300 MG CAP PO SCH ×4 (09:02→22:50)
--- NOTE | 2022-10-21 09:08 | P.PN ---
Subjective Progress Note Date: 10/21/22 Principal diagnosis: Infection right hand. Status post irrigation and debridement right hand. This is a 62-year-old male who is postoperative day #1 status post irrigation and debridement of his right hand contaminated wound. The patient was attempting to leave AMA last evening. He was convinced to stay through the night. He is sleeping soundly this morning and was very agitated when I walk and mop for a dressing change. He is refusing the dressing change and states that he is leaving today. His vital signs are stable. Gram stain's showing few gram-positive cocci. Blood culture is negative at 48 hours. Objective - Vital Signs Vital signs: Vital Signs Temp 98.5 F 10/21/22 00:38 Pulse 69 10/21/22 00:38 Resp 17 10/21/22 00:38 BP 182/87 10/21/22 00:38 Pulse Ox 98 10/21/22 00:38 FiO2 Intake & Output 10/20/22 10/21/22 10/21/22 18:59 06:59 18:59 Intake Total 1050 Output Total 5 Balance 1045 Intake: IV 700 Oral 350 Output: Estimated Blood Loss 5 Other: Voiding Method Toilet # Voids 2 3 - Exam The patient is refusing an exam at this time. I can see that his dressing is clean, dry and intact. He appears to be moving his fingers well. - Labs CBC & Chem 7: 10/20/22 05:17 10/21/22 05:10 Labs: Abnormal Lab Results - Last 24 Hours (Table) 10/20/22 10/20/22 10/20/22 Range/Units 09:30 11:21 16:22 BUN/Creatinine Ratio (12.00-20.00) Ratio Glucose (70-110) mg/dL POC Glucose (mg/dL) 180 H 220 H 222 H (70-110) mg/dL 10/20/22 10/21/22 10/21/22 Range/Units 20:59 05:10 06:11 BUN/Creatinine Ratio 20.78 H (12.00-20.00) Ratio Glucose 196 H (70-110) mg/dL POC Glucose (mg/dL) 146 H 216 H (70-110) mg/dL Microbiology - Last 24 Hours (Table) 10/18/22 23:10 Blood Culture - Preliminary Blood 10/18/22 23:00 Blood Culture - Preliminary Blood 10/20/22 08:50 Gram Stain - Preliminary Hand - Right 10/20/22 08:50 Gram Stain - Preliminary Hand - Right Assessment and Plan (1) Laceration of right hand with complication Current Visit: Yes Status: Acute Code(s): S61.411A - LACERATION WITHOUT FOREIGN BODY OF RIGHT HAND, INIT ENCNTR SNOMED Code(s): 369623351 (2) Laceration of right hand with infection Current Visit: Yes Status: Acute Code(s): S61.411A - LACERATION WITHOUT FOREIGN BODY OF RIGHT HAND, INIT ENCNTR; L08.9 - LOCAL INFECTION OF THE SKIN AND SUBCUTANEOUS TISSUE, UNSP SNOMED Code(s): 953638986 (3) Cellulitis Current Visit: Yes Status: Acute Code(s): L03.90 - CELLULITIS, UNSPECIFIED SNOMED Code(s): 723581970 Plan: The clinical findings are discussed with the patient. I urged him to continue his course of IV antibiotics and await final cultures so that he may be evalua zachariah by infectious disease. The patient states that he is leaving today. A prescription for Augmentin was sent to [facility] pharmacy last evening. I advised the patient that there is risk for further infection to his hand possible loss of part of his hand if he does not continue with current therapy.
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
[2022-10-21] MEDS: NICOTINE 14MG/24HR PATCH TRANSDERM SCH ×2 (09:22→16:08)
[2022-10-21 09:28] LABS: Basophils # (A) 0.05 X 10*3/uL (0.00-0.10); Basophils % (A) 0.7 %; Eosinophils # (A) 0.15 X 10*3/uL (0.04-0.35); HCT 37.1 % (39.6-50.0); HGB 12.7 d/dL (12.0-15.0); Lymphocytes # (A) 2.15 X 10*3/uL (0.90-5.00); Lymphocytes % (A) 28.5 %; MCH 32.7 pg (27.0-32.0); MCHC 34.2 d/dL (32.0-37.0); MCV 95.6 FL (80.0-97.0); Mean Platelet Volume 12.6 FL (9.5-12.2); Monocytes # (A) 0.83 X 10*3/uL (0.20-1.00); NRBC Per 100 WBC 0 X 10*3/uL (0.00-0.01); Neutrophils # (A) 4.34 X 10*3/uL (1.80-7.70); Neutrophils % (A) 57.5 %; Platelet Count 178 X 10*3/uL (140-440); RBC 3.88 X 10*6/uL (4.40-5.60); RDW 12.5 % (11.5-14.5); WBC 7.54 X 10*3/uL (4.50-10.00)
[2022-10-21] MEDS ORDERED: PIPERACILLIN-TAZOBACTAM 3.375 GM in SODIUM CHLORIDE 0.9% 100 ML IVPB STA (12:04)
[2022-10-21 12:17] LABS: Glucose,Whole Blood 130 mg/dL (70-110)
[2022-10-21] MEDS ORDERED: hydrOXYzine pamoate 25 MG CAP PO PRN (15:33)
[2022-10-21 16:29] LABS: Glucose,Whole Blood 201 mg/dL (70-110)
[2022-10-21] MEDS: PIPERACILLIN-TAZOBACTAM 3.375 GM in SODIUM CHLORIDE 0.9% 100 ML IVPB SCH ×2 (17:34→22:52)
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
[2022-10-21 19:26] LABS: Glucose,Whole Blood 198 mg/dL (70-110)
[2022-10-21 20:27] VITALS: BP 178/77; PULSE 60; RESP 18; TEMP 98.3
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
[2022-10-22] MEDS: HEPARIN SODIUM,PORCINE/PF 5,000 UNIT/0.5 ML SYRINGE SQ SCH ×3 (01:08→11:49)
[2022-10-22] MEDS: LACTATED RINGERS 1,000 ML IV SCH (04:28)
[2022-10-22 06:47] LABS: Glucose,Whole Blood 256 mg/dL (70-110)
[2022-10-22] MEDS: INSULIN ASPART (NovoLOG) 100 UNIT/ML VIAL SQ SCH ×2 (06:49→11:48)
[2022-10-22 08:04] LABS: African American GFR (CKD) 82 (>60 ml/min/1.73 sqM); Non-African American GFR(CKD) 71 (>60 ml/min/1.73 sqM)
[2022-10-22] MEDS: HYDROcodone/APAP 10-325MG 1 EACH TAB PO SCH (09:17)
[2022-10-22] MEDS: GABAPENTIN 300 MG CAP PO SCH ×2 (09:18→12:34)
[2022-10-22] MEDS: PIPERACILLIN-TAZOBACTAM 3.375 GM in SODIUM CHLORIDE 0.9% 100 ML IVPB SCH (09:19)
[2022-10-22] MEDS: BRIMONIDINE TARTRATE 0.2% DROPS 5 ML BTL LEFT EYE SCH (10:52)
[2022-10-22 11:41] LABS: Glucose,Whole Blood 123 mg/dL (70-110)
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
--- NOTE | 2022-10-22 13:36 | P.PN ---
Subjective Progress Note Date: 10/22/22 This is a 62-year-old male who was status post irrigation and debridement of his right hand. This is postoperative day #2. Patient is seen and evaluated at bedside today. Patient denies any new complaints today. Objective - Vital Signs Vital signs: Vital Signs Temp 98.3 F 10/21/22 07:40 Pulse 60 10/22/22 07:25 Resp 18 10/22/22 07:25 BP 178/77 10/21/22 07:40 Pulse Ox 96 10/21/22 07:40 FiO2 Intake & Output 10/21/22 10/22/22 10/22/22 18:59 06:59 18:59 Intake Total 1080 Balance 1080 Intake: Oral 1080 Other: Voiding Method Toilet # Voids 3 2 - Exam On exam dressing is removed revealing a healing wound to the right hand. There is no significant erythema or active drainage. Minimal swelling. Patient has good range of motion of the fingers of the right hand. Sensation intact. Neurovascular status and circulatory status are intact. - Labs CBC & Chem 7: 10/21/22 05:10 10/22/22 06:41 Labs: Abnormal Lab Results - Last 24 Hours (Table) 10/21/22 10/21/22 10/22/22 Range/Units 16:27 19:13 06:45 POC Glucose (mg/dL) 201 H 198 H 256 H (70-110) mg/dL 10/22/22 Range/Units 11:33 POC Glucose (mg/dL) 123 H (70-110) mg/dL Microbiology - Last 24 Hours (Table) 10/20/22 08:50 Gram Stain - Preliminary Hand - Right Wound Culture - Preliminary Leclericia adecarboxylata Escherichia coli Presumptive MRSA 10/20/22 08:50 Gram Stain - Preliminary Hand - Right Wound Culture - Preliminary Leclericia adecarboxylata Escherichia coli Presumptive MRSA 10/18/22 23:10 Blood Culture - Preliminary Blood 10/18/22 23:00 Blood Culture - Preliminary Blood Assessment and Plan Assessment: Status post irrigation and debridement of right hand wound. Plan: 1. Daily wet-to-dry dressing changes. 2. Antibiotics per infectious disease. 3. Patient is being discharged home on oral antibiotics per infectious disease today.
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
== END 2022-10-22 15:34 | disposition home or self-care (01) ==
LOC: SUPCPDRO 22:33 → EC 22:33 → INTOOBSV 10-19 01:56 → 4SSUR 10-19 01:56 → UNDODISIN 10-22 15:34
PROVIDERS: ADMIT Internal Medicine; ATTEND Internal Medicine
DX: L03.113 Cellulitis of right upper limb (principal); S66.326A Laceration of extensor muscle, fascia and tendon of right little finger at wrist and hand level, initial encounter; L02.511 Cutaneous abscess of right hand; E11.9 Type 2 diabetes mellitus without complications; I10 Essential (primary) hypertension; E78.5 Hyperlipidemia, unspecified; F31.9 Bipolar disorder, unspecified; F32.A Depression, unspecified; F20.9 Schizophrenia, unspecified; F17.200 Nicotine dependence, unspecified, uncomplicated; F12.90 Cannabis use, unspecified, uncomplicated; I25.10 Atherosclerotic heart disease of native coronary artery without angina pectoris; M54.9 Dorsalgia, unspecified; G89.29 Other chronic pain; B96.20 Unspecified Escherichia coli [E. coli] as the cause of diseases classified elsewhere; I25.2 Old myocardial infarction; Z79.82 Long term (current) use of aspirin; Z82.5 Family history of asthma and other chronic lower respiratory diseases; Z79.4 Long term (current) use of insulin; Z23 Encounter for immunization; Z91.148 Patient's other noncompliance with medication regimen for other reason; Z95.5 Presence of coronary angioplasty implant and graft; Z79.899 Other long term (current) drug therapy; V87.8XXA Person injured in other specified noncollision transport accidents involving motor vehicle (traffic), initial encounter; Y93.55 Activity, bike riding
CPT/HCPCS: 96376; 96361 ×3; 96366 ×5; 96367 ×2; 96372; 90471; 96365 ×2; 99285; 36415; 80053; 80048 ×2; 82565; 85025 ×3; 80202; 87040; 87070; 87205; 87075; 87077; 87186; 73130; 90715; 10060; 26418; G0378 ×4; S4990 ×3; J2543 ×2; J2250; J3370 ×3; J0330; J3010; J0295 ×3; J2370; J2704; J1170; J1644; J2001

== ENCOUNTER 2023-01-02 20:03 | Emergency (ER) | payer OTHER ==
[2023-01-02 20:14] LABS: Glucose,Whole Blood 312 mg/dL (70-110)
[2023-01-02 20:18] VITALS: TEMP 98.7
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
[2023-01-02 20:32] LABS: Basophils % (A) 0 %; Eosinophils # (A) 0.2 k/uL (0-0.7); Eosinophils % (A) 2 %; HCT 41.8 % (39.0-53.0); Lymphocytes # (A) 2.8 k/uL (1.0-4.8); Lymphocytes % (A) 31 %; MCH 32.4 pg (25.0-35.0); MCHC 33.5 g/dL (31.0-37.0); MCV 96.6 fL (80.0-100.0); Mean Platelet Volume 9.5; Monocytes # (A) 0.5 k/uL (0-1.0); Monocytes % (A) 6 %; Neutrophils # (A) 5.2 k/uL (1.3-7.7); Neutrophils % (A) 58 %; Platelet Count 152 k/uL (150-450); RBC 4.33 m/uL (4.30-5.90); RDW 12.3 % (11.5-15.5)
[2023-01-02 20:44] LABS: ALT 19 U/L (4-49); AST 26 U/L (17-59); African American GFR (CKD) >90 (>60 ml/min/1.73 sqM); Albumin 3.6 g/dL (3.5-5.0); Alcohol <10 mg/dL; Alkaline Phosphatase 72 U/L (38-126); Anion Gap 5 mmol/L; Blood Urea Nitrogen 23 mg/dL (9-20); Calcium 9.2 mg/dL (8.4-10.2); Carbon Dioxide 27 mmol/L (22-30); Chloride 104 mmol/L (98-107); Glucose 280 mg/dL (74-99); Non-African American GFR(CKD) 80 (>60 ml/min/1.73 sqM); Sodium 136 mmol/L (137-145); Total Bilirubin 0.4 mg/dL (0.2-1.3); Total Protein 6.4 g/dL (6.3-8.2)
[2023-01-02 20:49] LABS: INR 0.9 (<1.2)
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
[2023-01-02 21:18] LABS: Partial Thromboplastin Time 21.3 sec (22.0-30.0)
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
[2023-01-02 22:19] LABS: Cocaine Screen,Urine Not Detected (NotDetected); Phencyclidine Screen,Urine Not Detected (NotDetected); Urn Cannabinoid Scrn Detected (NotDetected)
[2023-01-02 22:20] LABS: Amphetamine Screen,Urine Not Detected (NotDetected); Barbiturate Screen,Urine Not Detected (NotDetected); Benzodiazepines Screen,Urine Not Detected (NotDetected); Methadone Screen, Urine Not Detected (NotDetected); Opiate Screen,Urine Detected (NotDetected); Oxycodone Screen, Urine Not Detected (NotDetected); Tricyclic Antidepressant,Urine Not Detected (NotDetected)
[2023-01-02 22:50] VITALS: BP 181/90; PULSE 72; RESP 18
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
== END 2023-01-02 22:43 | disposition home or self-care (01) ==
LOC: EC 20:03
DX: S40.012A Contusion of left shoulder, initial encounter (principal); S00.03XA Contusion of scalp, initial encounter; I25.10 Atherosclerotic heart disease of native coronary artery without angina pectoris; E11.9 Type 2 diabetes mellitus without complications; I10 Essential (primary) hypertension; I25.2 Old myocardial infarction; M19.90 Unspecified osteoarthritis, unspecified site; F17.210 Nicotine dependence, cigarettes, uncomplicated; F12.90 Cannabis use, unspecified, uncomplicated; Z79.1 Long term (current) use of non-steroidal anti-inflammatories (NSAID); Z86.59 Personal history of other mental and behavioral disorders; X58.XXXA Exposure to other specified factors, initial encounter; Y93.55 Activity, bike riding
CPT/HCPCS: 36415; 93005; 86900; 86901; 80053; 84484; 85025; 85610; 85730; 86850; 80306; 72170; 73030; 71045; 72125; 70450; 99291; G0480; 80320

== ENCOUNTER → 2023-06-04 | Outpatient (CLI) | payer OTHER ==
[2023-06-05 02:50] LABS: Chol/HDL Ratio 5.18 Ratio; LDL Cholesterol,Calculated 137.6 mg/dL (0.0-131.0); Magnesium 1.9 mg/dL (1.5-2.4)
== END | disposition home or self-care (01) ==
LOC: LABWHC1 15:35
PROVIDERS: ATTEND Student in an Organized Health Care Education/Training Program
DX: E11.40 Type 2 diabetes mellitus with diabetic neuropathy, unspecified (principal); E78.2 Mixed hyperlipidemia; E55.9 Vitamin D deficiency, unspecified
CPT/HCPCS: 36415; 80061; 82306; 82607; 83036; 83735

== ENCOUNTER 2023-06-17 07:03 | Day surgery (SDC) | payer OTHER ==
[2023-06-12 12:45] VITALS: BMI 22.7
[~2023-06-17 07:03] MED LIST changes: -ACETAMINOPHEN TAB 500 MG TAB PO PRN; -HEPARIN SODIUM,PORCINE/PF 5,000 UNIT/0.5 ML SYRINGE SQ PRN; +LIDOCAINE 1% (10MG/ML) FOR IV START INTRADERMA PRN; -metroNIDAZOLE-NS PMX 500 MG in SALINE 1 100ML.BAG IVPB PRN
[2023-06-17] MEDS: LACTATED RINGERS 1,000 ML IV SCH (07:18)
[2023-06-17 07:35] LABS: Glucose,Whole Blood 162 mg/dL (70-110)
[2023-06-17 07:56] VITALS: TEMP 97.5
[2023-06-17] MEDS ORDERED: LIDOCAINE 1% INJ 10MG/ML (20 ML MDV) ONE (07:59)
[2023-06-17] MEDS ORDERED: PROPOFOL 10 MG/ML 20 ML VIAL IV ONE (07:59)
--- NOTE | 2023-06-17 08:38 | P.PCN ---
Date of Procedure: 06/17/23 Procedure(s) Performed: PREOPERATIVE DIAGNOSIS: History of polyps, change in bowel habits POSTOPERATIVE DIAGNOSIS: Ascending colon polyps, diverticulosis, external hemorrhoid, pilonidal cyst PROCEDURE: Colonoscopy with snare polypectomy ANESTHESIA: MAC SURGEON: Shmuel Harrell M.D. SPECIMENS: Polyps ENDOSCOPIC PROCEDURE: The patient was placed on the endoscopy table in the left decubitus position. The Olympus colonoscope was inserted into the anus and passed under direct visualization to the base of the cecum. The appendiceal orifice was visualized. From that point the scope was slowly withdrawn inspecting all surfaces carefully. There were no neoplastic inflammatory or polypoid lesions throughout the cecum. In the ascending colon 2 small polyps were removed using the snare with cautery technique. The remainder of the ascending transverse descending sigmoid and rectum appeared normal. The patient had mild left-sided diverticulosis. At the anus the patient had a small hemorrhoid in the anterior location. The patient's previous pilonidal abscess was mostly healed. Mild induration persists there. The patient was taken to the recovery room in stable condition per anesthesia guidelines. RECOMMENDATIONS: Await biopsy results. Anticipate repeat colonoscopy 5 years. Will discuss further options regarding pilonidal cyst with patient.
[2023-06-17 08:45] LABS: Glucose,Whole Blood 167 mg/dL (70-110)
[2023-06-17 09:11] VITALS: BP 154/80; PULSE 56; RESP 16
== END 2023-06-17 09:35 | disposition home or self-care (01) ==
LOC: ORWHC2ENDO 07:03
PROVIDERS: ATTEND Surgery
DX: D12.2 Benign neoplasm of ascending colon (principal); K57.30 Diverticulosis of large intestine without perforation or abscess without bleeding; L05.01 Pilonidal cyst with abscess; K64.8 Other hemorrhoids; E11.9 Type 2 diabetes mellitus without complications; I10 Essential (primary) hypertension; I25.10 Atherosclerotic heart disease of native coronary artery without angina pectoris; E78.5 Hyperlipidemia, unspecified; I25.2 Old myocardial infarction; F17.200 Nicotine dependence, unspecified, uncomplicated; Z95.5 Presence of coronary angioplasty implant and graft; Z90.49 Acquired absence of other specified parts of digestive tract; Z98.890 Other specified postprocedural states
CPT/HCPCS: 88305; 45385; J2001; J2704

== ENCOUNTER → 2023-06-30 | Outpatient (CLI) | payer OTHER ==
--- NOTE | 2023-06-30 20:08 | CT ---
EXAMINATION TYPE: CT brain wo con CT DLP: 1120.60 mGycm, Automated exposure control for dose reduction was used. DATE OF EXAM: 06/30/2023 2:19 PM COMPARISON: . CLINICAL INDICATION:Male, 63 years old with history of R51.9 HEADACHE, Chronic headaches since Septem ryan, felt on LT side TECHNIQUE: Brain: Axial CT images of the brain were obtained with coronal and sagittal reformats created and rev iewed. Contrast used: None. Oral contrast used: None. FINDINGS: Brain: Extra-axial spaces: No abnormal extra-axial fluid collections. Ventricular system: Within normal limits Cerebral parenchyma: No acute intraparenchymal hemorrhage or mass effect. The diaz-white junction is well differentiated. Cerebellum: Unremarkable. Mass effect: No evidence of midline shift. Intracranial vasculature: unremarkable Soft tissues: Normal. Calvarium/osseous structures: No depressed skull fracture. No lytic or blastic lesion. Paranasal sinuses and mastoid air cells: Mild scattered paranasal sinus disease. Visualized orbits: Orbital contents are intact. IMPRESSION: No acute intracranial process. Mild scattered paranasal sinus disease.
== END | disposition home or self-care (01) ==
LOC: RADCTMAIN 13:09
PROVIDERS: ATTEND Family Medicine
DX: R51.9 Headache, unspecified (principal); J34.89 Other specified disorders of nose and nasal sinuses
CPT/HCPCS: 70450

== ENCOUNTER → 2023-10-09 | Outpatient (CLI) | payer OTHER ==
--- NOTE | 2023-10-09 13:45 | MR ---
EXAMINATION TYPE: MR brain wo/w con DATE OF EXAM: 10/09/2023 1:33 PM COMPARISON: NONE HISTORY: headache CONTRAST: Patient received 6.5 mL intravenous Gadavist gadolinium contrast. Multiplanar and multispin-echo imaging of the brain was performed . Pre and post contrast enhanced i mages are obtained. The ventricles, basal cisterns and sulci overlying the cerebral convexities are mildly enlarged. There is evidence of mild periventricular white matter ischemic demyelination. Remote deep white matter insults are also noted. No acute edema is seen on diffusion weighted imaging. There is no evidence for midline shift or mass effect. Acute intracranial hemorrhage or extra-axial collection is not evident. No enhancing lesions are seen. The paranasal sinuses and mastoid air cells are well-aerated. IMPRESSION: Age-related atrophic and chronic small vessel ischemic change. No acute intracranial process at this time. No enhancing lesions are seen.
== END | disposition home or self-care (01) ==
LOC: RADMRIMAIN 12:40
PROVIDERS: ATTEND Internal Medicine Pulmonary Disease
DX: I67.82 Cerebral ischemia (principal)
CPT/HCPCS: 70553; A9585

== ENCOUNTER 2023-10-19 17:15 | Emergency (ER) | payer OTHER ==
[2023-10-19 18:08] VITALS: TEMP 98
--- NOTE | 2023-10-19 20:02 | ED ---
Lower Extremity Injury HPI - General Chief Complaint: Extremity Injury, Lower Stated Complaint: L leg lac, medication refill Time Seen by Provider: 10/19/23 19:15 Source: patient, RN notes reviewed Mode of arrival: ambulatory Limitations: no limitations - History of Present Illness Initial Comments: 63-year-old male presenting with left leg abrasion x 3 days. He states 3 days ago he was walking on from [place] in the dark and fell and scraped his left leg. He thinks that the wound may be getting infected due to yellow drainage. He is also requesting a refill on his gabapentin. He takes this daily for chronic neuropathy and states he has been unable to get it refilled due to the holiday weekend. - Related Data Home Medications Medication Instructions Recorded Confirmed HYDROcodone/APAP 10-325MG [[place] 1 tab PO TID 04/02/14 06/17/23 10-325] Gabapentin [Neurontin] 300 mg PO QID 08/11/20 06/17/23 Brimonidine Tartrate [Alphagan P 1 drop LEFT EYE BID 10/19/22 06/17/23 0.2% Ophth Soln] Cholecalciferol (Vitamin D3) 125 mcg PO PC-LUNCH 10/19/22 06/17/23 [Vitamin D3 (125 MCG = 5,000 IU)] Previous Rx's Medication Instructions Recorded Nicotine 14Mg/24Hr Patch [Habitrol] 1 patch TRANSDERM DAILY #14 patch 10/22/22 sitaGLIPtin [Januvia] 100 mg PO DAILY #30 tab 10/22/22 Cephalexin [Keflex] 500 mg PO Q6HR 7 Days #28 cap 10/19/23 Gabapentin [Neurontin] 300 mg PO TID 3 Days #9 cap 10/19/23 Allergies Allergy/AdvReac Type Severity Reaction Status Date / Time No Known Allergies Allergy Verified 06/17/23 07:26 Review of Systems ROS Statement: Those systems with pertinent positive or pertinent negative responses have been documented in the HPI. ROS Other: All systems not noted in ROS Statement are negative. Past Medical History Past Medical History: Coronary Artery Disease (CAD), Chest Pain / Angina, Diabetes Mellitus, Hyperlipidemia, Hypertension, Myocardial Infarction ([place]), Osteoarthritis (OA) Additional Past Medical History / Comment(s): hemmoroids, Hx diverticulitis, hx colon polyps, SOB, chronic back pain. States does not take any medication for Diabetes or hypertension, states "I don't believe in that stuff and don't like the way it makes me feel." Abscess removed from scrotum and buttock, finished amoxicillin 06/12/23 Last Myocardial Infarction Date:: 07-28-16 History of Any Multi-Drug Resistant Organisms: None Reported Date of last positivie culture/infection: 10/20/22 MDRO Source:: Right Hand Past Surgical History: Appendectomy, Heart Catheterization, Heart Catheterization With Stent, Orthopedic Surgery Additional Past Surgical History / Comment(s): Colonoscopy,left eye surgery, right knee surgery, 5 left ear surgeries, (for benign cholesteatoma) has 2 stents total. had angioplasty 09/30/19 Past Anesthesia/Blood Transfusion Reactions: No Reported Reaction, Motion Sickness Additional Past Anesthesia/Blood Transfusion Reaction / Comment(s): no blood transfusion Date of Last Stent Placement:: 2016 Past Psychological History: Bipolar, Depression, Schizophrenia Smoking Status: Current every day smoker - Past Family History Mother History Unknown: Yes Family Medical History: Unable to Obtain Father History Unknown: Yes Family Medical History: Unable to Obtain, COPD General Exam Limitations: no limitations General appearance: alert, in no apparent distress Head exam: Present: atraumatic, normocephalic, normal inspection Respiratory exam: Present: normal lung sounds bilaterally. Absent: respiratory distress, wheezes, rales, rhonchi, stridor Cardiovascular Exam: Present: regular rate, normal rhythm, normal heart sounds. Absent: systolic murmur, diastolic murmur, rubs, gallop, clicks GI/Abdominal exam: Present: soft, normal bowel sounds. Absent: distended, ten derness, guarding, rebound, rigid Neurological exam: Present: alert, oriented X3 Psychiatric exam: Present: normal affect, normal mood Skin exam: Present: warm, dry, intact, normal color, rash (There is a 3 x 3 cm abrasion and a 2 x 2 centimeter abrasion present on anterior aspect of left lower leg. There is mild amount of yellow drainage surrounding wound. No tenderness to palpation. Full range of motion of knee and ankle. Dorsalis pedis pulses intact and sensation intact.) Course Vital Signs 10/19/23 10/19/23 18:05 21:27 Temperature 98 F Pulse Rate 64 57 L Respiratory 16 18 Rate Blood Pressure 172/78 181/81 O2 Sat by Pulse 98 99 Oximetry Medical Decision Making - Medical Decision Making Was pt. sent in by a medical professional or institution (, PA, PHARMACY GRAD INTERN, urgent care, hospital, or group home...) When possible be specific @ -No Did you speak to anyone other than the patient for history (EMS, parent, family, police, friend...)? What history was obtained from this source @ -No Did you review nursing and triage notes (agree or disagree)? Why? @ -I reviewed and agree with nursing and triage notes Were old charts reviewed (outside hosp., previous admission, EMS record, old EKG, old radiological studies, urgent care reports/EKG's, group home records)? Report findings @ -No old charts were reviewed Differential Diagnosis (chest pain, altered mental status, abdominal pain women, abdominal pain men, vaginal bleeding, weakness, fever, dyspnea, syncope, headache, dizziness, GI bleed, back pain, seizure, CVA, palpatations, mental health, musculoskeletal)? @ -Differential Musculoskeletal Muscular strain, contusion, ligament sprain, fracture, arthritis, septic arthritis, bursitis, cellulitis, muscle spasm, nerve compression, DVT, arterial occlusion, herpes zoster, electrolyte abnormality, tumor.... This is not meant to be in all inclusive list EKG interpreted by me (3pts min.). @ -None X-rays interpreted by me (1pt min.). @ -None done CT interpreted by me (1pt min.). @ -None done U/S interpreted by me (1pt. min.). @ -None done What testing was considered but not performed or refused? (CT, X-rays, U/S, labs)? Why? @ -None What meds were considered but not given or refused? Why? @ -None Did you discuss the management of the patient with other professionals (professionals i.e. , PA, PHARMACY GRAD INTERN, lab, RT, psych nurse, social services designee, fisher trot line, teacher, [employer] revenue officer, mental health case manager)? Give summary @ -No Was smoking cessation discussed for >3mins.? @ -No Was critical care preformed (if so, how long)? @ -No Were there social determinants of health that impacted care today? How? (Homelessness, low income, unemployed, alcoholism, drug addiction, transportation, low edu. Level, literacy, decrease access to med. care, half-way, rehab)? @ -No Was there de-escalation of care discussed even if they declined (Discuss DNR or withdrawal of care, Hospice)? DNR status @ -No What co-morbidities impacted this encounter? (DM, HTN, Smoking, COPD, CAD, Cancer, CVA, ARF, Chemo, Hep., AIDS, mental health diagnosis, sleep apnea, morbid obesity)? @ -None Was patient admitted / discharged? Hospital course, mention meds given and route, prescriptions, significant lab abnormalities, going to OR and other pertinent info. @ -Patient was discharged. Patient was seen and evaluated for left leg abrasion x 3 days ago with concern for infection. He is also here for medication refill on his gabapentin. Physical examination reveals 2 abrasions on the left anterior aspect of lower leg with mild amount of yellow drainage consistent with mild infection. Wound was thoroughly cleaned and dressed. Tetanus was updated. Prescribed Keflex for infected abrasion. Wound care was discussed in detail. Strict return parameters were discussed and patient shows understanding and agrees to plan. Gabapentin was refilled for 3 days, patient was given 1 dose here in ER. Patient states he has follow-up appointment this week with his doctor. Case was discussed with my attending Dr. Patel. Patient discharged in stable condition. Undiagnosed new problem with uncertain prognosis? @ -No Drug Therapy requiring intensive monitoring for toxicity (Heparin, Nitro, Insulin, Cardizem)? @ -No Were any procedures done? @ -No Diagnosis/symptom? @ -Infected left leg abrasion, medication refill Acute, or Chronic, or Acute on Chronic? @ -Acute Uncomplicated (without systemic symptoms) or Complicated (systemic symptoms)? @ -Uncomplicated Side effects of treatment? @ -No Exacerbation, Progression, or Severe Exacerbation? @ -No Poses a threat to life or bodily function? How? (Chest pain, [place], [place], pneumonia, PE, COPD, DKA, ARF, appy, cholecystitis, CVA, Diverticulitis, Homicidal, Suicidal, threat to staff... and all critical care pts) @ -No Disposition Clinical Impression: Abrasion of left lower leg, Medication refill Disposition: HOME SELF-CARE Condition: Stable Additional Instructions: Please keep wound covered. You may gently wash affected area with antibacterial soap and water and apply bacitracin or Neosporin. Take Keflex as prescribed. Please return to the Emergency Department if symptoms worsen or any other concerns. Prescriptions: Cephalexin [Keflex] 500 mg PO Q6HR 7 Days #28 cap Gabapentin [Neurontin] 300 mg PO TID 3 Days #9 cap Is patient prescribed a controlled substance at d/c from ED?: No Referrals: Jessica Leyva NPC [Primary Care Provider] - 1-2 days Time of Disposition: 20:55
[2023-10-19] MEDS: DIPH,PERTUS(ACELL)TETVAC-LF 0.5 ML VIAL IM ONE (20:19)
[2023-10-19] MEDS: GABAPENTIN 300 MG CAP PO STA (20:35)
[2023-10-19 21:28] VITALS: BP 181/81; PULSE 57; RESP 18
== END 2023-10-19 21:28 | disposition home or self-care (01) ==
LOC: EC 17:15
DX: S80.812A Abrasion, left lower leg, initial encounter (principal); Z76.0 Encounter for issue of repeat prescription; F17.200 Nicotine dependence, unspecified, uncomplicated; Z23 Encounter for immunization; W19.XXXA Unspecified fall, initial encounter; Y93.01 Activity, walking, marching and hiking
CPT/HCPCS: 90471; 90715; 99283

== ENCOUNTER 2024-08-30 10:53 | Emergency (ER) | payer OTHER ==
--- NOTE | 2024-08-30 12:51 | ED ---
General Adult HPI - General Chief complaint: ENT Stated complaint: Congestion,SOB Time Seen by Provider: 08/30/24 11:03 Source: patient, RN notes reviewed Mode of arrival: ambulatory Limitations: no limitations - History of Present Illness Initial comments: 64-year-old female presents emergency room chief complaint increasing nasal congestion, sinus pressure. Patient states that felt well for last 4 days he states he started some Afrin nasal spray [id number] did not have much relief contacted PCP to send in some prescriptions. Patient states he went from excessive drainage to sinus pressure and states it makes him very anxious he denies any current headache no dizziness no ear pain no sore throat no cough no chest pain. - Related Data Home Medications Medication Instructions Recorded Confirmed HYDROcodone/APAP 10-325MG [[place] 1 tab PO TID 04/02/14 06/17/23 10-325] Gabapentin [Neurontin] 300 mg PO QID 08/11/20 06/17/23 Brimonidine Tartrate [Alphagan P 1 drop LEFT EYE BID 10/19/22 06/17/23 0.2% Ophth Soln] Cholecalciferol (Vitamin D3) 125 mcg PO PC-LUNCH 10/19/22 06/17/23 [Vitamin D3 (125 MCG = 5,000 IU)] Previous Rx's Medication Instructions Recorded Nicotine 14Mg/24Hr Patch [Habitrol] 1 patch TRANSDERM DAILY #14 patch 10/22/22 sitaGLIPtin [Januvia] 100 mg PO DAILY #30 tab 10/22/22 Cephalexin [Keflex] 500 mg PO Q6HR 7 Days #28 cap 10/19/23 Gabapentin [Neurontin] 300 mg PO TID 3 Days #9 cap 10/19/23 Allergies Allergy/AdvReac Type Severity Reaction Status Date / Time No Known Allergies Allergy Verified 08/30/24 11:11 Review of Systems ROS Statement: Those systems with pertinent positive or pertinent negative responses have been documented in the HPI. ROS Other: All systems not noted in ROS Statement are negative. Past Medical History Past Medical History: Coronary Artery Disease (CAD), Chest Pain / Angina, Diabetes Mellitus, Hyperlipidemia, Hypertension, Myocardial Infarction ([place]), Osteoarthritis (OA) Additional Past Medical History / Comment(s): hemmoroids, Hx diverticulitis, hx colon polyps, SOB, chronic back pain. States does not take any medication for Diabetes or hypertension, states "I don't believe in that stuff and don't like the way it makes me feel." Abscess removed from scrotum and buttock, finished amoxicillin 06/12/23 Last Myocardial Infarction Date:: 07-28-16 History of Any Multi-Drug Resistant Organisms: None Reported Date of last positivie culture/infection: 10/20/22 MDRO Source:: Right Hand Past Surgical History: Appendectomy, Heart Catheterization, Heart Catheterization With Stent, Orthopedic Surgery Additional Past Surgical History / Comment(s): Colonoscopy,left eye surgery, right knee surgery, 5 left ear surgeries, (for benign cholesteatoma) has 2 stents total. had angioplasty 09/30/19 Past Anesthesia/Blood Transfusion Reactions: No Reported Reaction, Motion Sickness Additional Past Anesthesia/Blood Transfusion Reaction / Comment(s): no blood transfusion Date of Last Stent Placement:: 2016 Past Psychological History: Bipolar, Depression, Schizophrenia Smoking Status: Current every day smoker Past Alcohol Use History: None Reported Past Drug Use History: Marijuana - Past Family History Mother History Unknown: Yes Family Medical History: Unable to Obtain Father History Unknown: Yes Family Medical History: Unable to Obtain, COPD General Exam Limitations: no limitations General appearance: alert, in no apparent distress Head exam: Present: atraumatic, normocephalic, normal inspection Eye exam: Present: normal appearance, PERRL, EOMI. Absent: scleral icterus, conjunctival injection, periorbital swelling ENT exam: Present: normal exam, normal oropharynx, mucous membranes moist, TM's normal bilaterally Neck exam: Present: normal inspection. Absent: tenderness, meningismus, lymphadenopathy Respiratory exam: Present: normal lung sounds bilaterally. Absent: respiratory distress, wheezes, rales, rhonchi, stridor Cardiovascular Exam: Present: regular rate, normal rhythm, normal heart sounds. Absent: systolic murmur, diastolic murmur, rubs, gallop, clicks GI/Abdominal exam: Present: soft, normal bowel sounds. Absent: distended, tenderness, guarding, rebound, rigid Course Vital Signs 08/30/24 08/30/24 11:01 13:27 Temperature 97.7 F 98.0 F Pulse Rate 70 76 Respiratory 18 20 Rate Blood Pressure 125/68 126/72 O2 Sat by Pulse 97 99 Oximetry Medical Decision Making - Medical Decision Making Was pt. sent in by a medical professional or institution (SANGEETA Stauffer, RAILROAD CAR REPAIR SUPERVISOR, urgent care, hospital, or usp...) When possible be specific @ -No Did you speak to anyone other than the patient for history (EMS, parent, family, police, friend...)? What history was obtained from this source @ -No Did you review nursing and triage notes (agree or disagree)? Why? @ -I reviewed and agree with nursing and triage notes Were old charts reviewed (outside hosp., previous admission, EMS record, old EKG, old radiological studies, urgent care reports/EKG's, usp records)? Report findings @ -No old charts were reviewed Differential Diagnosis (chest pain, altered mental status, abdominal pain women, abdominal pain men, vaginal bleeding, weakness, fever, dyspnea, syncope, headache, dizziness, GI bleed, back pain, seizure, CVA, palpatations, mental health, musculoskeletal)? @ -COVID 19, RSV, influenza, pneumonia, acute bronchitis, URI, this list is not all inclusive EKG interpreted by me (3pts min.). @ -None X-rays interpreted by me (1pt min.). @ -None done CT interpreted by me (1pt min.). @ -None done U/S interpreted by me (1pt. min.). @ -None done What testing was considered but not performed or refused? (CT, X-rays, U/S, labs)? Why? @ -None What meds were considered but not given or refused? Why? @ -None Did you discuss the management of the patient with other professionals (professionals i.e. SANGEETA Stauffer, RAILROAD CAR REPAIR SUPERVISOR, lab, RT, psych nurse, director of social media marketing, warehouse shipping supervisor, teacher, amphibious operations officer, telephonic nurse case manager)? Give summary @ -No Was smoking cessation discussed for >3mins.? @ -No Was critical care preformed (if so, how long)? @ -No Were there social determinants of health that impacted care today? How? (Homelessness, low income, unemployed, alcoholism, drug addiction, transportation, low edu. Level, literacy, decrease access to med. care, assisted, rehab)? @ -No Was there de-escalation of care discussed even if they declined (Discuss DNR or withdrawal of care, Hospice)? DNR status @ -No What co-morbidities impacted this encounter? (DM, HTN, Smoking, COPD, CAD, Cancer, CVA, ARF, Chemo, Hep., AIDS, mental health diagnosis, sleep apnea, morbid obesity)? @ -None Was patient admitted / discharged? Hospital course, mention meds given and route, prescriptions, significant lab abnormalities, going to OR and other pertinent info. @ -Discharge patient has influenza B positive patient has had the window of Tamiflu. Patient will be discharged in stable condition return parameters néstor. Undiagnosed new problem with uncertain prognosis? @ -No Drug Therapy requiring intensive monitoring for toxicity (Heparin, Nitro, Insulin, Cardizem)? @ -No Were any procedures done? @ -No Diagnosis/symptom? @ -Influenza B Acute, or Chronic, or Acute on Chronic? @ -Acute Uncomplicated (without systemic symptoms) or Complicated (systemic symptoms)? @ -Complicated Side effects of treatment? @ -No Exacerbation, Progression, or Severe Exacerbation? @ -No Poses a threat to life or bodily function? How? (Chest pain, [place], [place], pneumonia, PE, COPD, DKA, ARF, appy, cholecystitis, CVA, Diverticulitis, Homicidal, Suicidal, threat to staff... and all critical care pts) @ -No - Lab Data Lab Results 08/30/24 Range/Units 12:23 Influenza Type A (PCR) Not Detected (Not Detectd) Influenza Type B (PCR) Detected A (Not Detectd) RSV (PCR) Not Detected (Not Detectd) SARS-CoV-2 (PCR) Not Detected (Not Detectd) Disposition Clinical Impression: Influenza B Disposition: HOME SELF-CARE Condition: Stable Instructions (If sedation given, give patient instructions): Influenza (ED) Additional Instructions: Please return to the Emergency Department if symptoms worsen or any other rosalba rns. Is patient prescribed a controlled substance at d/c from ED?: No Referrals: Benito Gomez MD [Primary Care Provider] - 1-2 days Time of Disposition: 13:24
[2024-08-30 13:19] LABS: Influenza A Not Detected (Not Detectd); Influenza B Detected (Not Detectd); RSV Not Detected (Not Detectd)
[2024-08-30 13:29] VITALS: BP 126/72; PULSE 76; RESP 20; TEMP 98
== END 2024-08-30 13:28 | disposition home or self-care (01) ==
LOC: EC 10:53
DX: J10.1 Influenza due to other identified influenza virus with other respiratory manifestations (principal); F17.200 Nicotine dependence, unspecified, uncomplicated
CPT/HCPCS: 87636; 99284